=== PATIENT | male | born 1955 | race Caucasian/White ===

== ENCOUNTER 2018-06-09 07:11 | Day surgery (SDC) | payer BC, OTHER ==
[2018-06-05 12:45] VITALS: BMI 38.3
[~2018-06-09 07:11] MED LIST: LACTATED RINGERS 1,000 ML IV SCH; LIDOCAINE 1% 20 ML VIAL (10MG/ML) FOR IV START INTRADERMA PRN
[2018-06-09 07:28] VITALS: RESP 16; TEMP 97
[2018-06-09 07:32] LABS: Glucose,Whole Blood 147 mg/dL (75-99)
[2018-06-09] MEDS ORDERED: LIDOCAINE 1% INJ 10MG/ML (20 ML MDV) ONE (08:23)
[2018-06-09] MEDS ORDERED: PROPOFOL 10 MG/ML 20 ML VIAL IV ONE (08:23)
[2018-06-09] MEDS ORDERED: fentaNYL (PF) 50 MCG/ML 2 ML AMP ONE (08:23)
[2018-06-09 08:59] LABS: Glucose,Whole Blood 148 mg/dL (75-99)
--- NOTE | 2018-06-09 08:59 | P.PCN ---
Date of Procedure: 06/09/18 Procedure(s) Performed: Procedure: Total colonoscopy and polypectomy. Preoperative diagnosis: Blood in the stools. Postoperative diagnosis: 1. Sigmoid diverticulosis with no evidence of acute diverticulitis or strictures. 2. Two small polyps in the proximal sigmoid snared but no large polyps or cancer. Preparation: HalfLytely prep. Sedation: Was provided by anesthesia. Brief clinical history: The patient is 62-year-old male who is referred for this evaluation because of finding of occult blood in his stools. The patient has no abdominal complaints, bleeding or anemia. He has history of polyps and had prior colonoscopies the last was around 2-3 years ago. The patient has no overt bleeding, change in bowel habits or abdominal pain. There is no history of anemia. Procedure: With the patient on his left lateral decubitus position and after informed consent and adequate sedation, the perianal area was inspected and it did not show any fissures or fistulas. There were no masses felt on digital rectal examination. The Olympus CFQ 160L video colonoscope was then inserted in the rectum in the usual fashion and advanced to the cecum. There were a few diverticular orifices seen scattered in the distal sigmoid with no evidence of acute diverticulitis or strictures. The mucosa appeared healthy. 2 small polyps were seen in the proximal sigmoid which were snared and retrieved by suction but there were no large polyps or cancer. I retroflexed endoscope in the rectum before the endoscope was withdrawn. The patient tolerated the procedure well. Plan: The patient was reassured. In the absence of upper GI complaints or anemia, I did not recommend upper GI workup at this time for the workup of his Hemoccult positive stools and that can be kept as a contingency based on his course. With his history of polyps, I recommended repeat colonoscopy in 5 years.
[2018-06-09 09:17] VITALS: BP 160/95; PULSE 71
[2018-06-09] MEDS ORDERED: LIDOCAINE 1% 20 ML VIAL (10MG/ML) FOR IV START INTRADERMA PRN (19:04)
[2018-06-09] MEDS ORDERED: MIDAZOLAM 2 MG/2 ML VIAL IV PRN (19:04)
[2018-06-09] MEDS ORDERED: LACTATED RINGERS 1,000 ML IV SCH (19:15)
== END 2018-06-09 09:27 | disposition home or self-care (01) ==
LOC: ORWHC2ENDO 07:11
DX: D12.5 Benign neoplasm of sigmoid colon (principal); K57.30 Diverticulosis of large intestine without perforation or abscess without bleeding; K21.9 Gastro-esophageal reflux disease without esophagitis; E11.9 Type 2 diabetes mellitus without complications; Z79.4 Long term (current) use of insulin; I10 Essential (primary) hypertension; F17.210 Nicotine dependence, cigarettes, uncomplicated; Z79.899 Other long term (current) drug therapy
CPT/HCPCS: 88305; 45385; J2001; J3010; J2704

== ENCOUNTER 2018-07-30 14:11 | Emergency (ER) | payer OTHER ==
[2018-07-30] MEDS ORDERED: SODIUM CHLORIDE 0.9% 500 ML 500 ML IV ONE (14:38)
[2018-07-30] MEDS ORDERED: SODIUM CHLORIDE 0.9% 1,000 ML IV ONE (14:38)
[2018-07-30 15:24] VITALS: RESP 20
--- NOTE | 2018-07-30 15:25 | ED ---
General Adult HPI - General Chief complaint: Recheck/Abnormal Lab/Rx Stated complaint: muscle fatigue/joint pain Time Seen by Provider: 07/30/18 14:20 Source: patient, RN notes reviewed Mode of arrival: ambulatory Limitations: no limitations - History of Present Illness Initial comments: 62-year-old male presents emergency department for abnormal lab work. Patient states that his emts Dr. Charles referred him to the emergency department for IV fluids secondary to elevated CK level. Patient states that he 's been having muscle aches and pains diffusely over the last 6 weeks. He's had extensive outpatient testing and recently discontinued on Zocor today. Patient states that he is scheduled for right-sided ureteral muscle biopsy, EMG and further testing. Patient states that he was recently started on steroids and states that has to mostly helped his symptoms. Patient states he has had some joint swelling. Patient states she's had no other recent changes in medication or any other health history. Patient does admit to some fatigue. - Related Data Home Medications Medication Instructions Recorded Confirmed Enalapril [Vasotec] 20 mg PO DAILY 06/05/18 07/30/18 Naproxen [Naprosyn] 500 mg PO Q12HR PRN 06/05/18 07/30/18 Omeprazole [PriLOSEC] 20 mg PO AC-BRKFST 06/05/18 07/30/18 Sildenafil [Revatio] 20 mg PO DAILY 06/05/18 07/30/18 buPROPion HCL [buPROPion HCL SR] 150 mg PO BID 06/05/18 07/30/18 metFORMIN HCL [Glucophage] 1,000 mg PO BID 06/05/18 07/30/18 Atenolol [Tenormin] 50 mg PO DAILY 07/30/18 07/30/18 Insulin Glargine [Lantus] 100 unit SQ DAILY 07/30/18 07/30/18 Allergies Allergy/AdvReac Type Severity Reaction Status Date / Time No Known Allergies Allergy Verified 07/30/18 15:38 Review of Systems ROS Statement: Those systems with pertinent positive or pertinent negative responses have been documented in the HPI. ROS Other: All systems not noted in ROS Statement are negative. Past Medical History Past Medical History: Diabetes Mellitus, GERD/Reflux, Hypertension Additional Past Medical History / Comment(s): stool sample positive for blood History of Any Multi-Drug Resistant Organisms: None Reported Past Surgical History: Appendectomy, Hernia Repair, Orthopedic Surgery Additional Past Surgical History / Comment(s): UMB HERNIA. RT KNEE OSTEOCHONDROMA EXC. COLONOSCOPIES. Past Anesthesia/Blood Transfusion Reactions: No Reported Reaction Past Psychological History: Depression Smoking Status: Current every day smoker Past Alcohol Use History: Occasional Past Drug Use History: None Reported - Past Family History Mother Family Medical History: Cancer General Exam Limitations: no limitations General appearance: alert, in no apparent distress Head exam: Present: atraumatic, normocephalic, normal inspection Neck exam: Present: normal inspection, full ROM. Absent: tenderness, meningismus, lymphadenopathy Respiratory exam: Present: normal lung sounds bilaterally. Absent: respiratory distress, wheezes, rales, rhonchi, stridor Cardiovascular Exam: Present: regular rate, normal rhythm, normal heart sounds. Absent: systolic murmur, diastolic murmur, rubs, gallop, clicks GI/Abdominal exam: Present: soft, normal bowel sounds. Absent: distended, tenderness, guarding, rebound, rigid Extremities exam: Present: normal inspection, full ROM, normal capillary refill. Absent: tenderness, pedal edema, joint swelling, calf tenderness Neurological exam: Present: alert, oriented X3, CN II-XII intact, reflexes normal. Absent: motor sensory deficit Skin exam: Present: warm, dry, intact, normal color. Absent: rash Course Vital Signs 07/30/18 07/30/18 14:15 15:17 Temperature 98.1 F Pulse Rate 98 96 Respiratory 18 20 Rate Blood Pressure 145/73 159/71 O2 Sat by Pulse 97 96 Oximetry Medical Decision Making - Medical Decision Making 8-year-old male presented for elevated CK, hydration. Patient has been ongoing muscle aches and pains. Patient has no specific complaints. Patient CT is elevated at 1293. Patient was given 1500 mL of fluid in emergency department. He states he does feel improved. Patient is scheduled for further tests no patient. He did stop Zocor we discussed that he needs to have his blood redrawn and return for any new symptoms. - Lab Data Result diagrams: 07/30/18 15:00 07/30/18 15:00 Lab Results 07/30/18 07/30/18 07/30/18 Range/Units 15:00 15:00 15:00 WBC 12.6 H (3.8-10.6) k/uL RBC 4.66 (4.30-5.90) m/uL Hgb 9.5 L (13.0-17.5) gm/dL Hct 31.1 L (39.0-53.0) % MCV 66.8 L (80.0-100.0) fL MCH 20.3 L (25.0-35.0) pg MCHC 30.4 L (31.0-37.0) g/dL RDW 16.7 H (11.5-15.5) % Plt Count 437 (150-450) k/uL Neutrophils % 82 % Lymphocytes % 9 % Monocytes % 6 % Eosinophils % 1 % Basophils % 0 % Neutrophils # 10.3 H (1.3-7.7) k/uL Lymphocytes # 1.2 (1.0-4.8) k/uL Monocytes # 0.8 (0-1.0) k/uL Eosinophils # 0.1 (0-0.7) k/uL Basophils # 0.0 (0-0.2) k/uL Hypochromasia Marked Anisocytosis Slight Microcytosis Marked PT 10.1 (9.0-12.0) sec INR 1.0 (<1.2) APTT 25.0 (22.0-30.0) sec Sodium 133 L (137-145) mmol/L Potassium 5.2 H (3.5-5.1) mmol/L Chloride 100 (98-107) mmol/L Carbon Dioxide 22 (22-30) mmol/L Anion Gap 11 mmol/L BUN 23 H (9-20) mg/dL Creatinine 0.92 (0.66-1.25) mg/dL Est GFR (CKD-EPI)AfAm >90 (>60 ml/min/1.73 sqM) Est GFR (CKD-EPI)NonAf >90 (>60 ml/min/1.73 sqM) Glucose 192 H (74-99) mg/dL Calcium 9.1 (8.4-10.2) mg/dL Total Bilirubin 0.3 (0.2-1.3) mg/dL AST 89 H (17-59) U/L ALT 47 (21-72) U/L Alkaline Phosphatase 53 (38-126) U/L Creatine Kinase 1273 H* (55-170) U/L Total Protein 6.3 (6.3-8.2) g/dL Albumin 3.5 (3.5-5.0) g/dL Urine Color Urine Appearance (Clear) Urine pH (5.0-8.0) Ur Specific [place] (1.001-1.035) Urine Protein (Negative) Urine Glucose (UA) (Negative) Urine Ketones (Negative) Urine Blood (Negative) Urine Nitrite (Negative) Urine Bilirubin (Negative) Urine Urobilinogen (<2.0) mg/dL Ur Leukocyte Esterase (Negative) Urine Mucus (None) /hpf 07/30/18 Range/Units 15:35 WBC (3.8-10.6) k/uL RBC (4.30-5.90) m/uL Hgb (13.0-17.5) gm/dL Hct (39.0-53.0) % MCV (80.0-100.0) fL MCH (25.0-35.0) pg MCHC (31.0-37.0) g/dL RDW (11.5-15.5) % Plt Count (150-450) k/uL Neutrophils % % Lymphocytes % % Monocytes % % Eosinophils % % Basophils % % Neutrophils # (1.3-7.7) k/uL Lymphocytes # (1.0-4.8) k/uL Monocytes # (0-1.0) k/uL Eosinophils # (0-0.7) k/uL Basophils # (0-0.2) k/uL Hypochromasia Anisocytosis Microcytosis PT (9.0-12.0) sec INR (<1.2) APTT (22.0-30.0) sec Sodium (137-145) mmol/L Potassium (3.5-5.1) mmol/L Chloride (98-107) mmol/L Carbon Dioxide (22-30) mmol/L Anion Gap mmol/L BUN (9-20) mg/dL Creatinine (0.66-1.25) mg/dL Est GFR (CKD-EPI)AfAm (>60 ml/min/1.73 sqM) Est GFR (CKD-EPI)NonAf (>60 ml/min/1.73 sqM) Glucose (74-99) mg/dL Calcium (8.4-10.2) mg/dL Total Bilirubin (0.2-1.3) mg/dL AST (17-59) U/L ALT (21-72) U/L Alkaline Phosphatase (38-126) U/L Creatine Kinase (55-170) U/L Total Protein (6.3-8.2) g/dL Albumin (3.5-5.0) g/dL Urine Color Light Yellow Urine Appearance Clear (Clear) Urine pH 5.0 (5.0-8.0) Ur Specific [place] 1.005 (1.001-1.035) Urine Protein Negative (Negative) Urine Glucose (UA) Negative (Negative) Urine Ketones Negative (Negative) Urine Blood Trace H (Negative) Urine Nitrite Negative (Negative) Urine Bilirubin Negative (Negative) Urine Urobilinogen <2.0 (<2.0) mg/dL Ur Leukocyte Esterase Negative (Negative) Urine Mucus Rare H (None) /hpf Disposition Clinical Impression: Elevated CK, Myalgia Disposition: HOME SELF-CARE Condition: Stable Instructions: Musculoskeletal Pain (ED) Additional Instructions: Please return to the Emergency Department if symptoms worsen or any other concerns. Is patient prescribed a controlled substance at d/c from ED?: No Referrals: Ludy South MD [Primary Care Provider] - 1-2 days Time of Disposition: 16:08
[2018-07-30 15:28] LABS: Prothrombin Time 10.1 sec (9.0-12.0)
[2018-07-30 15:40] LABS: ALT 47 U/L (21-72); AST 89 U/L (17-59); Albumin 3.5 g/dL (3.5-5.0); Alkaline Phosphatase 53 U/L (38-126); Anion Gap 11 mmol/L; Blood Urea Nitrogen 23 mg/dL (9-20); Calcium 9.1 mg/dL (8.4-10.2); Carbon Dioxide 22 mmol/L (22-30); Chloride 100 mmol/L (98-107); Glucose 192 mg/dL (74-99); Potassium 5.2 mmol/L (3.5-5.1); Sodium 133 mmol/L (137-145); Total Bilirubin 0.3 mg/dL (0.2-1.3); Total Protein 6.3 g/dL (6.3-8.2)
[2018-07-30 15:42] LABS: Creatine Kinase 1273 U/L (55-170)
[2018-07-30 15:46] LABS: Anisocytosis Slight; Basophils % (A) 0 %; Eosinophils # (A) 0.1 k/uL (0-0.7); Eosinophils % (A) 1 %; HCT 31.1 % (39.0-53.0); HGB 9.5 gm/dL (13.0-17.5); Hypochromasia Marked; Lymphocytes # (A) 1.2 k/uL (1.0-4.8); Lymphocytes % (A) 9 %; MCH 20.3 pg (25.0-35.0); MCHC 30.4 g/dL (31.0-37.0); MCV 66.8 fL (80.0-100.0); Mean Platelet Volume 6.7; Microcytosis Marked; Monocytes # (A) 0.8 k/uL (0-1.0); Monocytes % (A) 6 %; Neutrophils # (A) 10.3 k/uL (1.3-7.7); Neutrophils % (A) 82 %; Platelet Count 437 k/uL (150-450); RBC 4.66 m/uL (4.30-5.90); RDW 16.7 % (11.5-15.5); WBC 12.6 k/uL (3.8-10.6)
[2018-07-30 15:46] LABS: Appearance,Urine Clear (Clear); Bilirubin,Urine Negative (Negative); Blood,Urine Trace (Negative); Color,Urine Light Yellow; Glucose,Urine (UA) Negative (Negative); Ketones,Urine Negative (Negative); Leukocyte Esterase,Urine Negative (Negative); Mucus,Urine Rare /hpf; Nitrite,Urine Negative (Negative); Protein,Urine Negative (Negative); Specific Gravity,Urine 1.005 (1.001-1.035); Urobilinogen,Urine <2.0 mg/dL (<2.0)
[2018-07-30 16:32] VITALS: BP 135/67; PULSE 82; TEMP 98.3
== END 2018-07-30 16:55 | disposition home or self-care (01) ==
LOC: EC 14:11
DX: M79.10 Myalgia, unspecified site (principal); R79.89 Other specified abnormal findings of blood chemistry; M25.40 Effusion, unspecified joint; D16.21 Benign neoplasm of long bones of right lower limb; E11.9 Type 2 diabetes mellitus without complications; K21.9 Gastro-esophageal reflux disease without esophagitis; I10 Essential (primary) hypertension; F32.9 Major depressive disorder, single episode, unspecified; F17.200 Nicotine dependence, unspecified, uncomplicated; Z79.4 Long term (current) use of insulin; Z79.899 Other long term (current) drug therapy
CPT/HCPCS: 36415; 80053; 81001; 82550; 85025; 85610; 85730; 96360; 99283

== ENCOUNTER 2018-07-31 06:30 | Day surgery (SDC) | payer OTHER ==
[2018-07-28 17:15] VITALS: BMI 39.0
[~2018-07-31 06:30] MED LIST changes: +HYDROmorphone 1 MG/ML 1 ML SYRINGE IVP PRN; +MIDAZOLAM 2 MG/2 ML VIAL IV PRN
[2018-07-31 07:12] VITALS: TEMP 98.6
[2018-07-31 07:21] LABS: Glucose,Whole Blood 100 mg/dL (75-99)
[2018-07-31] MEDS ORDERED: LACTATED RINGERS 1,000 ML IV ONE ×2 (07:21)
[2018-07-31] MEDS ORDERED: LIDOCAINE 1% INJ 10MG/ML (20 ML MDV) ONE (08:11)
[2018-07-31] MEDS ORDERED: PROPOFOL 10 MG/ML 20 ML VIAL IV ONE (08:11)
[2018-07-31 08:32] LABS: Glucose,Whole Blood 109 mg/dL (75-99)
[2018-07-31 08:33] VITALS: RESP 16
--- NOTE | 2018-07-31 08:33 | P.PCN ---
Date of Procedure: 07/31/18 Procedure(s) Performed: Procedure: Esophagogastroduodenoscopy and biopsy. Preoperative diagnosis: Anemia and and Hemoccult-positive stools. Postoperative diagnosis: 1. Small sliding hiatal hernia with no obvious esophagitis or complicated reflux disease. 2. Mild antral gastritis with no ulcers or gastric outlet obstruction or bleeding. 3. Multiple biopsies obtained from the duodenum, antrum and esophagus. Preparation and sedation: Was provided by anesthesia. Brief clinical history: The patient is a 62-year-old male who is scheduled for this evaluation because of anemia and Hemoccult-positive stools. He had a colonoscopy in May of this year that revealed diverticulosis but there was no findings to explain his anemia and occult blood positive stools. He was thus scheduled for this upper endoscopy. The patient had normal hemoglobin and normal MCV back in 2014. This year his hemoglobin was 9.3 with MCV around 66. No overt bleeding or upper GI complaints. Procedure: With the patient on his left lateral decubitus position and after informed consent and adequate sedation, I passed the Olympus-GIF 160 video upper endoscope through the cricopharyngeus down the esophagus. There was a small sliding hiatal hernia but no obvious esophagitis or complicated reflux disease. GE junction was around 40 cm from the incisors. The endoscope was then passed into the stomach which was insufflated with air and inspected in detail including the retroflex view in the cardia. There was some mottling and erythema in the antrum and several fading erosions but no obvious ulcers or bleeding. Pyloric channel, duodenal bulb, post bulbar area and descending duodenum appeared within normal limits. Because of his history, I obtained biopsies from the duodenum, antrum and esophagus then the endoscope was withdrawn. The patient tolerated the procedure well. Plan: The patient was reassured. Will await biopsy results. Consideration can be given for a capsule endoscopy if he continues to manifest blood loss anemia. He will follow up with you as planned and I will be happy to see in the office if needed.
[2018-07-31 08:46] VITALS: BP 161/80; PULSE 84
== END 2018-07-31 09:09 | disposition home or self-care (01) ==
LOC: ORWHC2ENDO 06:30
DX: K31.9 Disease of stomach and duodenum, unspecified (principal); K21.0 Gastro-esophageal reflux disease with esophagitis; K29.70 Gastritis, unspecified, without bleeding; K44.9 Diaphragmatic hernia without obstruction or gangrene; D64.9 Anemia, unspecified; R19.5 Other fecal abnormalities; E11.9 Type 2 diabetes mellitus without complications; I10 Essential (primary) hypertension; Z79.52 Long term (current) use of systemic steroids; Z79.899 Other long term (current) drug therapy; Z79.84 Long term (current) use of oral hypoglycemic drugs
CPT/HCPCS: 88305; 43239; J2001; J2704

== ENCOUNTER 2018-09-10 06:39 | Day surgery (SDC) | payer OTHER ==
[2018-09-09 12:06] VITALS: BMI 39.0
[~2018-09-10 06:39] MED LIST changes: +DEXAMETHASONE SOD PHOSPHATE 10 MG/ML 1 ML VIAL IV ONE; +HEPARIN SODIUM,PORCINE 5,000 UNIT/ML 1 ML VIAL SQ ONE; +ONDANSETRON 4 MG/2 ML VIAL IVP ONE; +Pre Op ABX Message 1 EACH MISC MISCELLANE ONE; +SCOPOLAMINE 1.5MG/72HR PATCH TRANSDERM ONE
[2018-09-10 07:41] VITALS: RESP 16; TEMP 98.4
--- NOTE | 2018-09-10 07:56 | P.GSHP ---
History of Present Illness H&P Date: 09/10/18 Chief Complaint: Myositis This is a 63-year-old male who presents today for a left thigh muscle biopsy. Patient is being worked up for myositis. Past Medical History Past Medical History: Diabetes Mellitus, GERD/Reflux, Hypertension, Osteoarthritis (OA), Prostate Disorder Additional Past Medical History / Comment(s): stool sample positive for blood, PULMONARY FIBROSIS , ANEMIA History of Any Multi-Drug Resistant Organisms: None Reported Past Surgical History: Appendectomy, Hernia Repair, Orthopedic Surgery Additional Past Surgical History / Comment(s): UMBILICA HERNIA. RT KNEE SURGERY . COLONOSCOPIES.EGD Past Anesthesia/Blood Transfusion Reactions: No Reported Reaction Smoking Status: Current every day smoker - Past Family History Mother Family Medical History: Cancer Medications and Allergies Home Medications Medication Instructions Recorded Confirmed Type Enalapril [Vasotec] 20 mg PO DAILY 06/05/18 09/10/18 History Naproxen [Naprosyn] 500 mg PO Q12HR PRN 06/05/18 09/10/18 History Omeprazole [PriLOSEC] 20 mg PO AC-BRKFST 06/05/18 09/10/18 History Sildenafil [Revatio] 20 mg PO DAILY 06/05/18 09/10/18 History buPROPion HCL [buPROPion HCL SR] 150 mg PO BID 06/05/18 09/10/18 History metFORMIN HCL [Glucophage] 1,000 mg PO BID 06/05/18 09/10/18 History Insulin Glargine [Lantus] 80 unit SQ DAILY 07/30/18 09/10/18 History Aspirin 325 mg PO DAILY 09/09/18 09/10/18 History Hydrochlorothiazide [Hydrodiuril] 25 mg PO BID 09/09/18 09/10/18 History Metoprolol Succinate (ER) [Toprol 50 mg PO DAILY 09/09/18 09/10/18 History Xl] Multivitamin [Men's Multi-Vitamin] 1 each PO DAILY 09/09/18 09/10/18 History glipiZIDE [Glucotrol] 10 mg PO AC-BID 09/09/18 09/10/18 History predniSONE 30 mg PO DAILY 09/09/18 09/10/18 History Allergies Allergy/AdvReac Type Severity Reaction Status Date / Time No Known Allergies Allergy Verified 09/10/18 07:41 Surgical - Exam Vital Signs Temp Pulse Resp BP Pulse Ox 98.4 F 103 H 16 146/75 96 09/10/18 07:39 09/10/18 07:39 09/10/18 07:39 09/10/18 07:39 09/10/18 07:39 - General well developed, no distress - Eyes PERRL - ENT normal pinna - Neck no masses - Respiratory normal expansion - Cardiovascular Rhythm: regular - Abdomen Abdomen: soft, non tender - Neurologic Weakness Assessment and Plan Assessment: Patient is being worked up for myositis. Patient undergo left thigh muscle biopsy patient is aware the risk of hematoma, bleeding infection.
[2018-09-10 08:09] LABS: Glucose,Whole Blood 112 mg/dL (75-99)
[2018-09-10] MEDS ORDERED: PROPOFOL 10 MG/ML 20 ML VIAL IV ONE (08:15)
[2018-09-10] MEDS ORDERED: KETOROLAC 30 MG/ML 1 ML VIAL ONE (08:15)
[2018-09-10] MEDS ORDERED: fentaNYL (PF) 50 MCG/ML 2 ML AMP ONE (08:15)
[2018-09-10] MEDS ORDERED: KETAMINE 10 MG/ML 20 ML VIAL ONE (08:15)
[2018-09-10] MEDS ORDERED: MIDAZOLAM 2 MG/2 ML VIAL ONE (08:15)
[2018-09-10] MEDS ORDERED: SODIUM CHLORIDE 0.9% 50 ML with ceFAZolin 2,000 MG IV ONE ×2 (08:20)
[2018-09-10] MEDS ORDERED: BUPIVACAIN-EPI 0.25%-1:200,000 30 ML VIAL SQ ONE ×3 (08:34)
--- NOTE | 2018-09-10 09:40 | P.OP ---
Date of Procedure: 09/10/18 Preoperative Diagnosis: Myositis Postoperative Diagnosis: Defer to pathology Myositis Procedure(s) Performed: Left anterior thigh muscle biopsy Anesthesia: MAC Surgeon: Gregg Garsia Estimated Blood Loss (ml): 5 Pathology: other (Left anterior thigh muscle biopsy) Condition: stable Disposition: PACU Description of Procedure: The patient's placed on the operative table in the supine position. He received IV sedation. His left thigh was prepped and draped usual sterile fashion. The area was localized 1% local Xylocaine. A lung to skin incision was made on the left anterior thigh. And then using cautery and subcu tissue divided. The fascial muscle was divided with sharp dissection and then a portion of the muscle was dissected free. The specimen measured 1.5 x 4 cm in length. The specimen was then divided following the muscle biopsy protocol. The specimen sent to pathology. His fashion was closed 0 Vicryl suture. The skin was closed interrupted 3-0 Monocryl suture. Dermabond was applied. Lakhwinder wrap was applied to the thigh. Patient top she will well and was sent to recovery in stable condition.
[2018-09-10 10:12] VITALS: BP 118/69; PULSE 93
== END 2018-09-10 10:34 | disposition home or self-care (01) ==
LOC: OR 06:39
PROVIDERS: ATTEND Surgery
DX: M62.552 Muscle wasting and atrophy, not elsewhere classified, left thigh (principal); E11.9 Type 2 diabetes mellitus without complications; K21.9 Gastro-esophageal reflux disease without esophagitis; I10 Essential (primary) hypertension; E78.5 Hyperlipidemia, unspecified; M19.90 Unspecified osteoarthritis, unspecified site; N42.9 Disorder of prostate, unspecified; J84.10 Pulmonary fibrosis, unspecified; D64.9 Anemia, unspecified; E66.01 Morbid (severe) obesity due to excess calories; Z68.39 Body mass index [BMI] 39.0-39.9, adult; F17.200 Nicotine dependence, unspecified, uncomplicated; Z79.82 Long term (current) use of aspirin; Z79.4 Long term (current) use of insulin; Z79.52 Long term (current) use of systemic steroids; Z79.899 Other long term (current) drug therapy
CPT/HCPCS: 20205; J2250; J1644; J2405; J3010; J1885; J0690; J2704

== ENCOUNTER 2019-01-22 15:05 | Inpatient (IN) | payer OTHER ==
[2019-01-22] MEDS ORDERED: ACETAMINOPHEN TAB 500 MG TAB PO STA (15:31)
[2019-01-22] MEDS ORDERED: SODIUM CHLORIDE 0.9% 1,000 ML IV STA ×2 (15:31→18:04)
[2019-01-22] MEDS ORDERED: SODIUM CHLORIDE 0.9% 500 ML 500 ML IV STA (15:31)
[2019-01-22] MEDS ORDERED: MORPHINE SULFATE 4 MG/ML SYRINGE IV STA (15:31)
[2019-01-22] MEDS ORDERED: IBUPROFEN 800 MG TAB PO STA (15:31)
[2019-01-22 16:11] LABS: ALT 20 U/L (21-72); AST 23 U/L (17-59); Albumin 3.8 g/dL (3.5-5.0); Alkaline Phosphatase 350 U/L (38-126); Anion Gap 12 mmol/L; Blood Urea Nitrogen 26 mg/dL (9-20); Calcium 9.6 mg/dL (8.4-10.2); Carbon Dioxide 22 mmol/L (22-30); Chloride 97 mmol/L (98-107); Glucose 330 mg/dL (74-99); Magnesium 1.3 mg/dL (1.6-2.3); Phosphorus 3.3 mg/dL (2.5-4.5); Potassium 4.5 mmol/L (3.5-5.1); Sodium 131 mmol/L (137-145); Total Bilirubin 0.5 mg/dL (0.2-1.3); Total Protein 6.8 g/dL (6.3-8.2)
[2019-01-22 16:12] LABS: Partial Thromboplastin Time 26.4 sec (22.0-30.0); Prothrombin Time 10.5 sec (9.0-12.0)
[2019-01-22 16:14] LABS: Anisocytosis Slight; HGB 11.8 gm/dL (13.0-17.5); Hypochromasia Moderate; MCHC 30.3 g/dL (31.0-37.0); MCV 69.4 fL (80.0-100.0); Mean Platelet Volume 6.9; Microcytosis Marked; Platelet Count 445 k/uL (150-450); RBC 5.62 m/uL (4.30-5.90); RDW 17.9 % (11.5-15.5); WBC 25.9 k/uL (3.8-10.6)
--- NOTE | 2019-01-22 16:19 | ED ---
Weakness HPI - General Chief complaint: Weakness Stated complaint: Pain everywhere, Nausea, Dizziness Time Seen by Provider: 01/22/19 15:31 Source: patient, RN notes reviewed, old records reviewed Mode of arrival: ambulatory Limitations: no limitations - History of Present Illness Initial comments: This is a 63-year-old male the ER for evaluation presents today for evaluation regards to weakness pain. Muscle pain bodyaches body pain. Not feeling well. Multiple different changes and lab values. Patient is recent diagnosis of polymyositis. He is on multiple new medications including steroids and CellCept. Patient has been taking medications as directed feels like his symptoms are progressively worsening. Patient denies fevers, no significant headaches she does admit to some weakness main complaint being pain MD Complaint: generalized weakness, numbness, lack of energy, difficulty walking -: month(s) Location: generalized Severity: moderate Severity scale (1-10): 6 Quality: tingling, aching, sharp Consistency: constant Improves with: none Worsens with: none Context: new medication, recent illness Associated Symptoms: denies other symptoms - Related Data Home Medications Medication Instructions Recorded Confirmed Enalapril [Vasotec] 20 mg PO DAILY 06/05/18 01/22/19 Naproxen [Naprosyn] 500 mg PO Q12HR PRN 06/05/18 01/22/19 Omeprazole [PriLOSEC] 20 mg PO AC-BRKFST 06/05/18 01/22/19 Sildenafil [Revatio] 20 mg PO DAILY 06/05/18 01/22/19 Metoprolol Succinate (ER) [Toprol 50 mg PO DAILY 09/09/18 01/22/19 Xl] Albuterol Inhaler [Ventolin Hfa 2 puff INHALATION RT-Q4H 01/22/19 01/22/19 Inhaler] Budesonide/Formoterol Fumarate 2 puff INHALATION BID 01/22/19 01/22/19 [Symbicort 160-4.5 Mcg Inhaler] Insulin Glargine [Lantus] 50 unit SQ DAILY 01/22/19 01/22/19 Iron Ag/C/B12/Ca/Suc.acid/Stom 2 tab PO DAILY 01/22/19 01/22/19 [Multigen] Mycophenolate Mofetil [Cellcept] 1,500 mg PO BID 01/22/19 01/22/19 glipiZIDE [Glucotrol] 10 mg PO DAILY 01/22/19 01/22/19 metFORMIN HCL [Glucophage] 1,000 mg PO DAILY 01/22/19 01/22/19 predniSONE 30 mg PO DAILY 01/22/19 01/22/19 Previous Rx's Medication Instructions Recorded Docusate [Colace] 100 mg PO BID #20 capsule 09/10/18 Allergies Allergy/AdvReac Type Severity Reaction Status Date / Time No Known Allergies Allergy Verified 01/22/19 16:35 Review of Systems ROS Statement: Those systems with pertinent positive or pertinent negative responses have been documented in the HPI. ROS Other: All systems not noted in ROS Statement are negative. Past Medical History Past Medical History: Diabetes Mellitus, GERD/Reflux, Hypertension, Osteoarthritis (OA), Prostate Disorder Additional Past Medical History / Comment(s): stool sample positive for blood, PULMONARY FIBROSIS , ANEMIA History of Any Multi-Drug Resistant Organisms: None Reported Past Surgical History: Appendectomy, Hernia Repair, Orthopedic Surgery Additional Past Surgical History / Comment(s): UMBILICA HERNIA. RT KNEE SURGERY . COLONOSCOPIES.EGD Past Anesthesia/Blood Transfusion Reactions: No Reported Reaction Past Psychological History: Depression Smoking Status: Current every day smoker Past Alcohol Use History: None Reported Past Drug Use History: None Reported - Past Family History Mother Family Medical History: Cancer General Exam Limitations: no limitations General appearance: alert, in no apparent distress Head exam: Present: atraumatic, normocephalic, normal inspection Eye exam: Present: normal appearance, PERRL, EOMI. Absent: scleral icterus, conjunctival injection, periorbital swelling ENT exam: Present: normal exam, mucous membranes moist Neck exam: Present: normal inspection. Absent: tenderness, meningismus, lymphadenopathy Respiratory exam: Present: normal lung sounds bilaterally. Absent: respiratory distress, wheezes, rales, rhonchi, stridor Cardiovascular Exam: Present: normal rhythm, tachycardia, normal heart sounds. Absent: systolic murmur, diastolic murmur, rubs, gallop, clicks GI/Abdominal exam: Present: soft, normal bowel sounds. Absent: distended, tenderness, guarding, rebound, rigid Extremities exam: Present: normal inspection, full ROM, normal capillary refill. Absent: tenderness, pedal edema, joint swelling, calf tenderness Back exam: Present: normal inspection Neurological exam: Present: alert, oriented X3, CN II-XII intact Psychiatric exam: Present: normal affect, normal mood Skin exam: Present: warm, dry, intact, normal color. Absent: rash Course Vital Signs 01/22/19 01/22/19 15:11 17:37 Temperature 97.5 F L 97.8 F Pulse Rate 117 H 94 Respiratory 22 16 Rate Blood Pressure 150/87 166/98 O2 Sat by Pulse 99 95 Oximetry - Reevaluation(s) Reevaluation #1: 01/22/19 16:19 Medical record is reviewed Reevaluation #2: 01/22/19 16:19 Evaluate patient for all medical records that they did bring in with patient's today Medical Decision Making - Medical Decision Making 63 male the ER for evaluation of pain right well. Changing white count. Diffuse body aches and pains and cough. Patient does have positive pneumonia will admit for IV antibiotics - Lab Data Result diagrams: 01/22/19 15:45 01/22/19 15:45 Lab Results 01/22/19 01/22/19 01/22/19 Range/Units 15:45 15:45 15:45 WBC 25.9 H (3.8-10.6) k/uL RBC 5.62 (4.30-5.90) m/uL Hgb 11.8 L (13.0-17.5) gm/dL Hct 39.0 (39.0-53.0) % MCV 69.4 L (80.0-100.0) fL MCH 21.0 L (25.0-35.0) pg MCHC 30.3 L (31.0-37.0) g/dL RDW 17.9 H (11.5-15.5) % Plt Count 445 (150-450) k/uL Neutrophils % (Manual) 48 % Band Neutrophils % 8 % Lymphocytes % (Manual) 10 % Monocytes % (Manual) 5 % Eosinophils % (Manual) 28 % Myelocytes % 2 % Neutrophils # (Manual) 14.50 H (1.3-7.7) k/uL Lymphocytes # (Manual) 2.59 (1.0-4.8) k/uL Monocytes # (Manual) 1.30 H (0-1.0) k/uL Eosinophils # (Manual) 7.25 H (0-0.7) k/uL Myelocytes # (Manual) 0.52 H (0) k/uL Nucleated RBCs 0 (0-0) /100 WBC Manual Slide Review Performed Toxic Vacuolation Present Large Platelets Present Polychromasia Present Hypochromasia Moderate Anisocytosis Slight Microcytosis Marked PT (9.0-12.0) sec INR (<1.2) APTT (22.0-30.0) sec Sodium 131 L (137-145) mmol/L Potassium 4.5 (3.5-5.1) mmol/L Chloride 97 L (98-107) mmol/L Carbon Dioxide 22 (22-30) mmol/L Anion Gap 12 mmol/L BUN 26 H (9-20) mg/dL Creatinine 0.77 (0.66-1.25) mg/dL Est GFR (CKD-EPI)AfAm >90 (>60 ml/min/1.73 sqM) Est GFR (CKD-EPI)NonAf >90 (>60 ml/min/1.73 sqM) Glucose 330 H (74-99) mg/dL Plasma Lactic Acid Iraj (0.7-2.0) mmol/L Calcium 9.6 (8.4-10.2) mg/dL Phosphorus 3.3 (2.5-4.5) mg/dL Magnesium 1.3 L (1.6-2.3) mg/dL Total Bilirubin 0.5 (0.2-1.3) mg/dL AST 23 (17-59) U/L ALT 20 L (21-72) U/L Alkaline Phosphatase 350 H (38-126) U/L Total Creatine Kinase (55-170) U/L CK-MB (CK-2) (0.0-2.4) ng/mL CK-MB (CK-2) Rel Index Troponin I (0.000-0.034) ng/mL C-Reactive Protein (<10.0) mg/L NT-Pro-B Natriuret Pep pg/mL Total Protein 6.8 (6.3-8.2) g/dL Albumin 3.8 (3.5-5.0) g/dL Urine Color Urine Appearance (Clear) Urine pH (5.0-8.0) Ur Specific [place] (1.001-1.035) Urine Protein (Negative) Urine Glucose (UA) (Negative) Urine Ketones (Negative) Urine Blood (Negative) Urine Nitrite (Negative) Urine Bilirubin (Negative) Urine Urobilinogen (<2.0) mg/dL Ur Leukocyte Esterase (Negative) Urine RBC (0-5) /hpf Urine WBC (0-5) /hpf Hyaline Casts (0-2) /lpf Urine Mucus (None) /hpf Influenza Type A RNA Not Detected (Not Detectd) Influenza Type B (PCR) Not Detected (Not Detectd) 01/22/19 01/22/19 01/22/19 Range/Units 15:45 15:45 15:45 WBC (3.8-10.6) k/uL RBC (4.30-5.90) m/uL Hgb (13.0-17.5) gm/dL Hct (39.0-53.0) % MCV (80.0-100.0) fL MCH (25.0-35.0) pg MCHC (31.0-37.0) g/dL RDW (11.5-15.5) % Plt Count (150-450) k/uL Neutrophils % (Manual) % Band Neutrophils % % Lymphocytes % (Manual) % Monocytes % (Manual) % Eosinophils % (Manual) % Myelocytes % % Neutrophils # (Manual) (1.3-7.7) k/uL Lymphocytes # (Manual) (1.0-4.8) k/uL Monocytes # (Manual) (0-1.0) k/uL Eosinophils # (Manual) (0-0.7) k/uL Myelocytes # (Manual) (0) k/uL Nucleated RBCs (0-0) /100 WBC Manual Slide Review Toxic Vacuolation Large Platelets Polychromasia Hypochromasia Anisocytosis Microcytosis PT 10.5 (9.0-12.0) sec INR 1.0 (<1.2) APTT 26.4 (22.0-30.0) sec Sodium (137-145) mmol/L Potassium (3.5-5.1) mmol/L Chloride (98-107) mmol/L Carbon Dioxide (22-30) mmol/L Anion Gap mmol/L BUN (9-20) mg/dL Creatinine (0.66-1.25) mg/dL Est GFR (CKD-EPI)AfAm (>60 ml/min/1.73 sqM) Est GFR (CKD-EPI)NonAf (>60 ml/min/1.73 sqM) Glucose (74-99) mg/dL Plasma Lactic Acid Iraj 1.7 (0.7-2.0) mmol/L Calcium (8.4-10.2) mg/dL Phosphorus (2.5-4.5) mg/dL Magnesium (1.6-2.3) mg/dL Total Bilirubin (0.2-1.3) mg/dL AST (17-59) U/L ALT (21-72) U/L Alkaline Phosphatase (38-126) U/L Total Creatine Kinase (55-170) U/L CK-MB (CK-2) (0.0-2.4) ng/mL CK-MB (CK-2) Rel Index Troponin I (0.000-0.034) ng/mL C-Reactive Protein (<10.0) mg/L NT-Pro-B Natriuret Pep 156 pg/mL Total Protein (6.3-8.2) g/dL Albumin (3.5-5.0) g/dL Urine Color Urine Appearance (Clear) Urine pH (5.0-8.0) Ur Specific [place] (1.001-1.035) Urine Protein (Negative) Urine Glucose (UA) (Negative) Urine Ketones (Negative) Urine Blood (Negative) Urine Nitrite (Negative) Urine Bilirubin (Negative) Urine Urobilinogen (<2.0) mg/dL Ur Leukocyte Esterase (Negative) Urine RBC (0-5) /hpf Urine WBC (0-5) /hpf Hyaline Casts (0-2) /lpf Urine Mucus (None) /hpf Influenza Type A RNA (Not Detectd) Influenza Type B (PCR) (Not Detectd) 01/22/19 01/22/19 01/22/19 Range/Units 15:45 15:45 15:45 WBC (3.8-10.6) k/uL RBC (4.30-5.90) m/uL Hgb (13.0-17.5) gm/dL Hct (39.0-53.0) % MCV (80.0-100.0) fL MCH (25.0-35.0) pg MCHC (31.0-37.0) g/dL RDW (11.5-15.5) % Plt Count (150-450) k/uL Neutrophils % (Manual) % Band Neutrophils % % Lymphocytes % (Manual) % Monocytes % (Manual) % Eosinophils % (Manual) % Myelocytes % % Neutrophils # (Manual) (1.3-7.7) k/uL Lymphocytes # (Manual) (1.0-4.8) k/uL Monocytes # (Manual) (0-1.0) k/uL Eosinophils # (Manual) (0-0.7) k/uL Myelocytes # (Manual) (0) k/uL Nucleated RBCs (0-0) /100 WBC Manual Slide Review Toxic Vacuolation Large Platelets Polychromasia Hypochromasia Anisocytosis Microcytosis PT (9.0-12.0) sec INR (<1.2) APTT (22.0-30.0) sec Sodium (137-145) mmol/L Potassium (3.5-5.1) mmol/L Chloride (98-107) mmol/L Carbon Dioxide (22-30) mmol/L Anion Gap mmol/L BUN (9-20) mg/dL Creatinine (0.66-1.25) mg/dL Est GFR (CKD-EPI)AfAm (>60 ml/min/1.73 sqM) Est GFR (CKD-EPI)NonAf (>60 ml/min/1.73 sqM) Glucose (74-99) mg/dL Plasma Lactic Acid Iraj (0.7-2.0) mmol/L Calcium (8.4-10.2) mg/dL Phosphorus (2.5-4.5) mg/dL Magnesium (1.6-2.3) mg/dL Total Bilirubin (0.2-1.3) mg/dL AST (17-59) U/L ALT (21-72) U/L Alkaline Phosphatase (38-126) U/L Total Creatine Kinase 36 L (55-170) U/L CK-MB (CK-2) 1.7 (0.0-2.4) ng/mL CK-MB (CK-2) Rel Index 4.7 Troponin I <0.012 (0.000-0.034) ng/mL C-Reactive Protein 54.9 H (<10.0) mg/L NT-Pro-B Natriuret Pep pg/mL Total Protein (6.3-8.2) g/dL Albumin (3.5-5.0) g/dL Urine Color Urine Appearance (Clear) Urine pH (5.0-8.0) Ur Specific [place] (1.001-1.035) Urine Protein (Negative) Urine Glucose (UA) (Negative) Urine Ketones (Negative) Urine Blood (Negative) Urine Nitrite (Negative) Urine Bilirubin (Negative) Urine Urobilinogen (<2.0) mg/dL Ur Leukocyte Esterase (Negative) Urine RBC (0-5) /hpf Urine WBC (0-5) /hpf Hyaline Casts (0-2) /lpf Urine Mucus (None) /hpf Influenza Type A RNA (Not Detectd) Influenza Type B (PCR) (Not Detectd) 01/22/19 Range/Units 17:09 WBC (3.8-10.6) k/uL RBC (4.30-5.90) m/uL Hgb (13.0-17.5) gm/dL Hct (39.0-53.0) % MCV (80.0-100.0) fL MCH (25.0-35.0) pg MCHC (31.0-37.0) g/dL RDW (11.5-15.5) % Plt Count (150-450) k/uL Neutrophils % (Manual) % Band Neutrophils % % Lymphocytes % (Manual) % Monocytes % (Manual) % Eosinophils % (Manual) % Myelocytes % % Neutrophils # (Manual) (1.3-7.7) k/uL Lymphocytes # (Manual) (1.0-4.8) k/uL Monocytes # (Manual) (0-1.0) k/uL Eosinophils # (Manual) (0-0.7) k/uL Myelocytes # (Manual) (0) k/uL Nucleated RBCs (0-0) /100 WBC Manual Slide Review Toxic Vacuolation Large Platelets Polychromasia Hypochromasia Anisocytosis Microcytosis PT (9.0-12.0) sec INR (<1.2) APTT (22.0-30.0) sec Sodium (137-145) mmol/L Potassium (3.5-5.1) mmol/L Chloride (98-107) mmol/L Carbon Dioxide (22-30) mmol/L Anion Gap mmol/L BUN (9-20) mg/dL Creatinine (0.66-1.25) mg/dL Est GFR (CKD-EPI)AfAm (>60 ml/min/1.73 sqM) Est GFR (CKD-EPI)NonAf (>60 ml/min/1.73 sqM) Glucose (74-99) mg/dL Plasma Lactic Acid Iraj (0.7-2.0) mmol/L Calcium (8.4-10.2) mg/dL Phosphorus (2.5-4.5) mg/dL Magnesium (1.6-2.3) mg/dL Total Bilirubin (0.2-1.3) mg/dL AST (17-59) U/L ALT (21-72) U/L Alkaline Phosphatase (38-126) U/L Total Creatine Kinase (55-170) U/L CK-MB (CK-2) (0.0-2.4) ng/mL CK-MB (CK-2) Rel Index Troponin I (0.000-0.034) ng/mL C-Reactive Protein (<10.0) mg/L NT-Pro-B Natriuret Pep pg/mL Total Protein (6.3-8.2) g/dL Albumin (3.5-5.0) g/dL Urine Color Yellow Urine Appearance Clear (Clear) Urine pH 5.5 (5.0-8.0) Ur Specific [place] 1.030 (1.001-1.035) Urine Protein 1+ H (Negative) Urine Glucose (UA) 4+ H (Negative) Urine Ketones 1+ H (Negative) Urine Blood Negative (Negative) Urine Nitrite Negative (Negative) Urine Bilirubin Negative (Negative) Urine Urobilinogen <2.0 (<2.0) mg/dL Ur Leukocyte Esterase Negative (Negative) Urine RBC <1 (0-5) /hpf Urine WBC 1 (0-5) /hpf Hyaline Casts 1 (0-2) /lpf Urine Mucus Occasional H (None) /hpf Influenza Type A RNA (Not Detectd) Influenza Type B (PCR) (Not Detectd) - EKG Data -: EKG Interpreted by Me (EKG shows sinus tachycardia rate 110, ID 160, QRS 90, QTc 460) - Radiology Data Radiology results: report reviewed (Chest x-rays positive for pneumonia), image reviewed Disposition Clinical Impression: Community acquired pneumonia Disposition: ADMITTED IP TO THIS HOSP Condition: Good Is patient prescribed a controlled substance at d/c from ED?: No Referrals: Ludy South MD [Primary Care Provider] - 1-2 days
[2019-01-22] MEDS: SODIUM CHLORIDE 0.9% 1,000 ML IV STA ×2 (16:23→20:33)
[2019-01-22 16:55] LABS: Band Neutrophils % 8 %; Eosinophils # (M) 7.25 k/uL (0-0.7); Lymphocytes # (M) 2.59 k/uL (1.0-4.8); Myelocytes # (M) 0.52 k/uL (0); Myelocytes % 2 %; Neutrophils % (M) 48 %; Nucleated Red Blood Cells 0 /100 WBC (0-0); Total Cells Counted 200
[2019-01-22 16:56] LABS: Large Platelets Present; Toxic Vacuolation Present
[2019-01-22 16:57] LABS: Polychromasia Present
[2019-01-22 17:22] LABS: Appearance,Urine Clear (Clear); Bilirubin,Urine Negative (Negative); Blood,Urine Negative (Negative); Color,Urine Yellow; Glucose,Urine (UA) 4+ (Negative); Hyaline Casts,Urine 1 /lpf (0-2); Ketones,Urine 1+ (Negative); Leukocyte Esterase,Urine Negative (Negative); Mucus,Urine Occasional /hpf; Nitrite,Urine Negative (Negative); PH, Urine 5.5 (5.0-8.0); Protein,Urine 1+ (Negative); RBC,Urine <1 /hpf (0-5); Urobilinogen,Urine <2.0 mg/dL (<2.0); WBC,Urine 1 /hpf (0-5)
[2019-01-22] MEDS ORDERED: MORPHINE SULFATE 4 MG/ML SYRINGE IVP STA (17:54)
[2019-01-22 19:02] LABS: Creatine Kinase MB 1.7 ng/mL (0.0-2.4)
--- NOTE | 2019-01-22 19:11 | XR ---
EXAMINATION TYPE: XR chest 2V DATE OF EXAM: 01/22/2019 COMPARISON: NONE HISTORY: Pain and dizziness TECHNIQUE: Frontal and lateral views of the chest are obtained. FINDINGS: Heart and mediastinum are normal. There is patchy airspace infiltrate throughout the left lower lobe. There is small linear infiltrate right lower lobe. There is no heart failure. There is sl ight blunting left costophrenic angle. IMPRESSION: Left lower lobe pneumonia. Minimal infiltrate right lung. No heart failure seen.
[2019-01-22] MEDS: MAGNESIUM SULFATE-D5W PMX 1 GM in DEXTROSE/WATER 1 100ML.BAG IVPB SCH ×2 (19:18→20:26)
[2019-01-22] MEDS ORDERED: PNEUMONIA PROTOCOL UTILIZED 1 EACH MISC PO PRN (19:33)
[2019-01-22] MEDS ORDERED: PIPERACILLIN-TAZOBACTAM 3.375 GM in SODIUM CHLORIDE 0.9% 100 ML IVPB STA (19:48)
[2019-01-22] MEDS ORDERED: IPRATROPIUM-ALBUTEROL 3 ML NEB INHALATION PRN (19:48)
[2019-01-22] MEDS ORDERED: LEVOFLOXACIN 750MG-D5W PMX 750 MG in DEXTROSE/WATER 1 150ML.BAG IVPB STA (19:48)
[2019-01-22] MEDS ORDERED: VANCOMYCIN IV PER PHARMACY 1 EACH MISC MISCELLANE PRN (19:50)
[2019-01-22] MEDS ORDERED: VANCOMYCIN 1,750 MG in SODIUM CHLORIDE 0.9% 500 ML 500 ML IVPB ONE (20:30)
[2019-01-22 21:29] VITALS: BMI 35.5
[2019-01-22] MEDS ORDERED: ALPRAZolam 0.25 MG TAB PO PRN (22:08)
[2019-01-22] MEDS: SODIUM CHLORIDE 0.9% 1,000 ML IV SCH (22:13)
[2019-01-22] MEDS: MYCOPHENOLATE MOFETIL 500 MG TAB PO SCH (22:27)
[2019-01-22] MEDS: DOCUSATE 100 MG CAP PO SCH (22:27)
[2019-01-22] MEDS: MORPHINE SULFATE 4 MG/ML SYRINGE IVP PRN (22:27)
[2019-01-23] MEDS: SYMBICORT 160-4.5 MCG INHALER INHALATION SCH ×3 (00:02→20:16)
[2019-01-23] MEDS: ALBUTEROL NEBULIZED 2.5 MG/3 ML INHALATION SCH ×8 (00:11→23:47)
[2019-01-23] MEDS: MORPHINE SULFATE 4 MG/ML SYRINGE IVP PRN ×5 (01:27→13:54)
[2019-01-23] MEDS: VANCOMYCIN 1,750 MG in SODIUM CHLORIDE 0.9% 500 ML 500 ML IVPB SCH ×3 (04:09→21:01)
[2019-01-23] MEDS: PIPERACILLIN-TAZOBACTAM 3.375 GM in SODIUM CHLORIDE 0.9% 100 ML IVPB SCH ×3 (04:09→16:50)
[2019-01-23] MEDS: SODIUM CHLORIDE 0.9% 1,000 ML IV SCH ×2 (06:11→18:17)
[2019-01-23 07:13] LABS: Glucose,Whole Blood 180 mg/dL (75-99)
[2019-01-23] MEDS: INSULIN ASPART (NovoLOG) 100 UNIT/ML VIAL SQ SCH ×4 (07:43→22:39)
[2019-01-23] MEDS: MYCOPHENOLATE MOFETIL 500 MG TAB PO SCH ×2 (08:32→20:50)
[2019-01-23] MEDS: DOCUSATE 100 MG CAP PO SCH ×2 (08:33→20:50)
[2019-01-23] MEDS: NICOTINE 21MG/24HR PATCH TRANSDERM SCH (08:33)
--- NOTE | 2019-01-23 09:09 | XR ---
EXAMINATION TYPE: XR chest 2V DATE OF EXAM: 01/23/2019 COMPARISON: 01/22/2019 HISTORY: Chest pain TECHNIQUE: Frontal and lateral views of the chest are obtained. FINDINGS: There is slight improved aeration of the left perihilar and left basilar airspace disease. Faint opacity also overlies the right hemidiaphragm. Cardiomediastinal silhouette is stable and with in normal limits. No sizable right pleural effusion. Probable trace left pleural effusion tracks up t he left hemithorax. No pneumothorax. Osseous structures appear grossly intact. IMPRESSION: Slightly improved multifocal pneumonia with probable trace left pleural effusion.
[2019-01-23 11:57] LABS: Glucose,Whole Blood 195 mg/dL (75-99)
--- NOTE | 2019-01-23 12:24 | P.CNPUL ---
History of Present Illness Consult date: 01/23/19 Requesting physician: Mihai Godwin Reason for consult: abnormal CXR/CT Chief complaint: Insomnia, chronic pain History of present illness: This is a very pleasant 63-year-old male patient who follows with Dr. South as his primary care physician. He has a history of diabetes mellitus, gastro esophageal reflux disease, hypertension. He was diagnosed with polymyositis via left thigh muscle biopsy approximately 7 months ago and has been on CellCept and prednisone. A chest x-ray from July 2018 revealed persistent multifocal opacities similar in comparison to an exam of 07/17/2018. Computed tomography scan from that time also revealed low lung volumes with lower lung fibrosis most prominent near diaphragms and areas of acute infiltrate or consolidation more difficult to exclude based on these findings. He was sent to Dr. Livingston in our office in September 2018 for the pulmonary fibrotic changes. Pulmonary function testing revealed both obstructive changes with an FEV1 value 65% of predicted as well as restrictive changes due to muscle weakness. 6 minute walk did not reveal any significant desaturations less than 88%. He was initiated on Symbicort and albuterol for the COPD. Lung biopsy was recommended as well however the patient wanted to hold off. He is due to see him again in 02/10/2019. The patient presented here yesterday with complaints of insomnia over the past several months. He also has chronic and ongoing issues with pain. He states approximately 3 weeks ago his CellCept was increased to 1500 mg twice a day and his prednisone was decreased from 30 mg daily to 30 mg alternating with 25 mg daily. Since that time he has had progressive weakness. He increase his prednisone back to 30 mg a day without any significant improvement. They're following his CK levels in the outpatient setting. His chest x-ray here revealed questionable multifocal pneumonia with a trace left pleural effusion. The patient really has no pulmonary complaints. No worsening shortness of breath, cough or congestion. No fever chills or night sweats. He is maintaining O2 saturations in the mid to upper 90s on room air. He's been afebrile. Slightly hypertensive. White count 25.9. Neutrophils 14.5. Sodium 131. Potassium 4.5. Chloride 97. Creatinine 0.77. Total creatinine kinase 36. C-reactive protein 54.9. Troponin negative. Influenza screen negative. The patient was initiated on vancomycin, Levaquin, Zosyn. Currently on Symbicort and bronchodilators. Review of Systems REVIEW OF SYSTEMS: CONSTITUTIONAL: Progressive weakness. Denies any recent significant weight loss or weight gain. EYES: Denies change in vision. EARS, NOSE, MOUTH, THROAT: Denies headaches, denies sore throat. CARDIOVASCULAR: Denies chest pain, palpitations or syncopal episodes. RESPIRATORY: Denies shortness of breath, cough, congestion or hemoptysis. GASTROINTESTINAL: Denies change in appetite, denies abdominal pain GENITOURINARY: Denies hematuria, denies infections. MUSKULOSKELETAL: Complaining of significant muscle pain and weakness. INTEGUMENTARY: Denies rash, denies eczema. NEUROLOGICAL: Denies recent memory loss, no recent seizure activity. PSYCHIATRIC: Denies anxiety, denies depression. HEMATOLOGIC/LYMPHATIC: Denies anemia, denies enlarged lymph nodes. Past Medical History Past Medical History: Diabetes Mellitus, GERD/Reflux, Hypertension, Osteoarthritis (OA), Prostate Disorder Additional Past Medical History / Comment(s): PULMONARY FIBROSIS , ANEMIA, polymyocitis History of Any Multi-Drug Resistant Organisms: None Reported Past Surgical History: Appendectomy, Hernia Repair, Orthopedic Surgery Additional Past Surgical History / Comment(s): UMBILICA HERNIA. RT KNEE SURGERY . COLONOSCOPIES.EGD Past Anesthesia/Blood Transfusion Reactions: No Reported Reaction Past Psychological History: Depression Smoking Status: Current every day smoker Past Alcohol Use History: None Reported Additional Past Alcohol Use History / Comment(s): SMOKING SINCE 1969, 1 PPD. Past Drug Use History: None Reported - Past Family History Mother Family Medical History: Cancer Medications and Allergies Home Medications Medication Instructions Recorded Confirmed Type Enalapril [Vasotec] 20 mg PO DAILY 06/05/18 01/22/19 History Naproxen [Naprosyn] 500 mg PO Q12HR PRN 06/05/18 01/22/19 History Omeprazole [PriLOSEC] 20 mg PO AC-BRKFST 06/05/18 01/22/19 History Sildenafil [Revatio] 20 mg PO DAILY 06/05/18 01/22/19 History Metoprolol Succinate (ER) [Toprol 50 mg PO DAILY 09/09/18 01/22/19 History Xl] Docusate [Colace] 100 mg PO BID #20 capsule 09/10/18 01/22/19 Rx Albuterol Inhaler [Ventolin Hfa 2 puff INHALATION RT-Q4H 01/22/19 01/22/19 History Inhaler] Budesonide/Formoterol Fumarate 2 puff INHALATION BID 01/22/19 01/22/19 History [Symbicort 160-4.5 Mcg Inhaler] Insulin Glargine [Lantus] 50 unit SQ DAILY 01/22/19 01/22/19 History Iron Ag/C/B12/Ca/Suc.acid/Stom 2 tab PO DAILY 01/22/19 01/22/19 History [Multigen] Mycophenolate Mofetil [Cellcept] 1,500 mg PO BID 01/22/19 01/22/19 History glipiZIDE [Glucotrol] 10 mg PO DAILY 01/22/19 01/22/19 History metFORMIN HCL [Glucophage] 1,000 mg PO DAILY 01/22/19 01/22/19 History predniSONE 30 mg PO DAILY 01/22/19 01/22/19 History Allergies Allergy/AdvReac Type Severity Reaction Status Date / Time No Known Allergies Allergy Verified 01/22/19 16:35 Physical Exam Vitals: Vital Signs Temp Pulse Pulse Resp BP BP Pulse Ox 01/23/19 07:00 98.4 F 94 17 161/109 98 01/23/19 01:30 98.2 F 101 H 19 176/98 96 01/22/19 21:07 97.8 F 88 18 168/89 98 01/22/19 20:38 97.8 F 86 18 165/88 96 01/22/19 18:30 84 16 159/78 98 01/22/19 17:37 97.8 F 94 16 166/98 95 01/22/19 15:11 97.5 F L 117 H 22 150/87 99 Intake and Output 01/22/19 01/23/19 01/23/19 22:59 06:59 14:59 Intake Total 480 Balance 480 Intake: Oral 480 Other: Voiding Method Toilet # Voids 1 Weight 115.666 kg GENERAL EXAM: Alert, fairly comfortable in no apparent distress. On room air. HEAD: Normocephalic. EYES: Normal reaction of pupils, equal size. NOSE: Clear with pink turbinates. THROAT: No erythema or exudates. NECK: No masses, no JVD. CHEST: No chest wall deformity. LUNGS: Equal air entry with few scattered rhonchi, diminished CVS: S1 and S2 normal with no audible murmur, regular rhythm. ABDOMEN: No hepatosplenomegaly, normal bowel sounds, no guarding or rigidity. SPINE: No scoliosis or deformity SKIN: No rashes CENTRAL NERVOUS SYSTEM: No focal deficits, tone is normal in all 4 extremities. Complains of progressive weakness. EXTREMITIES: There is no peripheral edema. No clubbing, no cyanosis. Peripheral pulses are intact. Results - Laboratory Findings CBC and BMP: 01/24/19 03:31 01/24/19 03:31 PT/INR, D-dimer PT 10.5 sec (9.0-12.0) 01/22/19 15:45 INR 1.0 (<1.2) 01/22/19 15:45 Abnormal lab findings: Abnormal Labs 01/22/19 01/22/19 01/22/19 15:45 15:45 15:45 WBC 25.9 H Hgb 11.8 L MCV 69.4 L MCH 21.0 L MCHC 30.3 L RDW 17.9 H Neutrophils # (Manual) 14.50 H Monocytes # (Manual) 1.30 H Eosinophils # (Manual) 7.25 H Myelocytes # (Manual) 0.52 H ESR Sodium 131 L Chloride 97 L BUN 26 H Glucose 330 H POC Glucose (mg/dL) Magnesium 1.3 L ALT 20 L Alkaline Phosphatase 350 H Total Creatine Kinase C-Reactive Protein 54.9 H Urine Protein Urine Glucose (UA) Urine Ketones Urine Mucus 01/22/19 01/22/19 01/22/19 15:45 17:09 20:43 WBC Hgb MCV MCH MCHC RDW Neutrophils # (Manual) Monocytes # (Manual) Eosinophils # (Manual) Myelocytes # (Manual) ESR 58 H Sodium Chloride BUN Glucose POC Glucose (mg/dL) Magnesium ALT Alkaline Phosphatase Total Creatine Kinase 36 L C-Reactive Protein Urine Protein 1+ H Urine Glucose (UA) 4+ H Urine Ketones 1+ H Urine Mucus Occasional H 01/23/19 01/23/19 07:12 11:42 WBC Hgb MCV MCH MCHC RDW Neutrophils # (Manual) Monocytes # (Manual) Eosinophils # (Manual) Myelocytes # (Manual) ESR Sodium Chloride BUN Glucose POC Glucose (mg/dL) 180 H 195 H Magnesium ALT Alkaline Phosphatase Total Creatine Kinase C-Reactive Protein Urine Protein Urine Glucose (UA) Urine Ketones Urine Mucus - Diagnostic Findings Chest x-ray: image reviewed Assessment and Plan Assessment: Impression: #1 Progressive pain and weakness secondary to polymyositis, biopsy proven. On CellCept and prednisone. #2 Insomnia suspect secondary to prednisone. #3 Dyspnea on exertion secondary to progressive weakness, chronic tobacco dependence, pulmonary fibrosis, COPD. #4 Pulmonary fibrosis may need open lung biopsy at some point. #5 Chronic obstructive pulmonary disease, currently inactive and stable. #6 Chronic tobacco dependence. 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 #8 Diabetes mellitus. #9 Hypertension. Plan: The patient was seen and evaluated by Dr. Negron. Chest x-ray and labs reviewed. Cannot completely rule out underlying pneumonia. We'll keep the patient on Levaquin only. He did mention probably needing open lung biopsy. The patient is planning to be seen at the [facility] and will keep that appointment. We'll continue to follow and make further recommendations based on his clinical status. I, the cosigning physician, performed a history & physical examination of the patient. Lungs sounds crackles in the bilateral posterior bases. Maintaining good O2 saturations in the 90s on room air. I discussed the assessment and plan of care with my nurse practitioner, Griselda Yeh. I attest to the above consultation as dictated by her. Time with Patient: Greater than 30
[2019-01-23] MEDS ORDERED: NAPROXEN 250 MG TAB PO PRN (16:48)
[2019-01-23] MEDS: HYDROcodone/APAP 5-325MG 1 EACH TAB PO PRN ×2 (16:50→22:53)
[2019-01-23] MEDS ORDERED: Magnesium Replacement Protocol 1 EACH MISC MISCELLANE PRN (16:52)
[2019-01-23 17:15] LABS: Glucose,Whole Blood 180 mg/dL (75-99)
[2019-01-23] MEDS: INSULIN DETEMIR (LEVEMIR) 100 UNIT/ML SYR SQ SCH (18:17)
[2019-01-23] MEDS: metFORMIN 500 MG TAB PO SCH (18:17)
[2019-01-23] MEDS: methylPREDNISolone SOD SUCCI 125 MG/2 ML VIAL IV SCH (18:19)
--- NOTE | 2019-01-23 19:50 | HP ---
HISTORY AND PHYSICAL DATE OF SERVICE: 01/23/2019 CHIEF COMPLAINTS: Weakness, shortness of breath, nausea, dizziness and diffuse aches and pains. HISTORY OF PRESENT ILLNESS: This 63-year-old gentleman with a past medical history of multiple medical problems, being followed by Dr. South in the outpatient setting, has a history of diabetes mellitus, GERD, hypertension, DJD, history of pulmonary fibrosis and anemia. The patient was recently diagnosed with polymyositis. Patient is on multiple medications, including CellCept and steroids. The dose was being adjusted; however, the patient was complaining of weakness and tiredness. The patient also complained of severe muscle aches. The patient was not feeling well and also had progressive worsening of cough associated with that. The patient came to [facility] ER and was admitted for further evaluation. White count was elevated at 25.9. Pneumonia is suspected at this time. Patient's MCV is 69.4, hemoglobin 11.8. The patient also had multiple other abnormalities, including hyponatremia and elevated blood glucose. The magnesium was 1.3. Alkaline phosphatase was elevated at 350. Patient's creatine kinase is on a downward trend, according to him. C-reactive protein is 54.9. UA was noted. Influenza negative. The chest x-ray, which was reviewed personally by me, showed evidence of bilateral infiltrates. Dr. Negron's evaluation is in progress. The patient also apparently has a scheduled appointment at [facility] for a second opinion. There is no history of any headache, loss of consciousness, seizures at this time. PAST MEDICAL HISTORY: 1. Recently diagnosed polymyositis after a muscle biopsy of the left thigh. 2. Diabetes mellitus, type 2. 3. GERD. 4. Hypertension. 5. History of DJD. 6. History of prostate disorder. 7. History of pulmonary fibrosis. 8. Appendectomy. 9. Hernia surgery. HOME MEDICATIONS: 1. Glipizide 10 mg p.o. daily. 2. Iron 2 tablets p.o. daily. 3. Vasotec 20 mg p.o. daily. 4. Colace 100 mg p.o. b.i.d. 5. Albuterol 2 puffs q.4 p.r.n. 6. Prednisone 30 mg p.o. daily. 7. Glucophage 1000 mg p.o. daily. 8. Revatio 20 mg p.o. daily. 9. Prilosec 20 mg before breakfast. 10.Naprosyn 500 mg p.o. b.i.d. 11.CellCept 1500 mg p.o. b.i.d. 12.Toprol XL 50 mg p.o. daily. 13.Lantus 50 units subcutaneously daily. 14.Symbicort 160/4.5 two puffs b.i.d. ALLERGIES: NONE. FAMILY HISTORY: History of cancer in the family. SOCIAL HISTORY: History of smoking and ongoing. Occasional alcohol intake. REVIEW OF SYSTEMS: ENT: No diminished hearing. No diminished vision. CARDIOVASCULAR SYSTEM: No angina, palpitations. RESPIRATORY SYSTEM: As mentioned earlier. GI: No nausea, vomiting. : No dysuria or retention. NERVOUS SYSTEM: As mentioned earlier. ALLERGY/IMMUNOLOGY: No asthma, hayfever. MUSCULOSKELETAL: As mentioned earlier. HEMATOLOGY/ONCOLOGY: No history of anemia. ENDOCRINE: As mentioned earlier. CONSTITUTIONAL: As mentioned earlier. DERMATOLOGY: Negative. RHEUMATOLOGY: Negative. PSYCHIATRY: As mentioned earlier. PHYSICAL EXAMINATION: Patient is alert, oriented x3. The pulse is 93, blood pressure 163/84, respirations 16, temperature 98 degrees, pulse ox 97% on room air. HEENT: Conjunctivae normal. Oral mucosa moist. NECK: No jugular venous distention. No carotid bruit. No lymph node enlargement. CARDIOVASCULAR SYSTEM: S1, S2 muffled. RESPIRATORY SYSTEM: Breath sounds diminished at the bases. Bilateral scattered rhonchi and crackles. Expiratory wheezing also present. ABDOMEN: Soft, non-tender. No mass palpable. LEGS: No edema. No swelling. NERVOUS SYSTEM: Mild diffuse weakness with some mild diffuse wasting also present. No sensory abnormalities. LYMPHATICS: No lymph node palpable in neck, axillae or groin. JOINTS: No active deforming arthropathy. LABS: WBC 25.9, hemoglobin 11.8 and MCV 69.4. INR is 1. Sodium 131, magnesium 1.3. ASSESSMENT: 1. Possible acute bilateral pneumonia gram-negative. 2. Pulmonary fibrosis. 3. Polymyositis, acute exacerbation. 4. Severe pain and gait dysfunction. 5. Increased white count. 6. Anemia, microcytic, possibly secondary to chronic disease. 7. Hyponatremia. 8. Increased random blood sugar. 9. Increased alkaline phosphatase. 10.Hypomagnesemia. 11.History of continued ongoing nicotine dependence. 12.History of diabetes mellitus, type 2. 13.Gastroesophageal reflux disease. 14.Hypertension. 15.History of degenerative joint disease. 16.History of pulmonary fibrosis. 17.History of appendectomy. 18.History hernia repair. 19.History of depression. RECOMMENDATIONS AND DISCUSSION: In this 63-year-old gentleman who presented with multiple complex medical issues, at this time I recommend to continue current management, continue symptomatic treatment. The patient is on broad-spectrum IV antibiotics. I would also recommend a course of IV steroids and also resume the home medications. I would recommend pulmonary consultation and continue to monitor. Smoking cessation. Overall prognosis is guarded because of multiple complex medical issues. Further recommendations to follow. Pain medications. A copy of this dictation is being forwarded to Dr. South, who is the primary physician. DANNIE / SERJIO: [id number] / MTDD
[2019-01-23 19:58] LABS: Glucose,Whole Blood 335 mg/dL (75-99)
[2019-01-23] MEDS: HEPARIN SODIUM,PORCINE 5,000 UNIT/ML 1 ML VIAL SQ SCH (20:51)
[2019-01-23] MEDS: HYDROmorphone 0.5 MG/0.5 ML SYRINGE IVP PRN (20:59)
[2019-01-23] MEDS ORDERED: LEVOFLOXACIN 750MG-D5W PMX 750 MG in DEXTROSE/WATER 1 150ML.BAG IVPB SCH (21:00)
[2019-01-23] MEDS: TEMAZEPAM 15 MG CAP PO PRN (22:32)
[2019-01-23 22:52] LABS: Glucose,Whole Blood 321 mg/dL (75-99)
[2019-01-24] MEDS: HYDROmorphone 0.5 MG/0.5 ML SYRINGE IVP PRN ×4 (00:19→23:40)
[2019-01-24] MEDS: methylPREDNISolone SOD SUCCI 125 MG/2 ML VIAL IV SCH ×5 (00:20→23:40)
[2019-01-24] MEDS: PIPERACILLIN-TAZOBACTAM 3.375 GM in SODIUM CHLORIDE 0.9% 100 ML IVPB SCH ×2 (00:20→17:08)
[2019-01-24] MEDS: SODIUM CHLORIDE 0.9% 1,000 ML IV SCH (02:23)
[2019-01-24 03:44] LABS: Anisocytosis Slight; HCT 37.1 % (39.0-53.0); HGB 11.2 gm/dL (13.0-17.5); Hypochromasia Marked; MCH 21.5 pg (25.0-35.0); MCHC 30.4 g/dL (31.0-37.0); MCV 70.7 fL (80.0-100.0); Mean Platelet Volume 6.2; Microcytosis Marked; Platelet Count 424 k/uL (150-450); RBC 5.24 m/uL (4.30-5.90); RDW 17.9 % (11.5-15.5); WBC 28.7 k/uL (3.8-10.6)
[2019-01-24] MEDS: ALBUTEROL NEBULIZED 2.5 MG/3 ML INHALATION SCH ×5 (03:53→19:33)
[2019-01-24 04:00] LABS: Anion Gap 9 mmol/L; Blood Urea Nitrogen 13 mg/dL (9-20); Calcium 9.2 mg/dL (8.4-10.2); Carbon Dioxide 24 mmol/L (22-30); Chloride 99 mmol/L (98-107); Glucose 226 mg/dL (74-99); Magnesium 1.6 mg/dL (1.6-2.3); Potassium 5.1 mmol/L (3.5-5.1); Sodium 132 mmol/L (137-145)
[2019-01-24] MEDS ORDERED: VANCOMYCIN TROUGH DUE 1 EACH MISC MISCELLANE ONE (04:00)
[2019-01-24 04:36] LABS: Band Neutrophils % 10 %; Eosinophils # (M) 0.86 k/uL (0-0.7); Large Platelets Present; Lymphocytes # (M) 1.44 k/uL (1.0-4.8); Monocytes # (M) 0.29 k/uL (0-1.0); Neutrophils % (M) 81 %; Nucleated Red Blood Cells 0 /100 WBC (0-0); Total Cells Counted 200
[2019-01-24] MEDS: HYDROcodone/APAP 5-325MG 1 EACH TAB PO PRN ×2 (05:45→20:59)
[2019-01-24] MEDS: VANCOMYCIN 1,750 MG in SODIUM CHLORIDE 0.9% 500 ML 500 ML IVPB SCH (05:45)
[2019-01-24 07:06] LABS: Glucose,Whole Blood 250 mg/dL (75-99)
[2019-01-24] MEDS ORDERED: NON-FORMULARY DRUG (Omeprazole 20 MG) PO SCH (07:30)
[2019-01-24] MEDS: SYMBICORT 160-4.5 MCG INHALER INHALATION SCH ×2 (07:36→19:25)
[2019-01-24] MEDS: INSULIN ASPART (NovoLOG) 100 UNIT/ML VIAL SQ SCH ×4 (09:26→22:27)
[2019-01-24] MEDS: INSULIN DETEMIR (LEVEMIR) 100 UNIT/ML SYR SQ SCH (09:26)
[2019-01-24] MEDS: HEPARIN SODIUM,PORCINE 5,000 UNIT/ML 1 ML VIAL SQ SCH ×2 (09:28→20:59)
[2019-01-24] MEDS: PANTOPRAZOLE 40 MG TABLET PO SCH (09:29)
[2019-01-24] MEDS: DOCUSATE 100 MG CAP PO SCH ×2 (09:29→21:00)
[2019-01-24] MEDS: METOPROLOL SUCCINATE (ER) 50 MG TAB.ER.24H PO SCH (09:29)
[2019-01-24] MEDS: metFORMIN 500 MG TAB PO SCH (09:29)
[2019-01-24] MEDS: glipiZIDE 10 MG TAB PO SCH (09:30)
[2019-01-24] MEDS: MYCOPHENOLATE MOFETIL 500 MG TAB PO SCH ×2 (10:33→20:59)
[2019-01-24] MEDS: LISINOPRIL 20 MG TAB PO SCH (10:34)
[2019-01-24] MEDS: NICOTINE 21MG/24HR PATCH TRANSDERM SCH (10:35)
[2019-01-24] MEDS: SILDENAFIL 20 MG TAB PO SCH (10:35)
[2019-01-24] MEDS: IRON AG/C/B12/CA/SUC.ACID/STOM 1 EACH TAB PO SCH (10:35)
[2019-01-24 11:40] LABS: Glucose,Whole Blood 262 mg/dL (75-99)
--- NOTE | 2019-01-24 13:32 | P.PN ---
Subjective Progress Note Date: 01/24/19 Principal diagnosis: Acute on chronic pain secondary to polymyositis This is a very pleasant 63-year-old male patient who follows with Dr. South as his primary care physician. He has a history of diabetes mellitus, gastroesophageal reflux disease, hypertension. He was diagnosed with polymyositis via left thigh muscle biopsy approximately 7 months ago and has been on CellCept and prednisone. A chest x-ray from July 2018 revealed persistent multifocal opacities similar in comparison to an exam of 07/17/2018. Computed tomography scan from that time also revealed low lung volumes with lower lung fibrosis most prominent near diaphragms and areas of acute infiltrate or consolidation more difficult to exclude based on these findings. He was sent to Dr. Livingston in our office in September 2018 for the pulmonary fibrotic changes. Pulmonary function testing revealed both obstructive changes with an FEV1 value 65% of predicted as well as restrictive changes due to muscle weakness. 6 minute walk did not reveal any significant desaturations less than 88%. He was initiated on Symbicort and albuterol for the COPD. Lung biopsy was recommended as well however the patient wanted to hold off. He is due to see him again in 02/10/2019. The patient presented here yesterday with complaints of insomnia over the past several months. He also has chronic and ongoing issues with pain. He states approximately 3 weeks ago his CellCept was increased to 1500 mg twice a day and his prednisone was decreased from 30 mg daily to 30 mg alternating with 25 mg daily. Since that time he has had progressive weakness. He increase his prednisone back to 30 mg a day without any significant improvement. They're following his CK levels in the outpatient setting. His chest x-ray here revealed questionable multifocal pneumonia with a trace left pleural effusion. The patient really has no pulmonary complaints. No worsening shortness of breath, cough or congestion. No fever chills or night sweats. He is maintaining O2 saturations in the mid to upper 90s on room air. He's been afebrile. Slightly hypertensive. White count 25.9. Neutrophils 14.5. Sodium 131. Potassium 4.5. Chloride 97. Creatinine 0.77. Total creatinine kinase 36. C-reactive protein 54.9. Troponin negative. Influenza screen negative. The patient was initiated on vancomycin, Levaquin, Zosyn. Currently on Symbicort and bronchodilators. The patient is seen today 01/24/2019 in follow-up on the regular medical floor. He is awake and alert in no acute distress. He is feeling better today as compared to yesterday. His pain is better controlled. He is no pulmonary complaints today. He continues to maintain good O2 saturations in the 90s on room air. He's been afebrile. White count 28.7. Hemoglobin 11.2. Creatinine 0.72. He remains on bronchodilators, Symbicort, empiric antibiotics in the form of Levaquin. NicoDerm patch is in place. Objective - Vital Signs Vital signs: Vital Signs Temp 97.6 F 01/24/19 08:25 Pulse 92 01/24/19 08:25 Resp 16 01/23/19 23:58 BP 156/79 01/24/19 08:25 Pulse Ox 92 L 01/24/19 08:25 Intake & Output 01/23/19 01/24/19 01/24/19 18:59 06:59 18:59 Intake Total 320 Balance 320 Weight 115.666 kg Intake: Intake, IV Titration 320 Amount Sodium Chloride 0.9% 1, 320 000 ml @ 40 mls/hr IV . Q24H [facility] Rx#:[id number] Other: Voiding Method Toilet Toilet # Voids 1 - Exam GENERAL EXAM: Pleasant 63 year old gentleman. Alert, fairly comfortable in no apparent distress. On room air. HEAD: Normocephalic. EYES: Normal reaction of pupils, equal size. NOSE: Clear with pink turbinates. THROAT: No erythema or exudates. NECK: No masses, no JVD. CHEST: No chest wall deformity. LUNGS: Equal air entry with few scattered rhonchi, diminished CVS: S1 and S2 normal with no audible murmur, regular rhythm. ABDOMEN: No hepatosplenomegaly, normal bowel sounds, no guarding or rigidity. SPINE: No scoliosis or deformity SKIN: No rashes CENTRAL NERVOUS SYSTEM: No focal deficits, tone is normal in all 4 extremities. Complains of progressive weakness. EXTREMITIES: There is no peripheral edema. No clubbing, no cyanosis. Peripheral pulses are intact. - Labs CBC & Chem 7: 01/24/19 03:31 01/24/19 03:31 Labs: Abnormal Lab Results - Last 24 Hours (Table) 01/23/19 01/23/19 01/23/19 Range/Units 17:14 19:47 22:37 WBC (3.8-10.6) k/uL Hgb (13.0-17.5) gm/dL Hct (39.0-53.0) % MCV (80.0-100.0) fL MCH (25.0-35.0) pg MCHC (31.0-37.0) g/dL RDW (11.5-15.5) % Neutrophils # (Manual) (1.3-7.7) k/uL Eosinophils # (Manual) (0-0.7) k/uL Sodium (137-145) mmol/L Glucose (74-99) mg/dL POC Glucose (mg/dL) 180 H 335 H 321 H (75-99) mg/dL 01/24/19 01/24/19 01/24/19 Range/Units 03:31 03:31 07:04 WBC 28.7 H (3.8-10.6) k/uL Hgb 11.2 L (13.0-17.5) gm/dL Hct 37.1 L (39.0-53.0) % MCV 70.7 L (80.0-100.0) fL MCH 21.5 L (25.0-35.0) pg MCHC 30.4 L (31.0-37.0) g/dL RDW 17.9 H (11.5-15.5) % Neutrophils # (Manual) 26.10 H (1.3-7.7) k/uL Eosinophils # (Manual) 0.86 H (0-0.7) k/uL Sodium 132 L (137-145) mmol/L Glucose 226 H (74-99) mg/dL POC Glucose (mg/dL) 250 H (75-99) mg/dL 01/24/19 Range/Units 11:38 WBC (3.8-10.6) k/uL Hgb (13.0-17.5) gm/dL Hct (39.0-53.0) % MCV (80.0-100.0) fL MCH (25.0-35.0) pg MCHC (31.0-37.0) g/dL RDW (11.5-15.5) % Neutrophils # (Manual) (1.3-7.7) k/uL Eosinophils # (Manual) (0-0.7) k/uL Sodium (137-145) mmol/L Glucose (74-99) mg/dL POC Glucose (mg/dL) 262 H (75-99) mg/dL Microbiology - Last 24 Hours (Table) 01/22/19 15:45 Blood Culture - Preliminary Blood No Growth after 24 hours 01/22/19 17:09 Urine Culture - Final Urine,Voided Assessment and Plan Assessment: Impression: #1 Progressive pain and weakness secondary to polymyositis, biopsy proven. On CellCept and prednisone. #2 Insomnia suspect secondary to prednisone. #3 Dyspnea on exertion secondary to progressive weakness, chronic tobacco dependence, pulmonary fibrosis, COPD. #4 Pulmonary fibrosis may need open lung biopsy at some point. #5 Chronic obstructive pulmonary disease, currently inactive and stable. #6 Chronic tobacco dependence. 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 #8 Diabetes mellitus. #9 Hypertension. Plan: The patient was seen and evaluated by Dr. Negron. The patient is stable from the pulmonary standpoint. We'll keep the patient on Levaquin. Continue his COPD medications. He did mention probably needing open lung biopsy. The patient is planning to be seen at the [facility] and will keep that appointment. We'll continue to follow and make further recommendations based on his clinical status. I, the cosigning physician, performed a history & physical examination of the patient. Lungs sounds crackles in the bilateral posterior bases. Maintaining good O2 saturations in the 90s on room air. I discussed the assessment and plan of care with my nurse practitioner, Griselda Yeh. I attest to the above consultation as dictated by her.
[2019-01-24] MEDS ORDERED: CALCIUM CARBONATE 500 MG CHEWABLE PO PRN (15:23)
[2019-01-24 16:30] LABS: Glucose,Whole Blood 274 mg/dL (75-99)
[2019-01-24 20:59] LABS: Glucose,Whole Blood 453 mg/dL (75-99)
[2019-01-24] MEDS: LEVOFLOXACIN 750 MG TAB PO SCH (21:00)
--- NOTE | 2019-01-24 23:15 | PN ---
PROGRESS NOTE DATE OF SERVICE: 01/24/2019 This 63-year-old gentleman who was admitted with possible acute bilateral pneumonia which was gram-negative, also had features of pulmonary fibrosis. The patient is being closely monitored. No chest pain. No palpitations. No fever. The patient has also had multiple medications for polymyositis, also to be evaluated in the [facility]. EXAM: Alert and oriented x2. Pulse is 98, blood pressure 140/56, respiration 20, temperature 98.2, pulse ox 94% on room air. HEENT: Conjunctivae clear. NECK: No JVD. CARDIAC: S1, S2 muffled. LUNGS: Diminished breath sounds in the bases. A few scattered rhonchi, no crackles. ABDOMEN: Soft, nontender. LEGS: No edema, no swelling. LAB STUDIES: 28.2, hemoglobin 11.2. Glucose noted. ASSESSMENT: 1. Acute bilateral pneumonia possibly gram-negative. 2. Pulmonary fibrosis. 3. Polymyositis, acute exacerbation. 4. Chronic obstructive pulmonary disease. 5. Gait dysfunction. 6. Increased WBC. 7. Anemia, microcytic, possibly secondary to chronic disease. 8. Hyponatremia. 9. Increased random blood sugar. 10.Increased alkaline phosphatase. 11.Hypomagnesemia. 12.History of continued ongoing nicotine dependence. 13.History of diabetes mellitus type 2. 14.Gastroesophageal reflux disease. 15.Hypertension. 16.History of degenerative joint disease. 17.History of pulmonary fibrosis. 18.History of appendectomy. 19.History of hernia repair. 20.History of depression is. The patient has also had multiple medication body mass is also to be evaluated in an any next admission. CURRENT MEDICATIONS ARE: 1. Tylenol 500 mg Q6 p.r.n. pain. 2. [place] 5 mg p.r.n. 3. Ventolin p.r.n. 4. DuoNeb q.i.d. and p.r.n. 5. Xanax. 6. Symbicort. 7. TUMS. 8. Glucotrol 10 mg. 9. Heparin 5 subcu b.i.d. 10.Levemir 15 units subcu daily. 11.Multigen 2 daily. 12.Levaquin 750 p.o. daily. 13.Zestril 40 mg daily. 14.Glucophage. 15.Solu-Medrol 60 IV q.6h. 16.CellCept. 17.Naprosyn. 18.Habitrol. 19.Protonix. 20.Revatio. 21.Restoril. RECOMMENDATIONS AND DISCUSSION: In this 63-year-old gentleman who presented with multiple medical issues, we will monitor the patient closely, continue the current management and symptomatic treatment. I would recommend to continue the current medications including IV steroids, continue the pain medication and other symptomatic treatment. Prognosis guarded because of multiple complex medical issues. The patient possibly could have exacerbation of the polymyositis, pulmonary fibrosis syndrome. Further recommendations to follow. MMODL / IJN: [id number] /
[2019-01-25] MEDS: TEMAZEPAM 15 MG CAP PO PRN (00:02)
[2019-01-25] MEDS: ALBUTEROL NEBULIZED 2.5 MG/3 ML INHALATION SCH ×7 (00:08→23:58)
[2019-01-25 03:01] VITALS: RESP 16
[2019-01-25] MEDS: SODIUM CHLORIDE 0.9% 1,000 ML IV SCH (03:06)
[2019-01-25] MEDS: HYDROcodone/APAP 5-325MG 1 EACH TAB PO PRN ×3 (03:18→18:25)
[2019-01-25] MEDS: methylPREDNISolone SOD SUCCI 125 MG/2 ML VIAL IV SCH ×2 (05:39→13:23)
[2019-01-25] MEDS: HYDROmorphone 0.5 MG/0.5 ML SYRINGE IVP PRN ×2 (05:40→13:24)
[2019-01-25 06:59] LABS: Glucose,Whole Blood 225 mg/dL (75-99)
[2019-01-25] MEDS: SYMBICORT 160-4.5 MCG INHALER INHALATION SCH ×2 (07:44→20:11)
[2019-01-25 08:07] LABS: Anisocytosis Slight; Basophils # (A) 0.1 k/uL (0-0.2); Basophils % (A) 0 %; Eosinophils # (A) 0.2 k/uL (0-0.7); Eosinophils % (A) 1 %; HCT 31.3 % (39.0-53.0); Hypochromasia Slight; Lymphocytes # (A) 1.2 k/uL (1.0-4.8); Lymphocytes % (A) 5 %; MCH 21.2 pg (25.0-35.0); MCHC 30.7 g/dL (31.0-37.0); MCV 69.1 fL (80.0-100.0); Mean Platelet Volume 6.7; Microcytosis Marked; Monocytes # (A) 1.3 k/uL (0-1.0); Monocytes % (A) 5 %; Neutrophils # (A) 20.6 k/uL (1.3-7.7); Neutrophils % (A) 88 %; Platelet Count 404 k/uL (150-450); RBC 4.53 m/uL (4.30-5.90); RDW 17.9 % (11.5-15.5); WBC 23.4 k/uL (3.8-10.6)
[2019-01-25 08:13] LABS: HGB 9.6 gm/dL (13.0-17.5)
[2019-01-25 08:33] LABS: Anion Gap 9 mmol/L; Blood Urea Nitrogen 21 mg/dL (9-20); Calcium 9.4 mg/dL (8.4-10.2); Carbon Dioxide 23 mmol/L (22-30); Chloride 99 mmol/L (98-107); Glucose 204 mg/dL (74-99); Magnesium 1.6 mg/dL (1.6-2.3); Potassium 5.1 mmol/L (3.5-5.1); Sodium 131 mmol/L (137-145)
[2019-01-25] MEDS: INSULIN DETEMIR (LEVEMIR) 100 UNIT/ML SYR SQ SCH (11:02)
[2019-01-25] MEDS: PANTOPRAZOLE 40 MG TABLET PO SCH (11:03)
[2019-01-25] MEDS: HEPARIN SODIUM,PORCINE 5,000 UNIT/ML 1 ML VIAL SQ SCH ×2 (11:03→22:04)
[2019-01-25] MEDS: metFORMIN 500 MG TAB PO SCH (11:03)
[2019-01-25] MEDS: LISINOPRIL 20 MG TAB PO SCH (11:04)
[2019-01-25] MEDS: glipiZIDE 10 MG TAB PO SCH (11:04)
[2019-01-25] MEDS: DOCUSATE 100 MG CAP PO SCH ×2 (11:04→22:04)
[2019-01-25] MEDS: METOPROLOL SUCCINATE (ER) 50 MG TAB.ER.24H PO SCH (11:04)
[2019-01-25] MEDS: IRON AG/C/B12/CA/SUC.ACID/STOM 1 EACH TAB PO SCH (11:05)
[2019-01-25] MEDS: SILDENAFIL 20 MG TAB PO SCH (11:05)
[2019-01-25] MEDS: NICOTINE 21MG/24HR PATCH TRANSDERM SCH (11:06)
[2019-01-25] MEDS: MYCOPHENOLATE MOFETIL 500 MG TAB PO SCH (11:06)
[2019-01-25 11:18] LABS: Glucose,Whole Blood 325 mg/dL (75-99)
[2019-01-25] MEDS: ACETAMINOPHEN TAB 500 MG TAB PO PRN ×2 (11:29→18:26)
[2019-01-25] MEDS: INSULIN ASPART (NovoLOG) 100 UNIT/ML VIAL SQ SCH ×5 (11:31→22:05)
--- NOTE | 2019-01-25 13:45 | P.PN ---
Subjective Progress Note Date: 01/25/19 Principal diagnosis: Acute on chronic pain secondary to polymyositis This is a very pleasant 63-year-old male patient who follows with Dr. South as his primary care physician. He has a history of diabetes mellitus, gastroesophageal reflux disease, hypertension. He was diagnosed with polymyositis via left thigh muscle biopsy approximately 7 months ago and has been on CellCept and prednisone. A chest x-ray from July 2018 revealed persistent multifocal opacities similar in comparison to an exam of 07/17/2018. Computed tomography scan from that time also revealed low lung volumes with lower lung fibrosis most prominent near diaphragms and areas of acute infiltrate or consolidation more difficult to exclude based on these findings. He was sent to Dr. Livingston in our office in September 2018 for the pulmonary fibrotic changes. Pulmonary function testing revealed both obstructive changes with an FEV1 value 65% of predicted as well as restrictive changes due to muscle weakness. 6 minute walk did not reveal any significant desaturations less than 88%. He was initiated on Symbicort and albuterol for the COPD. Lung biopsy was recommended as well however the patient wanted to hold off. He is due to see him again in 02/10/2019. The patient presented here yesterday with complaints of insomnia over the past several months. He also has chronic and ongoing issues with pain. He states approximately 3 weeks ago his CellCept was increased to 1500 mg twice a day and his prednisone was decreased from 30 mg daily to 30 mg alternating with 25 mg daily. Since that time he has had progressive weakness. He increase his prednisone back to 30 mg a day without any significant improvement. They're following his CK levels in the outpatient setting. His chest x-ray here revealed questionable multifocal pneumonia with a trace left pleural effusion. The patient really has no pulmonary complaints. No worsening shortness of breath, cough or congestion. No fever chills or night sweats. He is maintaining O2 saturations in the mid to upper 90s on room air. He's been afebrile. Slightly hypertensive. White count 25.9. Neutrophils 14.5. Sodium 131. Potassium 4.5. Chloride 97. Creatinine 0.77. Total creatinine kinase 36. C-reactive protein 54.9. Troponin negative. Influenza screen negative. The patient was initiated on vancomycin, Levaquin, Zosyn. Currently on Symbicort and bronchodilators. The patient is seen today 01/24/2019 in follow-up on the regular medical floor. He is awake and alert in no acute distress. He is feeling better today as compared to yesterday. His pain is better controlled. He is no pulmonary complaints today. He continues to maintain good O2 saturations in the 90s on room air. He's been afebrile. White count 28.7. Hemoglobin 11.2. Creatinine 0.72. He remains on bronchodilators, Symbicort, empiric antibiotics in the form of Levaquin. NicoDerm patch is in place. The patient seen today 01/25/2019 in follow-up on the regular medical floor. He is currently resting comfortably in bed. Awake and alert in no acute distress. On room air. Blood and urine cultures reveal no growth. White count 23. He moglobin 9.6. Creatinine 0.62. He remains on DuoNeb inhalations, Symbicort inhalations, IV Solu-Medrol and Levaquin. NicoDerm patch is in place. Objective - Vital Signs Vital signs: Vital Signs Temp 97.6 F 01/25/19 10:00 Pulse 102 H 01/25/19 10:00 Resp 16 01/25/19 10:00 BP 148/83 01/25/19 10:00 Pulse Ox 96 01/25/19 10:00 Intake & Output 01/24/19 01/25/19 01/25/19 18:59 06:59 18:59 Intake Total 1630 Balance 1630 Intake: Intake, IV Titration 480 Amount Sodium Chloride 0.9% 1, 480 000 ml @ 40 mls/hr IV . Q24H [facility] Rx#:[id number] Oral 1150 Other: Voiding Method Toilet # Voids 3 2 - Exam GENERAL EXAM: Pleasant 63 year old gentleman. Alert, fairly comfortable in no apparent distress. On room air. HEAD: Normocephalic. EYES: Normal reaction of pupils, equal size. NOSE: Clear with pink turbinates. THROAT: No erythema or exudates. NECK: No masses, no JVD. CHEST: No chest wall deformity. LUNGS: Equal air entry bilaterally clear. CVS: S1 and S2 normal with no audible murmur, regular rhythm. ABDOMEN: No hepatosplenomegaly, normal bowel sounds, no guarding or rigidity. SPINE: No scoliosis or deformity SKIN: No rashes CENTRAL NERVOUS SYSTEM: No focal deficits, tone is normal in all 4 extremities. Complains of progressive weakness. EXTREMITIES: There is no peripheral edema. No clubbing, no cyanosis. Peripheral pulses are intact. - Labs CBC & Chem 7: 01/25/19 07:08 01/25/19 07:08 Labs: Abnormal Lab Results - Last 24 Hours (Table) 01/24/19 01/24/19 01/25/19 Range/Units 16:29 20:58 06:58 WBC (3.8-10.6) k/uL Hgb (13.0-17.5) gm/dL Hct (39.0-53.0) % MCV (80.0-100.0) fL MCH (25.0-35.0) pg MCHC (31.0-37.0) g/dL RDW (11.5-15.5) % Neutrophils # (1.3-7.7) k/uL Monocytes # (0-1.0) k/uL Sodium (137-145) mmol/L BUN (9-20) mg/dL Creatinine (0.66-1.25) mg/dL Glucose (74-99) mg/dL POC Glucose (mg/dL) 274 H 453 H 225 H (75-99) mg/dL 01/25/19 01/25/19 01/25/19 Range/Units 07:08 07:08 11:17 WBC 23.4 H (3.8-10.6) k/uL Hgb 9.6 L D (13.0-17.5) gm/dL Hct 31.3 L (39.0-53.0) % MCV 69.1 L (80.0-100.0) fL MCH 21.2 L (25.0-35.0) pg MCHC 30.7 L (31.0-37.0) g/dL RDW 17.9 H (11.5-15.5) % Neutrophils # 20.6 H (1.3-7.7) k/uL Monocytes # 1.3 H (0-1.0) k/uL Sodium 131 L (137-145) mmol/L BUN 21 H (9-20) mg/dL Creatinine 0.62 L (0.66-1.25) mg/dL Glucose 204 H (74-99) mg/dL POC Glucose (mg/dL) 325 H (75-99) mg/dL Microbiology - Last 24 Hours (Table) 01/22/19 15:45 Blood Culture - Preliminary Blood No Growth after 48 hours Assessment and Plan Assessment: Impression: #1 Progressive pain and weakness secondary to polymyositis, biopsy proven. On CellCept and prednisone. #2 Insomnia suspect secondary to prednisone. #3 Dyspnea on exertion secondary to progressive weakness, chronic tobacco dependence, pulmonary fibrosis, COPD. #4 Pulmonary fibrosis may need open lung biopsy at some point. #5 Chronic obstructive pulmonary disease, currently inactive and stable. #6 Chronic tobacco dependence. 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 #8 Diabetes mellitus. #9 Hypertension. Plan: The patient was seen and evaluated by Dr. Negron. The patient is stable from the pulmonary standpoint. Titrate down the steroids. Continue his COPD medications. He did mention probably needing open lung biopsy. The patient is planning to be seen at the [facility] and will keep that appointment. We'll continue to follow and make further recommendations based on his clinical status. I, the cosigning physician, performed a history & physical examination of the patient. Lungs sounds crackles in the bilateral posterior bases. Maintaining good O2 saturations in the 90s on room air. I discussed the assessment and plan of care with my nurse practitioner, Griselda Yeh. I attest to the above consu ltation as dictated by her.
[2019-01-25 16:49] LABS: Glucose,Whole Blood 172 mg/dL (75-99)
[2019-01-25] MEDS ORDERED: INSULIN ASPART (NovoLOG) 100 UNIT/ML VIAL SQ SCH (17:30)
[2019-01-25] MEDS: methylPREDNISolone SOD SUCCI 40 MG/ML 1 ML VIAL IV SCH (18:25)
[2019-01-25] MEDS: MAGNESIUM SULFATE-D5W PMX 1 GM in DEXTROSE/WATER 1 100ML.BAG IVPB SCH ×2 (18:26→19:53)
[2019-01-25 20:03] LABS: Glucose,Whole Blood 267 mg/dL (75-99)
[2019-01-25] MEDS: LEVOFLOXACIN 750 MG TAB PO SCH (22:04)
--- NOTE | 2019-01-25 23:28 | PN ---
PROGRESS NOTE DATE OF SERVICE: 01/25/2019. HISTORY: This 63-year-old gentleman who was admitted with acute bilateral pneumonia possibly gram-negative, also had pulmonary fibrosis. The patient also had polymyositis. The patient is improving significantly with intravenous steroids which have been tapered at this time. No chest pain. No palpitations. No fever. EXAM: Alert and oriented x3. Pulse 90, blood pressure 175/90, respirations 16, temperature 97.2, pulse ox 98% on room air. HEENT: Conjunctivae normal. Oral mucosa moist. NECK: No JVD. CARDIOVASCULAR: S1 and S2 muffled. LUNGS: Breath sounds diminished in the bases. Few scattered rhonchi and crackles. ABDOMEN: Abdomen is soft, nontender. EXTREMITIES: Legs no edema. NERVOUS SYSTEM: Diffusely weak. LABS: WBC 23.1, hemoglobin 9.6, sodium 131. Other labs are noted. ASSESSMENT: 1. Acute bilateral pneumonia possibly gram-negative. 2. Pulmonary fibrosis. 3. Possible polymyositis, acute exacerbation. 4. Chronic obstructive pulmonary disease. 5. Gait dysfunction. 6. Increased WBC. 7. Anemia microcytic possibly secondary to chronic disease. 8. Hyponatremia. 9. Increased random blood sugar. 10.Increased alkaline phosphatase. 11.Hypomagnesemia. 12.History of continued ongoing nicotine dependence. 13.History of diabetes type 2. 14.Gastroesophageal reflux disease. 15.Hypertension. 16.History of DJD. 17.History of pulmonary fibrosis. 18.History of appendectomy. 19.History of hernia repair. 20.History of depression. RECOMMENDATIONS AND DISCUSSION: Recommend to continue current management and symptomatic treatment. Taper dose of steroids. Otherwise increase ambulation. The patient apparently had an appointment in Rhe[facility]ology Clinic at [facility] on the of this month. Recommend earlier appointment and continue to monitor. Discussed with the family. Further recommendations to follow. MMODL / IJN: [id number] /
[2019-01-26] MEDS: methylPREDNISolone SOD SUCCI 40 MG/ML 1 ML VIAL IV SCH ×2 (00:14→08:07)
[2019-01-26] MEDS: HYDROcodone/APAP 5-325MG 1 EACH TAB PO PRN ×3 (00:23→15:49)
[2019-01-26] MEDS: ACETAMINOPHEN TAB 500 MG TAB PO PRN (00:23)
[2019-01-26] MEDS: MYCOPHENOLATE MOFETIL 500 MG TAB PO SCH ×2 (00:35→10:29)
[2019-01-26] MEDS: TEMAZEPAM 15 MG CAP PO PRN (01:51)
[2019-01-26] MEDS: SODIUM CHLORIDE 0.9% 1,000 ML IV SCH (01:54)
[2019-01-26] MEDS: ALBUTEROL NEBULIZED 2.5 MG/3 ML INHALATION SCH ×3 (03:18→13:11)
[2019-01-26 07:05] LABS: Glucose,Whole Blood 135 mg/dL (75-99)
[2019-01-26] MEDS: LISINOPRIL 20 MG TAB PO SCH (08:05)
[2019-01-26] MEDS: metFORMIN 500 MG TAB PO SCH (08:05)
[2019-01-26] MEDS: glipiZIDE 10 MG TAB PO SCH (08:05)
[2019-01-26] MEDS: METOPROLOL SUCCINATE (ER) 50 MG TAB.ER.24H PO SCH (08:05)
[2019-01-26] MEDS: IRON AG/C/B12/CA/SUC.ACID/STOM 1 EACH TAB PO SCH (08:05)
[2019-01-26] MEDS: SILDENAFIL 20 MG TAB PO SCH (08:06)
[2019-01-26] MEDS: PANTOPRAZOLE 40 MG TABLET PO SCH (08:06)
[2019-01-26] MEDS: HEPARIN SODIUM,PORCINE 5,000 UNIT/ML 1 ML VIAL SQ SCH (08:07)
[2019-01-26] MEDS: DOCUSATE 100 MG CAP PO SCH (08:07)
[2019-01-26] MEDS: INSULIN ASPART (NovoLOG) 100 UNIT/ML VIAL SQ SCH ×4 (08:08→14:32)
[2019-01-26] MEDS: NICOTINE 21MG/24HR PATCH TRANSDERM SCH (08:09)
[2019-01-26 08:36] VITALS: BP 164/82; PULSE 75; TEMP 98.2
[2019-01-26 09:14] LABS: Anisocytosis Slight; HCT 34.9 % (39.0-53.0); HGB 10.4 gm/dL (13.0-17.5); Hypochromasia Moderate; MCH 20.8 pg (25.0-35.0); MCHC 29.7 g/dL (31.0-37.0); MCV 69.9 fL (80.0-100.0); Microcytosis Marked; Platelet Count 438 k/uL (150-450); RBC 4.99 m/uL (4.30-5.90); RDW 17.9 % (11.5-15.5); WBC 29.2 k/uL (3.8-10.6)
[2019-01-26] MEDS: SYMBICORT 160-4.5 MCG INHALER INHALATION SCH (09:30)
[2019-01-26 10:02] LABS: Anion Gap 9 mmol/L; Blood Urea Nitrogen 26 mg/dL (9-20); Calcium 9.4 mg/dL (8.4-10.2); Carbon Dioxide 26 mmol/L (22-30); Chloride 98 mmol/L (98-107); Glucose 98 mg/dL (74-99); Magnesium 1.9 mg/dL (1.6-2.3); Potassium 4.7 mmol/L (3.5-5.1); Sodium 133 mmol/L (137-145)
[2019-01-26] MEDS: INSULIN DETEMIR (LEVEMIR) 100 UNIT/ML SYR SQ SCH (10:29)
[2019-01-26 10:34] LABS: Band Neutrophils % 4 %; Eosinophils # (M) 0.29 k/uL (0-0.7); Lymphocytes # (M) 1.75 k/uL (1.0-4.8); Metamyelocytes # (M) 0.29 k/uL (0); Metamyelocytes % 1 %; Monocytes # (M) 2.34 k/uL (0-1.0); Myelocytes # (M) 0.58 k/uL (0); Myelocytes % 2 %; Neutrophils % (M) 80 %; Nucleated Red Blood Cells 0 /100 WBC (0-0); Total Cells Counted 200
[2019-01-26 10:35] LABS: Poikilocytosis (M) Present
[2019-01-26 11:12] LABS: Hemoglobin A1C 11.3 % (4.0-6.0)
[2019-01-26] MEDS ORDERED: MAGNESIUM SULFATE-D5W PMX 1 GM in DEXTROSE/WATER 1 100ML.BAG IVPB ONE ×2 (11:38→13:30)
[2019-01-26 11:53] LABS: Glucose,Whole Blood 120 mg/dL (75-99)
[2019-01-26 14:43] LABS: Glucose,Whole Blood 162 mg/dL (75-99)
--- NOTE | 2019-01-26 16:33 | PN ---
PROGRESS NOTE This patient is a 63-year-old gentleman with a history of polymyositis. It is biopsy- proven. He is maintained on CellCept and prednisone for that. He apparently came into the hospital with complaints of shortness of breath and progressive weakness. The patient may have some underlying interstitial lung disease secondary to his connective tissue disease. He is apparently going to be evaluated at [facility] and may benefit from a lung biopsy. 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 Anyway, the patient is doing a bit better today. He complains about having significant insomnia, probably related to his underlying prednisone use. Anyway, from the pulmonary standpoint the patient is doing relatively well. Not requiring any oxygen. Denies any cough or phlegm production. Denies any fever or chills. Not having any hemoptysis. Current vital signs are reviewed. Temperature 98.2, heart rate 75, respiratory rate 16, blood pressure 164/82, mean 109, room-air saturation 96%. He appears in no acute distress. HEENT examination is grossly unremarkable. Mucous membranes are moist. No oral lesions. NECK: Supple. Full range of motion. No adenopathy or thyromegaly. Cardiovascular examination reveals regular rhythm and rate. S1, S2 normal. Heart sounds are distant. LUNGS: Bibasilar mild crackles. He is not restricted in his breathing. His crackles are Velcro in nature. No rhonchi or wheezes. ABDOMEN: Soft. Bowel sounds are heard. Extremities are intact. No cyanosis, clubbing or edema. Skin without rash. Neurologic examination is brief but nonfocal. Labs are reviewed. White count 29.2, hemoglobin 10.4, hematocrit 34.9, platelet count 438,000. Sodium 133, potassium 4.7, chloride 98. CO2 is 26, anion gap 9. BUN and creatinine were 26 and 0.72. A chest x-ray done on January 23 shows left perihilar and left basilar airspace disease. These changes are improved. ASSESSMENT: 1. Polymyositis, currently being treated with CellCept and prednisone. 2. Prednisone-induced insomnia. 3. Shortness of breath, multifactorial, in part related to underlying weakness from the patient's polymyositis as well as chronic tobacco dependence/chronic obstructive pulmonary disease and possibly underlying pulmonary fibrosis as a manifestation of his connective tissue disease. 4. Mild interstitial lung disease, with possible lung biopsy needed in the future. 5. Probable chronic obstructive pulmonary disease from chronic tobacco dependence. 6. Diabetes mellitus. 7. History of hypertension. PLAN: From our perspective, the patient is doing reasonably well. We will continue to follow closely. The patient's steroids should be titrated down. Additional recommendations and suggestions forthcoming. Follow up at [facility]. He may need a video- assisted thoracoscopic lung biopsy. Will continue to follow. Medications, labs and x- rays are all reviewed. MMODL / IJN: [id number] /
--- NOTE | 2019-01-26 22:44 | DS ---
DISCHARGE SUMMARY FINAL DIAGNOSES: 1. Acute bilateral pneumonia possibly gram-negative. 2. Pulmonary fibrosis. 3. Possible polymyositis, acute exacerbation. 4. Chronic obstructive pulmonary disease. 5. Gait dysfunction. 6. Increased WBC. 7. Anemia microcytic possibly secondary to chronic disease. 8. Hyponatremia. 9. Increased random blood sugar. 10.Increased alkaline phosphatase at this time, hypomagnesemia. 11.History of continued ongoing nicotine dependence. 12.History of diabetes type 2. 13.Gastroesophageal reflux disease. 14.History of hypertension. 15.History of degenerative joint disease. 16.History of pulmonary fibrosis. 17.History of appendectomy. 18.History of hernia repair. 19.History of depression. DISCHARGE DISPOSITION: The patient will be discharged in stable condition with guarded prognosis. Total time taken 31 minutes. HISTORY OF PRESENT ILLNESS: This 63-year-old gentleman with a past medical history of multiple medical problems, as mentioned earlier, being followed by Dr. South in the outpatient setting, had features of possible pneumonia and as well as severe weakness and pain. The patient was treated with IV steroids. Patient improved significant. Polymyositis, acute exacerbation, also considered. The patient apparently had an appointment in the [facility] rheumatology in the coming weeks. On exam vitals are stable. Cardiovascular S1, S2. Abdomen soft. Nervous system: No focal deficits. The patient improved significantly. Please note the patient has severe pain and diffuse generalized aches and pains also. DISCHARGE ADVICE AND MEDICATIONS: 1. Discharge diet is cardiac diet. 2. Activity limited until follow up. 3. Follow with Dr. South in 1-2 days. 4. Follow up with [facility] as mentioned earlier. MEDICATIONS: 1. CellCept 1500 mg p.o. b.i.d. 2. Glucophage 1000 mg p.o. daily. 3. Glucotrol 10 mg p.o. daily. 4. Lantus 50 units subcu daily. 5. Multigen 2 tabs daily. 6. Naprosyn p.r.n. 7. Prilosec 20 mg a.c. breakfast. 8. Revatio 20 mg p.o. daily. 9. Symbicort 160/4.5 two puffs b.i.d. 10.Toprol-XL 50 mg p.o. daily. 11.Vasotec 10 mg p.o. daily. 12.HFA 2 puffs q.4 p.r.n. 13.Colace 100 mg p.o. b.i.d. 14.Habitrol 21 daily. 15.Levaquin 750 mg daily for 3 days. 16.[place] 5 mg q.6h p.r.n. 17.NovoLog 5 units a.c. t.i.d. hold if Accu-Chek less than 120. 18.Prednisone 60 mg daily for 1 week, then 50 mg daily for 1 week and 40 mg daily for make and further tapering per [facility]. 19.Restoril 15 mg q.h.s. p.r.n. 20.Tylenol 500 mg q.8h p.r.n. Please send a copy to Dr. South. Once again, the patient is being discharged in stable condition with guarded prognosis. MMEVELYNEL / GOODN: [id number] /
[2019-01-27] MEDS ORDERED: predniSONE 20 MG TAB PO SCH (09:00)
== END 2019-01-26 18:52 | disposition home or self-care (01) | DRG 178 ==
LOC: EC 15:05 → 4SSUR 19:33
PROVIDERS: ADMIT Hospitalist; ATTEND Hospitalist
DX: J15.6 Pneumonia due to other Gram-negative bacteria (principal); E87.1 Hypo-osmolality and hyponatremia; J44.0 Chronic obstructive pulmonary disease with (acute) lower respiratory infection; M33.21 Polymyositis with respiratory involvement; M33.22 Polymyositis with myopathy; F17.210 Nicotine dependence, cigarettes, uncomplicated; D50.9 Iron deficiency anemia, unspecified; D63.8 Anemia in other chronic diseases classified elsewhere; E83.42 Hypomagnesemia; G47.00 Insomnia, unspecified; G89.29 Other chronic pain; I10 Essential (primary) hypertension; J84.10 Pulmonary fibrosis, unspecified; K21.9 Gastro-esophageal reflux disease without esophagitis; T38.0X5A Adverse effect of glucocorticoids and synthetic analogues, initial encounter; Z79.4 Long term (current) use of insulin; Z79.51 Long term (current) use of inhaled steroids; Z79.52 Long term (current) use of systemic steroids; Z79.899 Other long term (current) drug therapy; Z80.9 Family history of malignant neoplasm, unspecified; Z90.49 Acquired absence of other specified parts of digestive tract; E11.65 Type 2 diabetes mellitus with hyperglycemia; T75.89XS Other specified effects of external causes, sequela; R74.8 Abnormal levels of other serum enzymes; F32.9 Major depressive disorder, single episode, unspecified
CPT/HCPCS: 36415; 71046; 80048; 80053; 80202; 81001; 82550; 82553; 83036; 83605; 83735; 83880; 84100; 84484; 85025; 85610; 85652; 85730; 86140; 87040; 87086; 87502; 93005; 94640; 96361; 96365; 96368; 96375; 96376; 99285

== ENCOUNTER 2019-02-26 10:17 | Inpatient (IN) | payer OTHER ==
[2019-02-26] MEDS ORDERED: MORPHINE SULFATE 2 MG/ML SYRINGE IVP STA (10:51)
--- NOTE | 2019-02-26 11:08 | ED ---
General Adult HPI - General Chief complaint: Shortness of Breath Stated complaint: low oxygen-sent by [facility] Time Seen by Provider: 02/26/19 10:30 Source: patient, family, RN notes reviewed Mode of arrival: wheelchair Limitations: no limitations - History of Present Illness Initial comments: This is a 63-year-old male who presents emergency department with past medical history significant for polymyositis and pulmonary fibrosis. Patient states the last few days he's been getting more more short of breath and called his primary inventory taker and decided to send him into the emergency department. Patient denies any fever chills per patient denies any chest pain difficulty breathing. Patient states she has diffuse body pain, polymyositis that has not changed. Patient denies any abdominal pain patient denies nausea vomiting diarrhea. Patient states with even minimal exertion he is much more short of breath. Patient denies any leg swelling or calf tenderness. - Related Data Home Medications Medication Instructions Recorded Confirmed Enalapril [Vasotec] 20 mg PO DAILY 06/05/18 02/26/19 Naproxen [Naprosyn] 500 mg PO Q12HR 06/05/18 02/26/19 Omeprazole [PriLOSEC] 20 mg PO AC-BRKFST 06/05/18 02/26/19 Sildenafil [Revatio] 20 mg PO DAILY 06/05/18 02/26/19 Metoprolol Succinate (ER) [Toprol 50 mg PO DAILY 09/09/18 02/26/19 XL] Albuterol Inhaler [Ventolin Hfa 2 puff INHALATION RT-Q4H 01/22/19 02/26/19 Inhaler] Budesonide/Formoterol Fumarate 2 puff INHALATION RT-BID 01/22/19 02/26/19 [Symbicort 160-4.5 Mcg Inhaler] Insulin Glargine [Lantus] 50 unit SQ DAILY 01/22/19 02/26/19 Mycophenolate Mofetil [Cellcept] 1,500 mg PO QAM 01/22/19 02/26/19 metFORMIN HCL [Glucophage] 1,000 mg PO BID 01/22/19 02/26/19 Docusate [Colace] 100 mg PO DAILY 02/26/19 02/26/19 Ergocalciferol (Vitamin D2) 50,000 unit PO Q7D 02/26/19 02/26/19 [Drisdol] Ferrous Sulfate [Feosol] 650 mg PO DAILY 02/26/19 02/26/19 Hydrocodone/Acetaminophen [[place] 1 tab PO Q4H PRN 02/26/19 02/26/19 10-325] Morphine Sulfate ER [Ms Contin] 15 mg PO Q12HR 02/26/19 02/26/19 Mycophenolate Mofetil [Cellcept] 1,000 mg PO HS 02/26/19 02/26/19 Naloxone HCl [Narcan] 1 spray NASAL DIRECTED 02/26/19 02/26/19 Temazepam [Restoril] 30 mg PO HS 02/26/19 02/26/19 predniSONE See Taper PO DIRECTED 02/26/19 02/26/19 Previous Rx's Medication Instructions Recorded Nicotine 21Mg/24Hr Patch [Habitrol] 1 patch TRANSDERM DAILY #30 patch 01/26/19 Allergies Allergy/AdvReac Type Severity Reaction Status Date / Time No Known Allergies Allergy Verified 02/26/19 11:30 Review of Systems ROS Statement: Those systems with pertinent positive or pertinent negative responses have been documented in the HPI. ROS Other: All systems not noted in ROS Statement are negative. Past Medical History Past Medical History: Diabetes Mellitus, GERD/Reflux, Hypertension, Osteoarthritis (OA), Prostate Disorder Additional Past Medical History / Comment(s): PULMONARY FIBROSIS , ANEMIA, polymyocitis History of Any Multi-Drug Resistant Organisms: None Reported Past Surgical History: Appendectomy, Hernia Repair, Orthopedic Surgery Additional Past Surgical History / Comment(s): UMBILICA HERNIA. RT KNEE SURGERY . COLONOSCOPIES.EGD Past Anesthesia/Blood Transfusion Reactions: No Reported Reaction Past Psychological History: Depression Smoking Status: Current every day smoker Past Alcohol Use History: None Reported Past Drug Use History: None Reported - Past Family History Mother Family Medical History: Cancer General Exam - General Exam Comments Initial Comments: GENERAL: Patient is well-developed and well-nourished. Patient is nontoxic and well- hydrated and is in mild distress. ENT: Neck is soft and supple. No significant lymphadenopathy is noted. Oropharynx is clear. Moist mucous membranes. Neck has full range of motion without eliciting any pain. EYES: The sclera were anicteric and conjunctiva were pink and moist. Extraocular movements were intact and pupils were equal round and reactive to light. Eyelids were unremarkable. PULMONARY: Decreased breath sounds left lung CARDIOVASCULAR: There is a regular rate and rhythm without any murmurs gallops or rubs. ABDOMEN: Soft and nontender with normal bowel sounds. No palpable abdominal masses SKIN: Skin is clear with no lesions or rashes and otherwise unremarkable. NEUROLOGIC: Patient is alert and oriented x3. Cranial nerves II through XII are grossly intact. Motor and sensory are also intact. Normal speech, volume and content. Symmetrical smile. MUSCULOSKELETAL: Normal extremities with adequate strength and full range of motion. No lower extremity swelling or edema. No calf tenderness. LYMPHATICS: No significant lymphadenopathy is noted PSYCHIATRIC: Normal psychiatric evaluation. Limitations: no limitations Course Vital Signs 02/26/19 02/26/19 10:28 12:34 Temperature 98 F Pulse Rate 119 H 110 H Respiratory 28 H 18 Rate Blood Pressure 138/83 134/77 O2 Sat by Pulse 98 96 Oximetry Medical Decision Making - Medical Decision Making EKG shows sinus tachycardia at 111 bpm DC interval 140 [place] is 90 QT interval 332 QTC is 451. Patient's EKG shows no ST segment elevation or depression or T wave abnormalities are noted. Chest x-ray shows possible diffuse pneumonia. Patient also has a large pleural effusion on the left. Patient's troponin was also mildly elevated it will be repeated. Patient denies any chest pain. I spoke with because he agreed to admit the patient admitted the patient continued antibiotics a repeat troponins I consulted cardiology and pulmonary. I wrote admitting orders I continue the Levaquin denies started the emergency department on the floor. - Lab Data Result diagrams: 02/26/19 11:10 02/26/19 11:10 Lab Results 02/26/19 02/26/19 02/26/19 Range/Units 11:10 11:10 11:10 WBC 27.4 H (3.8-10.6) k/uL RBC 4.82 (4.30-5.90) m/uL Hgb 10.7 L (13.0-17.5) gm/dL Hct 34.5 L (39.0-53.0) % MCV 71.6 L (80.0-100.0) fL MCH 22.3 L (25.0-35.0) pg MCHC 31.1 (31.0-37.0) g/dL RDW 19.5 H (11.5-15.5) % Plt Count 249 (150-450) k/uL Neutrophils % (Manual) 39 % Band Neutrophils % 13 % Lymphocytes % (Manual) 8 % Monocytes % (Manual) 8 % Eosinophils % (Manual) 30 % Metamyelocytes % 3 % Myelocytes % 1 % Neutrophils # (Manual) 14.20 H (1.3-7.7) k/uL Lymphocytes # (Manual) 2.19 (1.0-4.8) k/uL Monocytes # (Manual) 2.19 H (0-1.0) k/uL Eosinophils # (Manual) 8.22 H (0-0.7) k/uL Metamyelocytes # (Man) 0.82 H (0) k/uL Myelocytes # (Manual) 0.27 H (0) k/uL Nucleated RBCs 0 (0-0) /100 WBC Manual Slide Review Performed Hypochromasia Moderate Poikilocytosis (manual Present Anisocytosis Slight Microcytosis Marked PT 11.0 (9.0-12.0) sec INR 1.0 (<1.2) APTT 24.2 (22.0-30.0) sec Sodium 129 L (137-145) mmol/L Potassium 4.9 (3.5-5.1) mmol/L Chloride 96 L (98-107) mmol/L Carbon Dioxide 21 L (22-30) mmol/L Anion Gap 12 mmol/L BUN 22 H (9-20) mg/dL Creatinine 0.59 L (0.66-1.25) mg/dL Est GFR (CKD-EPI)AfAm >90 (>60 ml/min/1.73 sqM) Est GFR (CKD-EPI)NonAf >90 (>60 ml/min/1.73 sqM) Glucose 188 H (74-99) mg/dL Calcium 9.1 (8.4-10.2) mg/dL Magnesium 1.4 L (1.6-2.3) mg/dL Total Bilirubin 0.5 (0.2-1.3) mg/dL AST 25 (17-59) U/L ALT 21 (21-72) U/L Alkaline Phosphatase 318 H (38-126) U/L Troponin I (0.000-0.034) ng/mL Total Protein 6.0 L (6.3-8.2) g/dL Albumin 3.5 (3.5-5.0) g/dL 02/26/19 Range/Units 11:10 WBC (3.8-10.6) k/uL RBC (4.30-5.90) m/uL Hgb (13.0-17.5) gm/dL Hct (39.0-53.0) % MCV (80.0-100.0) fL MCH (25.0-35.0) pg MCHC (31.0-37.0) g/dL RDW (11.5-15.5) % Plt Count (150-450) k/uL Neutrophils % (Manual) % Band Neutrophils % % Lymphocytes % (Manual) % Monocytes % (Manual) % Eosinophils % (Manual) % Metamyelocytes % % Myelocytes % % Neutrophils # (Manual) (1.3-7.7) k/uL Lymphocytes # (Manual) (1.0-4.8) k/uL Monocytes # (Manual) (0-1.0) k/uL Eosinophils # (Manual) (0-0.7) k/uL Metamyelocytes # (Man) (0) k/uL Myelocytes # (Manual) (0) k/uL Nucleated RBCs (0-0) /100 WBC Manual Slide Review Hypochromasia Poikilocytosis (manual Anisocytosis Microcytosis PT (9.0-12.0) sec INR (<1.2) APTT (22.0-30.0) sec Sodium (137-145) mmol/L Potassium (3.5-5.1) mmol/L Chloride (98-107) mmol/L Carbon Dioxide (22-30) mmol/L Anion Gap mmol/L BUN (9-20) mg/dL Creatinine (0.66-1.25) mg/dL Est GFR (CKD-EPI)AfAm (>60 ml/min/1.73 sqM) Est GFR (CKD-EPI)NonAf (>60 ml/min/1.73 sqM) Glucose (74-99) mg/dL Calcium (8.4-10.2) mg/dL Magnesium (1.6-2.3) mg/dL Total Bilirubin (0.2-1.3) mg/dL AST (17-59) U/L ALT (21-72) U/L Alkaline Phosphatase (38-126) U/L Troponin I 0.037 H* (0.000-0.034) ng/mL Total Protein (6.3-8.2) g/dL Albumin (3.5-5.0) g/dL Disposition Clinical Impression: Elevated troponin, Pleural effusion, Pneumonia Disposition: ADMITTED IP TO THIS HOSP Referrals: Ludy South MD [Primary Care Provider] - 1-2 days Time of Disposition: 12:52
[2019-02-26 11:47] LABS: Partial Thromboplastin Time 24.2 sec (22.0-30.0)
[2019-02-26 11:50] LABS: ALT 21 U/L (21-72); AST 25 U/L (17-59); Albumin 3.5 g/dL (3.5-5.0); Alkaline Phosphatase 318 U/L (38-126); Anion Gap 12 mmol/L; Blood Urea Nitrogen 22 mg/dL (9-20); Calcium 9.1 mg/dL (8.4-10.2); Carbon Dioxide 21 mmol/L (22-30); Chloride 96 mmol/L (98-107); Glucose 188 mg/dL (74-99); Magnesium 1.4 mg/dL (1.6-2.3); Potassium 4.9 mmol/L (3.5-5.1); Sodium 129 mmol/L (137-145); Total Bilirubin 0.5 mg/dL (0.2-1.3)
--- NOTE | 2019-02-26 12:04 | XR ---
EXAMINATION TYPE: XR chest 2V DATE OF EXAM: 02/26/2019 COMPARISON: 01/23/2019 HISTORY: Hypoxemia and shortness of breath TECHNIQUE: Frontal and lateral views of the chest are obtained. FINDINGS: The previously seen multifocal opacities that appear to relate to multifocal pneumonia on the prior exam persist with increasing confluence of the left hilum and new moderate left pleural eff usion obscuring the left hemidiaphragm and costophrenic angle. IMPRESSION: Bilateral multifocal patchy opacities persist that again may represent underlying multif ocal pneumonia with a new moderate left pleural effusion. Follow-up to resolution to exclude underlyi ng pulmonary nodule/mass.
[2019-02-26 12:17] LABS: Anisocytosis Slight; HCT 34.5 % (39.0-53.0); HGB 10.7 gm/dL (13.0-17.5); Hypochromasia Moderate; MCH 22.3 pg (25.0-35.0); MCHC 31.1 g/dL (31.0-37.0); MCV 71.6 fL (80.0-100.0); Microcytosis Marked; Platelet Count 249 k/uL (150-450); RBC 4.82 m/uL (4.30-5.90); RDW 19.5 % (11.5-15.5); WBC 27.4 k/uL (3.8-10.6)
[2019-02-26 12:37] LABS: Band Neutrophils % 13 %; Eosinophils # (M) 8.22 k/uL (0-0.7); Lymphocytes # (M) 2.19 k/uL (1.0-4.8); Metamyelocytes # (M) 0.82 k/uL (0); Metamyelocytes % 3 %; Monocytes # (M) 2.19 k/uL (0-1.0); Myelocytes # (M) 0.27 k/uL (0); Myelocytes % 1 %; Neutrophils % (M) 39 %; Nucleated Red Blood Cells 0 /100 WBC (0-0); Total Cells Counted 200
[2019-02-26 12:38] LABS: Poikilocytosis (M) Present
[2019-02-26] MEDS ORDERED: LEVOFLOXACIN 750MG-D5W PMX 750 MG in DEXTROSE/WATER 1 150ML.BAG IVPB STA (12:50)
[2019-02-26] MEDS ORDERED: ASPIRIN 81 MG PO STA (12:52)
[2019-02-26] MEDS ORDERED: PNEUMONIA PROTOCOL UTILIZED 1 EACH MISC PO PRN (12:53)
[2019-02-26] MEDS ORDERED: NITROGLYCERIN OINT 1 INCH/GM PACKET TOPICAL STA (12:53)
[2019-02-26 14:46] LABS: Glucose,Whole Blood 192 mg/dL (75-99)
[2019-02-26] MEDS ORDERED: IPRATROPIUM-ALBUTEROL 3 ML NEB INHALATION PRN ×2 (15:44→22:14)
[2019-02-26] MEDS ORDERED: NALOXONE HCL NASAL SCH (15:45)
[2019-02-26] MEDS: HYDROcodone/APAP 10-325MG 1 EACH TAB PO PRN ×2 (16:05→20:19)
[2019-02-26] MEDS: METOPROLOL SUCCINATE (ER) 50 MG TAB.ER.24H PO SCH ×2 (16:06→16:08)
[2019-02-26] MEDS: DOCUSATE 100 MG CAP PO SCH ×2 (16:06→22:52)
[2019-02-26] MEDS: HEPARIN SODIUM,PORCINE 5,000 UNIT/ML 1 ML VIAL SQ SCH (16:06)
[2019-02-26] MEDS: SODIUM CHLORIDE 0.9% 1,000 ML IV SCH (16:12)
[2019-02-26 17:13] LABS: Glucose,Whole Blood 199 mg/dL (75-99)
[2019-02-26] MEDS: INSULIN ASPART (NovoLOG) 100 UNIT/ML VIAL SQ SCH (17:18)
[2019-02-26] MEDS: ALBUTEROL NEBULIZED 2.5 MG/3 ML INHALATION SCH ×2 (17:21→19:44)
[2019-02-26] MEDS: SYMBICORT 160-4.5 MCG INHALER INHALATION SCH (19:45)
[2019-02-26] MEDS ORDERED: MYCOPHENOLATE MOFETIL 500 MG TAB PO SCH (21:00)
[2019-02-26 21:18] LABS: Glucose,Whole Blood 131 mg/dL (75-99)
[2019-02-26] MEDS: MORPHINE SULFATE ER 15 MG TABLET PO SCH (22:50)
[2019-02-26] MEDS: TEMAZEPAM 30 MG CAP PO PRN (22:52)
--- NOTE | 2019-02-26 22:59 | P.HPIM ---
History of Present Illness H&P Date: 02/26/19 Chief Complaint: Shortness of breath Patient is a 63-year-old male with a known history of diabetes type 2 insulin- dependent, COPD, hypertension, polymyositis, pulmonary fibrosis, interstitial lung disease and multiple other medical problems currently on immunosuppressive therapy with mycophenolate mofetil and prednisone came to ER with the complaints of shortness of breath for the past few days. Patient says that he woke up in the morning today and felt very short of breath. Patient has been using oxygen for the past 2 days. Patient does have home oximetry occasionally uses it. As per the patient, his pulse ox was 88% despite using oxygen at home. Patient says that he does have cough but unable to bring out any sputum due to muscle weakness. Patient does have diffuse body pains due to polymyositis which has not been changed recently. Denied any complaints of fever. Otherwise patient felt very clammy this morning. No nausea vomiting or diarrhea. No headache or dizziness or lightheadedness. Denied any leg swelling. Patient has been having shortness of breath with minimal exertion and call his primary media job titles, Dr. Livingston and was recommended to go to emergency room. Chest x-ray showed bilateral multifocal patchy opacities that again may rep resent underlying multifocal pneumonia with a new moderate left pleural effusion. Follow-up resolution to exclude underlying pulmonary nodule/mass. WBC 27 hemoglobin 10.7, sodium 129, lactic acid 2.8 and troponin 0.037, magnesium 1.4 Past Medical History Past Medical History: COPD, Diabetes Mellitus, GERD/Reflux, Hypertension, Osteoarthritis (OA), Pneumonia, Prostate Disorder, Respiratory Disorder Additional Past Medical History / Comment(s): Polymyositis, pulmonary fibrosis, interstitial lung disease, IDDM type II, neuropathy bilateral feet, BPH, hiatal hernia, abdominal hernia, chronic back pain, polymyositis causes pain in different areas at different times per pt, vertigo at times, gait dysfunction, bilateral tinnitis. History of Any Multi-Drug Resistant Organisms: None Reported Past Surgical History: Appendectomy, Hernia Repair, Orthopedic Surgery Additional Past Surgical History / Comment(s): Umbilical hernia repair, EGD, colonoscopy/benign polyp, sinus surgery, R knee surgery as a child, 2018 L thigh muscle biopsy. Past Anesthesia/Blood Transfusion Reactions: No Reported Reaction Smoking Status: Current every day smoker - Past Family History Mother Family Medical History: Cancer, Congestive Heart Failure (CHF), Diabetes Renetta martinez Additional Family Medical History / Comment(s): Mother had breast cancer. She is living. Father History Unknown: Yes Additional Family Medical History / Comment(s): Father in an industrial accident when he was a young man. Medications and Allergies Home Medications Medication Instructions Recorded Confirmed Type Enalapril [Vasotec] 20 mg PO DAILY 06/05/18 02/26/19 History Naproxen [Naprosyn] 500 - 1,000 mg PO DAILY 06/05/18 02/26/19 History Omeprazole [PriLOSEC] 20 mg PO AC-BRKFST 06/05/18 02/26/19 History Sildenafil [Revatio] 20 mg PO DAILY 06/05/18 02/26/19 History Metoprolol Succinate (ER) [Toprol 50 mg PO DAILY 09/09/18 02/26/19 History XL] Albuterol Inhaler [Ventolin Hfa 2 puff INHALATION RT-Q4H 01/22/19 02/26/19 History Inhaler] Budesonide/Formoterol Fumarate 2 puff INHALATION RT-BID 01/22/19 02/26/19 History [Symbicort 160-4.5 Mcg Inhaler] Insulin Glargine [Lantus] 50 unit SQ DAILY 01/22/19 02/26/19 History Mycophenolate Mofetil [Cellcept] 1,500 mg PO QAM 01/22/19 02/26/19 History metFORMIN HCL [Glucophage] 1,000 mg PO DAILY 01/22/19 02/26/19 History Docusate [Colace] 100 mg PO TID 02/26/19 02/26/19 History Ergocalciferol (Vitamin D2) 50,000 unit PO FR 02/26/19 02/26/19 History [Drisdol] Hydrocodone/Acetaminophen [[place] 1 tab PO Q4H PRN 02/26/19 02/26/19 History 10-325] Iron 85mg 170 mg PO DAILY 02/26/19 02/26/19 History Morphine Sulfate ER [Ms Contin] 15 mg PO Q12HR 02/26/19 02/26/19 History Mycophenolate Mofetil [Cellcept] 1,000 mg PO HS 02/26/19 02/26/19 History Naloxone HCl [Narcan] 1 spray NASAL DIRECTED 02/26/19 02/26/19 History Temazepam [Restoril] 30 mg PO HS 02/26/19 02/26/19 History predniSONE 40 mg PO DAILY 02/26/19 02/26/19 History Allergies Allergy/AdvReac Type Severity Reaction Status Date / Time No Known Allergies Allergy Verified 02/26/19 11:30 Physical Exam Vitals: Vital Signs Temp Pulse Pulse Resp BP BP Pulse Ox 02/26/19 15:06 117 H 02/26/19 15:03 117 H 20 150/86 96 02/26/19 14:09 109 H 20 131/76 93 L 02/26/19 12:34 110 H 18 134/77 96 02/26/19 10:28 98 F 119 H 28 H 138/83 98 Intake and Output 02/26/19 02/26/19 02/26/19 06:59 14:59 22:59 Other: Weight 104.326 kg Results CBC & Chem 7: 02/26/19 11:10 02/26/19 11:10 Labs: Abnormal Lab Results - Last 24 Hours (Table) 02/26/19 02/26/19 02/26/19 Range/Units 11:10 11:10 11:10 WBC 27.4 H (3.8-10.6) k/uL Hgb 10.7 L (13.0-17.5) gm/dL Hct 34.5 L (39.0-53.0) % MCV 71.6 L (80.0-100.0) fL MCH 22.3 L (25.0-35.0) pg RDW 19.5 H (11.5-15.5) % Neutrophils # (Manual) 14.20 H (1.3-7.7) k/uL Monocytes # (Manual) 2.19 H (0-1.0) k/uL Eosinophils # (Manual) 8.22 H (0-0.7) k/uL Metamyelocytes # (Man) 0.82 H (0) k/uL Myelocytes # (Manual) 0.27 H (0) k/uL Sodium 129 L (137-145) mmol/L Chloride 96 L (98-107) mmol/L Carbon Dioxide 21 L (22-30) mmol/L BUN 22 H (9-20) mg/dL Creatinine 0.59 L (0.66-1.25) mg/dL Glucose 188 H (74-99) mg/dL POC Glucose (mg/dL) (75-99) mg/dL Plasma Lactic Acid Iraj (0.7-2.0) mmol/L Magnesium 1.4 L (1.6-2.3) mg/dL Alkaline Phosphatase 318 H (38-126) U/L Troponin I 0.037 H* (0.000-0.034) ng/mL Total Protein 6.0 L (6.3-8.2) g/dL 02/26/19 02/26/19 Range/Units 11:10 14:45 WBC (3.8-10.6) k/uL Hgb (13.0-17.5) gm/dL Hct (39.0-53.0) % MCV (80.0-100.0) fL MCH (25.0-35.0) pg RDW (11.5-15.5) % Neutrophils # (Manual) (1.3-7.7) k/uL Monocytes # (Manual) (0-1.0) k/uL Eosinophils # (Manual) (0-0.7) k/uL Metamyelocytes # (Man) (0) k/uL Myelocytes # (Manual) (0) k/uL Sodium (137-145) mmol/L Chloride (98-107) mmol/L Carbon Dioxide (22-30) mmol/L BUN (9-20) mg/dL Creatinine (0.66-1.25) mg/dL Glucose (74-99) mg/dL POC Glucose (mg/dL) 192 H (75-99) mg/dL Plasma Lactic Acid Iraj 2.8 H* (0.7-2.0) mmol/L Magnesium (1.6-2.3) mg/dL Alkaline Phosphatase (38-126) U/L Troponin I (0.000-0.034) ng/mL Total Protein (6.3-8.2) g/dL Thrombosis Risk Factor Assmnt - Choose All That Apply Any of the Below Risk Factors Present?: Yes Each Factor Represents 1 point: Abnormal pulmonary function (COPD), Obesity (BMI >25), Serious lung disease incl. pneumonia (< 1month) Other Risk Factors: Yes Each Risk Factor Represents 2 Points: Age 61-74 years Other congenital or acquired thrombophilia - If yes, enter type in comment: No Thrombosis Risk Factor Assessment Total Risk Factor Score: 5 Thrombosis Risk Factor Assessment Level: High Risk Assessment and Plan Assessment: Shortness of breath secondary to moderate left pleural effusion and multifocal pneumonia Acute hypoxic respiratory failure Pulmonary fibrosis/interstitial lung disease Polymyositis Diabetes type 2 insulin-dependent Hypertension GERD COPD not in exacerbation Diabetic peripheral neuropathy BPH Chronic back pain Gait dysfunction Nicotine addiction DVT prophylaxis with heparin subcu Plan: Continue with antibiotics in the form of Levaquin. Patient will be continued on DuoNeb's and Symbicort. Continue with home blood pressure medications and insulin dosing. Pulmonary will be consulted. Continue with home medications including immunosuppressants including prednisone. Further recommendations based on the clinical course. Prognosis is guarded. Smoking cessation has been counseled extensively. Time with Patient: Greater than 30
[2019-02-27] MEDS: HYDROcodone/APAP 10-325MG 1 EACH TAB PO PRN ×6 (01:20→23:34)
[2019-02-27] MEDS: HEPARIN SODIUM,PORCINE 5,000 UNIT/ML 1 ML VIAL SQ SCH ×4 (01:21→23:34)
[2019-02-27] MEDS: INSULIN ASPART (NovoLOG) 100 UNIT/ML VIAL SQ SCH ×5 (01:22→21:22)
[2019-02-27 06:09] LABS: Glucose,Whole Blood 89 mg/dL (75-99)
[2019-02-27] MEDS: PANTOPRAZOLE 40 MG TABLET PO SCH (06:34)
--- NOTE | 2019-02-27 07:20 | XR ---
EXAMINATION TYPE: XR chest 2V DATE OF EXAM: 02/27/2019 HISTORY: Shortness of breath. COMPARISON: February 26, 2019 TECHNIQUE: Single view of the chest is submitted. FINDINGS: Moderate opacification left lower lobe likely reflects a combination of effusion, atelectasis and/or infiltrates. Nodular density right lateral lung base persists. The heart is stable. Hilar and mediastinal structures are within normal limits. Degenerative changes are seen of the dorsal spine. IMPRESSION: 1. Moderate opacification left lower lobe likely reflects a combination of effusion, atelectasis and /or infiltrates. Nodular density right lateral lung base persists.
[2019-02-27] MEDS: METOPROLOL SUCCINATE (ER) 50 MG TAB.ER.24H PO SCH (07:40)
[2019-02-27] MEDS: DOCUSATE 100 MG CAP PO SCH ×3 (07:40→21:22)
[2019-02-27] MEDS: LISINOPRIL 20 MG TAB PO SCH (07:40)
[2019-02-27] MEDS: INSULIN DETEMIR (LEVEMIR) 100 UNIT/ML SYR SQ SCH (07:40)
[2019-02-27] MEDS: FERROUS SULFATE 325 MG TAB PO SCH (07:40)
[2019-02-27 07:48] LABS: Anion Gap 10 mmol/L; Blood Urea Nitrogen 22 mg/dL (9-20); Carbon Dioxide 26 mmol/L (22-30); Chloride 94 mmol/L (98-107); Glucose 95 mg/dL (74-99); Potassium 4.2 mmol/L (3.5-5.1); Sodium 130 mmol/L (137-145)
[2019-02-27 08:04] LABS: Anisocytosis Slight; HCT 33.3 % (39.0-53.0); HGB 10.4 gm/dL (13.0-17.5); Hypochromasia Moderate; MCH 22.6 pg (25.0-35.0); MCHC 31.3 g/dL (31.0-37.0); MCV 72.3 fL (80.0-100.0); Mean Platelet Volume 7.6; Microcytosis Moderate; Platelet Count 248 k/uL (150-450); RDW 19.1 % (11.5-15.5); WBC 26.1 k/uL (3.8-10.6)
[2019-02-27] MEDS: MORPHINE SULFATE ER 15 MG TABLET PO SCH ×2 (08:43→21:22)
[2019-02-27] MEDS: SYMBICORT 160-4.5 MCG INHALER INHALATION SCH ×2 (08:56→20:54)
[2019-02-27] MEDS: IPRATROPIUM-ALBUTEROL 3 ML NEB INHALATION SCH ×4 (08:56→20:26)
[2019-02-27] MEDS ORDERED: ERGOCALCIFEROL 50,000 UNIT CAP PO SCH (09:00)
[2019-02-27] MEDS ORDERED: predniSONE 20 MG TAB PO SCH (09:00)
[2019-02-27] MEDS ORDERED: MYCOPHENOLATE MOFETIL 500 MG TAB PO SCH (09:00)
[2019-02-27 09:02] LABS: Band Neutrophils % 4 %; Eosinophils # (M) 5.48 k/uL (0-0.7); Lymphocytes # (M) 4.44 k/uL (1.0-4.8); Metamyelocytes # (M) 0.52 k/uL (0); Metamyelocytes % 2 %; Monocytes # (M) 1.31 k/uL (0-1.0); Myelocytes # (M) 0.26 k/uL (0); Myelocytes % 1 %; Neutrophils % (M) 51 %; Nucleated Red Blood Cells 0 /100 WBC (0-0); Total Cells Counted 200
--- NOTE | 2019-02-27 09:06 | P.CRDCN ---
History of Present Illness Consult date: 02/27/19 Chief complaint: Shortness of breath History of present illness: This is a pleasant 63-year-old gentleman with a past medical history significant for diabetes, hypertension, chronic hypoxic respiratory failure secondary to pulmonary fibrosis, as well as history of polymyositis currently on steroid as well as immunosuppressive therapy, presented to the emergency room because of shortness of breath. For the last few weeks, he has been more short of breath than his baseline. No symptoms of chest pain or chest discomfort. He has been noticing that the oxygen saturation has been low and because of that he has been utilizing oxygen at home. No dizziness or lightheadedness, heart racing or fluttering, or syncope. Sometimes he felt that he was clammy. The chest x-ray showed multifocal patchy opacities bilaterally may represent pneumonia and also new moderate left pleural effusion. EKG showed sinus rhythm without any ischemic ST or T-wave abnormalities. The cardiac enzymes were checked and came in to be slightly abnormal and because of that we consulted to see the patient. The patient denies any history of coronary artery disease or congestive heart failure or any cardiac arrhythmia and denies being under the care of any psychiatric social worker in the past. Interim of risk factor for CAD, he does have diabetes, hypertension, and unfo rtunately he continues to smoke. Past Medical History Past Medical History: COPD, Diabetes Mellitus, GERD/Reflux, Hypertension, Osteoarthritis (OA), Pneumonia, Prostate Disorder, Respiratory Disorder Additional Past Medical History / Comment(s): Polymyositis, pulmonary fibrosis, interstitial lung disease, IDDM type II, neuropathy bilateral feet, BPH, hiatal hernia, abdominal hernia, chronic back pain, polymyositis causes pain in di fferent areas at different times per pt, vertigo at times, gait dysfunction, bilateral tinnitis. History of Any Multi-Drug Resistant Organisms: None Reported Past Surgical History: Appendectomy, Hernia Repair, Orthopedic Surgery Additional Past Surgical History / Comment(s): Umbilical hernia repair, EGD, colonoscopy/benign polyp, sinus surgery, R knee surgery as a child, 2018 L thigh muscle biopsy. Past Anesthesia/Blood Transfusion Reactions: No Reported Reaction Smoking Status: Current every day smoker - Past Family History Mother Family Medical History: Cancer, Congestive Heart Failure (CHF), Diabetes Mellitus Additional Family Medical History / Comment(s): Mother had breast cancer. She is living. Father History Unknown: Yes Additional Family Medical History / Comment(s): Father in an industrial accident when he was a young man. Medications and Allergies Home Medications Medication Instructions Recorded Confirmed Type Enalapril [Vasotec] 20 mg PO DAILY 06/05/18 02/26/19 History Naproxen [Naprosyn] 500 - 1,000 mg PO DAILY 06/05/18 02/26/19 History Omeprazole [PriLOSEC] 20 mg PO AC-BRKFST 06/05/18 02/26/19 History Sildenafil [Revatio] 20 mg PO DAILY 06/05/18 02/26/19 History Metoprolol Succinate (ER) [Toprol 50 mg PO DAILY 09/09/18 02/26/19 History XL] Albuterol Inhaler [Ventolin Hfa 2 puff INHALATION RT-Q4H 01/22/19 02/26/19 History Inhaler] Budesonide/Formoterol Fumarate 2 puff INHALATION RT-BID 01/22/19 02/26/19 History [Symbicort 160-4.5 Mcg Inhaler] Insulin Glargine [Lantus] 50 unit SQ DAILY 01/22/19 02/26/19 History Mycophenolate Mofetil [Cellcept] 1,500 mg PO QAM 01/22/19 02/26/19 History metFORMIN HCL [Glucophage] 1,000 mg PO DAILY 01/22/19 02/26/19 History Docusate [Colace] 100 mg PO TID 02/26/19 02/26/19 History Ergocalciferol (Vitamin D2) 50,000 unit PO FR 02/26/19 02/26/19 History [Drisdol] Hydrocodone/Acetaminophen [[place] 1 tab PO Q4H PRN 02/26/19 02/26/19 History 10-325] Iron 85mg 170 mg PO DAILY 02/26/19 02/26/19 History Morphine Sulfate ER [Ms Contin] 15 mg PO Q12HR 02/26/19 02/26/19 History Mycophenolate Mofetil [Cellcept] 1,000 mg PO HS 02/26/19 02/26/19 History Naloxone HCl [Narcan] 1 spray NASAL DIRECTED 02/26/19 02/26/19 History Temazepam [Restoril] 30 mg PO HS 02/26/19 02/26/19 History predniSONE 40 mg PO DAILY 02/26/19 02/26/19 History Allergies Allergy/AdvReac Type Severity Reaction Status Date / Time No Known Allergies Allergy Verified 02/26/19 11:30 Physical Exam Vitals: Vital Signs Temp Pulse Pulse Resp BP BP Pulse Ox 02/27/19 04:00 97.5 F L 110 H 18 140/85 95 02/27/19 00:00 98.2 F 111 H 18 134/76 95 02/26/19 20:00 97.9 F 115 H 18 109/91 96 02/26/19 19:56 110 H 18 02/26/19 19:46 113 H 18 02/26/19 17:21 112 H 16 95 02/26/19 15:06 117 H 02/26/19 15:03 117 H 20 150/86 96 02/26/19 14:09 109 H 20 131/76 93 L 02/26/19 12:34 110 H 18 134/77 96 02/26/19 10:28 98 F 119 H 28 H 138/83 98 Intake and Output 02/26/19 02/27/19 02/27/19 22:59 06:59 14:59 Intake Total 0 Output Total 200 250 Balance -200 -250 Intake: Oral 0 Output: Urine 200 250 Other: # Voids 0 Weight 104.1 kg - Constitutional General appearance: no acute distress - Respiratory Respiratory: bilateral: diminished - Cardiovascular Rhythm: regular Heart sounds: normal: S1, S2 Results 02/27/19 06:57 02/27/19 06:57 Cardiac Enzymes 02/26/19 02/26/19 02/26/19 Range/Units 11:10 11:10 16:33 AST 25 (17-59) U/L Troponin I 0.037 H* 0.035 H* (0.000-0.034) ng/mL 02/26/19 Range/Units 22:45 AST (17-59) U/L Troponin I 0.040 H* (0.000-0.034) ng/mL Coagulation 02/26/19 Range/Units 11:10 PT 11.0 (9.0-12.0) sec APTT 24.2 (22.0-30.0) sec CBC 02/26/19 02/27/19 Range/Units 11:10 06:57 WBC 27.4 H 26.1 H (3.8-10.6) k/uL RBC 4.82 4.60 (4.30-5.90) m/uL Hgb 10.7 L 10.4 L (13.0-17.5) gm/dL Hct 34.5 L 33.3 L (39.0-53.0) % Plt Count 249 248 (150-450) k/uL Comprehensive Metabolic Panel 02/26/19 02/27/19 Range/Units 11:10 06:57 Sodium 129 L 130 L (137-145) mmol/L Potassium 4.9 4.2 (3.5-5.1) mmol/L Chloride 96 L 94 L (98-107) mmol/L Carbon Dioxide 21 L 26 (22-30) mmol/L BUN 22 H 22 H (9-20) mg/dL Creatinine 0.59 L 0.68 (0.66-1.25) mg/dL Glucose 188 H 95 (74-99) mg/dL Calcium 9.1 9.0 (8.4-10.2) mg/dL AST 25 (17-59) U/L ALT 21 (21-72) U/L Alkaline Phosphatase 318 H (38-126) U/L Total Protein 6.0 L (6.3-8.2) g/dL Albumin 3.5 (3.5-5.0) g/dL Current Medications Generic Name Dose Route Start Last Admin Trade Name Freq PRN Reason Stop Dose Admin Hydrocodone Bitart/Acetaminophen 1 each 02/26/19 15:42 02/27/19 07:41 [place] 10 PO 1 each Q4H PRN Administration Pain Albuterol/Ipratropium 3 ml 02/27/19 08:00 02/27/19 08:56 Duoneb 0.5 Mg-3 Mg/3 Ml Soln INHALATION Not Given RT-QID BRYCE Albuterol/Ipratropium 3 ml 02/26/19 22:14 Duoneb 0.5 Mg-3 Mg/3 Ml Soln INHALATION RT-Q2H PRN Shortness Of Breath Or Wheezing Budesonide/Formoterol Fumarate 2 puff 02/26/19 20:00 02/27/19 08:56 Symbicort 160-4.5 Mcg Inhaler INHALATION Not Given RT-BID BRYCE Docusate Sodium 100 mg 02/26/19 16:00 02/27/19 07:40 Colace PO 100 mg TID BRYCE Administration Ergocalciferol 50,000 unit 02/27/19 09:00 02/27/19 07:40 Vitamin D2 PO 50,000 unit FR BRYCE Administration Ferrous Sulfate 325 mg 02/27/19 09:00 02/27/19 07:40 Feosol PO 325 mg DAILY BRYCE Administration Heparin Sodium (Porcine) 5,000 unit 02/26/19 16:00 02/27/19 07:39 Heparin SQ 5,000 unit Q8HR BRYCE Administration Levofloxacin 750 mg/ IV 150 mls @ 100 mls/hr 02/27/19 13:00 Solution IVPB Q24H [facility] Sodium Chloride 1,000 mls @ 50 mls/hr 02/26/19 15:45 02/26/19 16:12 Saline 0.9% IV 50 mls/hr .Q20H BRYCE Administration Insulin Aspart 0 unit 02/26/19 17:30 02/27/19 07:30 Novolog SQ Not Given ACHS [facility] Protocol Insulin Detemir 50 unit 02/27/19 09:00 02/27/19 07:40 Levemir SQ Not Given DAILY [facility] Lisinopril 40 mg 02/27/19 09:00 02/27/19 07:40 Zestril PO 40 mg DAILY [facility] Administration Metoprolol Succinate 50 mg 02/26/19 15:45 02/27/19 07:40 Toprol Xl PO 50 mg DAILY [facility] Administration Miscellaneous Information 1 each 02/26/19 12:53 Pneumonia Protocol Utilized PO ONCE PRN Per Protocol Morphine Sulfate 15 mg 02/26/19 21:00 02/27/19 08:43 Ms Contin PO 15 mg Q12HR BRYCE Administration Mycophenolate Mofetil 1,000 mg 02/26/19 21:00 02/26/19 22:51 Cellcept PO 1,000 mg HS BRYCE Administration Mycophenolate Mofetil 1,500 mg 02/27/19 09:00 02/27/19 07:41 Cellcept PO 1,500 mg QAM BR[facility]CE Administration Pantoprazole Sodium 40 mg 02/27/19 07:30 02/27/19 06:34 Protonix PO 40 mg AC-BRKFST BRYCE Administration Prednisone 40 mg 02/27/19 09:00 02/27/19 07:41 PO 40 mg DAILY BRYCE Administration Temazepam 30 mg 02/26/19 21:00 02/26/19 22:52 Restoril PO 30 mg HS PRN Administration Insomnia Intake and Output 02/26/19 02/27/19 02/27/19 22:59 06:59 14:59 Intake Total 0 Output Total 200 250 Balance -200 -250 Intake: Oral 0 Output: Urine 200 250 Other: # Voids 0 Weight 104.1 kg 02/27/19 06:57 02/27/19 06:57 Assessment and Plan Assessment: Assessment #1 acute hypoxic respiratory failure #2 history of pulmonary fibrosis #3 possible bilateral pneumonia #4 history of myositis #5 mildly abnormal cardiac enzymes #6 hypertension #7 history of smoking Plan #1 the mildly abnormal cardiac enzymes is probably type II secondary to hypoxemia. At the same time, severe underlying coronary artery disease to be ruled out, giving the patient risk factors including diabetes, hypertension, and significant history of smoking #2 for now, I would consider conservative medical approach for the mildly abnormal cardiac enzymes. We'll follow-up with the pulmonary service input. #3 continue aspirin as well as metoprolol. Would increase the dose of the metoprolol if the blood pressure allow. #4 obtain an echocardiogram was Doppler #5 follow-up with the patient. Thank you for allowing us participate in the care of the patient please do not hesitate to call if you have any question or concern
[2019-02-27 11:41] LABS: Glucose,Whole Blood 202 mg/dL (75-99)
[2019-02-27] MEDS: SODIUM CHLORIDE 0.9% 1,000 ML IV SCH (11:56)
[2019-02-27] MEDS ORDERED: LEVOFLOXACIN 750MG-D5W PMX 750 MG in DEXTROSE/WATER 1 150ML.BAG IVPB SCH (13:00)
[2019-02-27] MEDS ORDERED: RX INFO: IV CONTRAST WAS GIVEN 1 EACH MISC MISCELLANE PRN (13:57)
[2019-02-27 14:48] VITALS: BMI 32.0
--- NOTE | 2019-02-27 15:28 | CT ---
EXAMINATION TYPE: CT chest w con DATE OF EXAM: 02/27/2019 COMPARISON: Chest x-ray from earlier today an older studies HISTORY: Shortness of breath and chest pain. CT DLP: 578.1 mGycm. Automated Exposure Control for Dose Reduction was Utilized. TECHNIQUE: CT scan of the thorax is performed following with IV Contrast, patient injected with 100 mL of Isovue 300. FINDINGS: LUNGS: There is persistent moderate to large left pleural effusion and associated left mid to lower l jude compressive atelectasis. There is left upper lung central groundglass opacity. Right lung shows m ultifocal areas of groundglass opacity with areas of nodular and masslike consolidation most prominen t in the lower lungs. Largest area measures 4.4 x 1.8 cm axial image 40. There is occlusion of the l eft lower lobe bronchus shortly after its origin axial image 28. No distinct mediastinal shift. MEDIASTINUM: There are enlarged mediastinal lymph nodes. For reference right paratracheal lymph node measures 1.7 x 1.5 cm-image 20. For reference anterior right hilar lymph node measures 1.8 x 1.6 cm image 27. No cardiomegaly or pericardial effusion is seen. OTHER: Osseous structures show numerous sclerotic foci consistent with osseous metastatic disease, la rgest lesion is involving L2 vertebra diffusely there is mild height loss involving the T7 vertebra s uperior anterior endplate possible chronic compression fracture as there is no linear lucency present . There is suspicious left adrenal mass measuring 3.7 x 3.9 cm image 55. There is suspicious right re troperitoneal mass or adenopathy posterior to IVC image 64. IMPRESSION: 1. Moderate to large size left pleural effusion confirmed with associated left lung compressive atele ctasis. 2. Metastatic neoplasm is present. There is diffuse osseous metastatic disease. There are suspicious nodules in the right lung base. There is abrupt occlusion of the left lower lung bronchus suggesting mass or mucous plugging. There is suspicious thoracic adenopathy and left adrenal mass. Consider PET/ CT follow-up to further evaluate to help guide sampling.
[2019-02-27 16:44] LABS: Glucose,Whole Blood 244 mg/dL (75-99)
--- NOTE | 2019-02-27 18:16 | P.CNPUL ---
History of Present Illness Consult date: 02/27/19 Reason for consult: dyspnea, pleural effusion History of present illness: This is a 63-year-old male patient with a complicated medical history which includes progressive weakness, progressive shortness of breath and possibly component of myositis for which she is been under investigation and the patient is demented on high-dose was a pleasant agents including a combination of CellCept and prednisone. I had a lengthy discussion with his dispatcher chief oil at [facility]. The patient has undergone a muscle biopsy. We are not certain about the diagnosis of polymyositis and other diagnoses being entertained. The patient has been progressively getting more short of breath and the chest x-ray from 2 months back in the follow-up chest exit was done today showed worsening in the Mikana better pleural effusion in addition to multiple nodularities throughout the right and the left lung. The patient was admitted to the hospital and I ordered a CAT scan of the chest that showed a moderate-sized left-sided pleural effusion in addition to multiple other lesions scattered throughout the right and the left lung carlin bilaterally and the findings are highly suggestive of underlying metastatic disease. The patient also has mediastinal lymphadenopathy. Note that the patient has had persistent leukocytosis, sed rate has been consistently elevated, his immunoglobulin levels have been low, he has 21% eosinophil counts and he is immunosuppressed. He is afebrile. He is weak. He has constitutional symptoms including weight loss. He is a hematologic profile is not available to me, however based on my discussion with the dispatcher chief oil, ANCA levels have not been obtained and I am a bit concerned about the possibility of vasculitis including Iliana's dermatosis. I'm also unsure of his TB status. Nevertheless the patient has no exposure to TB and he has lived all his life and [place]. No nausea. No vomiting. No altered mentation. He is a congested cough. No hemoptysis. No pleurisy. He has been working with the rheumatology department at [facility]. Review of Systems Constitutional: Reports fatigue, Reports poor appetite, Reports weakness, Reports weight loss Eyes: denies as per HPI, denies blurred vision, denies bulging eye, denies decreased vision, denies diplopia, denies discharge, denies dry eye, denies irritation, denies itching, denies pain, denies photophobia, denies loss of peripheral vision, denies loss of vision, denies tunnel vision/blind spots Ears: deny: decreased hearing, ear discharge, earache, tinnitus Ears, nose, mouth and throat: Denies headache, Denies sore throat Cardiovascular: Reports decreased exercise tolerance, Reports dyspnea on exertion Respiratory: Reports cough, Reports dyspnea Gastrointestinal: Reports loss of appetite Genitourinary: Reports as per HPI Musculoskeletal: Reports muscle weakness, Reports myalgias Musculoskeletal: absent: ankle pain, ankle stiffness, ankle swelling, as per HPI, elbow pain, elbow stiffness, elbow swelling, foot pain, foot stiffness, foot swelling, hand pain, hand stiffness, hand swelling, hip pain, hip stiffness, hip swelling, knee pain, knee stiffness, knee swelling, shoulder pain, shoulder stiffness, shoulder swelling, wrist pain, wrist stiffness, wrist swelling Integumentary: Reports as per HPI Neurological: Reports weakness Psychiatric: Reports as per HPI Endocrine: Reports fatigue Hematologic/Lymphatic: Reports as per HPI Allergic/Immunologic: Reports as per HPI Past Medical History Past Medical History: COPD, Diabetes Mellitus, GERD/Reflux, Hypertension, Osteoarthritis (OA), Prostate Disorder, Respiratory Disorder Additional Past Medical History / Comment(s): Polymyositis, interstitial lung disease, IDDM type II, neuropathy bilateral feet, BPH, hiatal hernia, abdominal hernia, chronic back pain, polymyositis causes pain in different areas at different times per pt, vertigo at times, gait dysfunction, bilateral tinnitis. History of Any Multi-Drug Resistant Organisms: None Reported Past Surgical History: Appendectomy, Hernia Repair, Orthopedic Surgery Additional Past Surgical History / Comment(s): Umbilical hernia repair, EGD, colonoscopy/benign polyp, sinus surgery, R knee surgery as a child, 2018 L thigh muscle biopsy. Past Anesthesia/Blood Transfusion Reactions: No Reported Reaction Smoking Status: Current every day smoker - Past Family History Mother Family Medical History: Cancer, Congestive Heart Failure (CHF), Diabetes Mellitus Additional Family Medical History / Comment(s): Mother had breast cancer. She is living. Father History Unknown: Yes Additional Family Medical History / Comment(s): Father in an industrial accident when he was a young man. Medications and Allergies Home Medications Medication Instructions Recorded Confirmed Type Enalapril [Vasotec] 20 mg PO DAILY 06/05/18 02/26/19 History Naproxen [Naprosyn] 500 - 1,000 mg PO DAILY 06/05/18 02/26/19 History Omeprazole [PriLOSEC] 20 mg PO AC-BRKFST 06/05/18 02/26/19 History Sildenafil [Revatio] 20 mg PO DAILY 06/05/18 02/26/19 History Metoprolol Succinate (ER) [Toprol 50 mg PO DAILY 09/09/18 02/26/19 History XL] Albuterol Inhaler [Ventolin Hfa 2 puff INHALATION RT-Q4H 01/22/19 02/26/19 Hist ory Inhaler] Budesonide/Formoterol Fumarate 2 puff INHALATION RT-BID 01/22/19 02/26/19 Histor y [Symbicort 160-4.5 Mcg Inhaler] Insulin Glargine [Lantus] 50 unit SQ DAILY 01/22/19 02/26/19 History Mycophenolate Mofetil [Cellcept] 1,500 mg PO QAM 01/22/19 02/26/19 History metFORMIN HCL [Glucophage] 1,000 mg PO DAILY 01/22/19 02/26/19 History Docusate [Colace] 100 mg PO TID 02/26/19 02/26/19 History Ergocalciferol (Vitamin D2) 50,000 unit PO FR 02/26/19 02/26/19 History [Drisdol] Hydrocodone/Acetaminophen [[place]odi 1 tab PO Q4H PRN 02/26/19 02/26/19 History 10-325] Iron 85mg 170 mg PO DAILY 02/26/19 02/26/19 History Morphine Sulfate ER [Ms Contin] 15 mg PO Q12HR 02/26/19 02/26/19 History Mycophenolate Mofetil [Cellcept] 1,000 mg PO HS 02/26/19 02/26/19 History Naloxone HCl [Narcan] 1 spray NASAL DIRECTED 02/26/19 02/26/19 History Temazepam [Restoril] 30 mg PO HS 02/26/19 02/26/19 History predniSONE 40 mg PO DAILY 02/26/19 02/26/19 History Allergies Allergy/AdvReac Type Severity Reaction Status Date / Time No Known Allergies Allergy Verified 02/26/19 11:30 Physical Exam Vitals: Vital Signs Temp Pulse Pulse Resp BP Pulse Ox 02/27/19 16:45 102 H 02/27/19 16:27 108 H 20 2 L 02/27/19 15:04 97.8 F 121 H 20 174/85 91 L 02/27/19 12:00 98.6 F 106 H 18 155/78 96 02/27/19 09:34 104 H 02/27/19 09:26 100 02/27/19 08:00 97.4 F L 120 H 18 171/94 95 02/27/19 04:00 97.5 F L 110 H 18 140/85 95 02/27/19 00:00 98.2 F 111 H 18 134/76 95 02/26/19 20:00 97.9 F 115 H 18 109/91 96 02/26/19 19:56 110 H 18 02/26/19 19:46 113 H 18 Intake and Output 02/27/19 02/27/19 02/27/19 06:59 14:59 22:59 Intake Total 400 Output Total 250 Balance -250 400 Intake: IV 400 Sodium Chloride 0.9% 1, 400 000 ml @ 50 mls/hr IV . Q20H [facility] Rx#:[id number] Output: Urine 250 Other: Weight 104.1 kg 104.1 kg Gen. appearance, comfortable not in acute distress. Patient is slightly john rehensive and anxious Head exam was generally normal. There was no scleral icterus or corneal arcus. Mucous membranes were moist. Neck was supple and without jugular venous distension, thyromegaly, or carotid bruits. Carotids were easily palpable bilaterally. There was no adenopathy. Lungs sounds are diminished on the left compared to the right and there is dullness to percussion. Cardiac exam revealed the PMI to be normally situated and sized. The rhythm was regular and no extrasystoles were noted during several minutes of auscultation. The first and second heart sounds were normal and physiologic splitting of the second heart sound was noted. There were no murmurs, rubs, clicks, or gallops. Abdominal exam revealed normal bowel sounds. The abdomen was soft, non-tender, and without masses, organomegaly, or appreciable enlargement of the abdominal aorta. Examination of the extremities revealed easily palpable radial, femoral and pedal pulses. There was no cyanosis, clubbing or edema. Examination of the skin revealed no evidence of significant rashes, suspicious appearing nevi or other concerning lesions. Neurologic the patient has muscle weakness in all 4 extremities. No focal neur ological deficits. Results - Laboratory Findings CBC and BMP: 02/27/19 06:57 02/27/19 06:57 PT/INR, D-dimer PT 11.0 sec (9.0-12.0) 02/26/19 11:10 INR 1.0 (<1.2) 02/26/19 11:10 Abnormal lab findings: Abnormal Labs 02/26/19 02/26/19 02/26/19 11:10 11:10 11:10 WBC 27.4 H Hgb 10.7 L Hct 34.5 L MCV 71.6 L MCH 22.3 L RDW 19.5 H Neutrophils # (Manual) 14.20 H Monocytes # (Manual) 2.19 H Eosinophils # (Manual) 8.22 H Metamyelocytes # (Man) 0.82 H Myelocytes # (Manual) 0.27 H Sodium 129 L Chloride 96 L Carbon Dioxide 21 L BUN 22 H Creatinine 0.59 L Glucose 188 H POC Glucose (mg/dL) Plasma Lactic Acid Iraj Magnesium 1.4 L Alkaline Phosphatase 318 H Troponin I 0.037 H* Total Protein 6.0 L 02/26/19 02/26/19 02/26/19 11:10 14:45 16:33 WBC Hgb Hct MCV MCH RDW Neutrophils # (Manual) Monocytes # (Manual) Eosinophils # (Manual) Metamyelocytes # (Man) Myelocytes # (Manual) Sodium Chloride Carbon Dioxide BUN Creatinine Glucose POC Glucose (mg/dL) 192 H Plasma Lactic Acid Iraj 2.8 H* Magnesium Alkaline Phosphatase Troponin I 0.035 H* Total Protein 02/26/19 02/26/19 02/26/19 17:12 21:16 22:45 WBC Hgb Hct MCV MCH RDW Neutrophils # (Manual) Monocytes # (Manual) Eosinophils # (Manual) Metamyelocytes # (Man) Myelocytes # (Manual) Sodium Chloride Carbon Dioxide BUN Creatinine Glucose POC Glucose (mg/dL) 199 H 131 H Plasma Lactic Acid Iraj Magnesium Alkaline Phosphatase Troponin I 0.040 H* Total Protein 02/27/19 02/27/19 02/27/19 06:57 06:57 11:32 WBC 26.1 H Hgb 10.4 L Hct 33.3 L MCV 72.3 L MCH 22.6 L RDW 19.1 H Neutrophils # (Manual) 14.30 H Monocytes # (Manual) 1.31 H Eosinophils # (Manual) 5.48 H Metamyelocytes # (Man) 0.52 H Myelocytes # (Manual) 0.26 H Sodium 130 L Chloride 94 L Carbon Dioxide BUN 22 H Creatinine Glucose POC Glucose (mg/dL) 202 H Plasma Lactic Acid Iraj Magnesium Alkaline Phosphatase Troponin I Total Protein 02/27/19 16:42 WBC Hgb Hct MCV MCH RDW Neutrophils # (Manual) Monocytes # (Manual) Eosinophils # (Manual) Metamyelocytes # (Man) Myelocytes # (Manual) Sodium Chloride Carbon Dioxide BUN Creatinine Glucose POC Glucose (mg/dL) 244 H Plasma Lactic Acid Iraj Magnesium Alkaline Phosphatase Troponin I Total Protein - Diagnostic Findings Chest x-ray: report reviewed, image reviewed CT scan - chest: image reviewed Assessment and Plan Plan: 1 acute hypoxic respiratory failure 2 shortness of breath, subacute 3 new onset left-sided pleural effusion 4 diffuse bilateral pulmonary lesions/nodules of various sizes and distribution. Rule out metastatic disease knowing that the patient has a new onset left-sided pleural effusion and mediastinal lymphadenopathy. Rule out metastatic bronchogenic carcinoma. Rule out lymphoma. Rule out septic embolization secondary to endocarditis. Rule out opportunistic infection knowing that the patient has been immunosuppressed with a combination of CellCept and prednisone. Rule out vasculitis including Iliana's dermatosis. Rule out pulmonary manifestations of polymyositis. 5 questionable polymyositis with elevated CPK levels. Underlying ILD is not certain at this point in time. 6 elevated CPKs 7 elevated sed rate and CRP 8 eosinophilia 9 COPD 7 diabetes mellitus 11 hypertension 12 BPH 13. Peripheral neuropathy Plan I contacted [facility] I talked to Dr. Horvath, the dispatcher chief oil in charge of his case who also happens to be a muscle specialist. She the muscle specialist and has interest and poor this myositis. She is not certain of the diagnosis. She is considering alternatives toileting malignancy and she is highly concerned of septic embolization secondary to endocarditis. I think all these are considerations that are very much reasonable. She wanted the patient to be chance of back to [facility]. I'm very receptive to her suggestion knowing that while her workup has already been done [facility] and the patient would need an extensive rheumatologic and infectious and malignancy workup that can be performed at [facility]. I discussed this with the patient and will make arranges for this transfer. Meanwhile we'll continue supportive care and will follow. We'll check CPK. We'll check sed rate. We'll check p and c-ANCA. Stop the CellCept per rheumatology recommendation. Kept on the prednisone per rheumatology recommendation. Obtain a regular transthoracic echocardiogram. Obtain blood cultures.
--- NOTE | 2019-02-27 18:45 | ECHOF ---
Referral Reason:nstemi MEASUREMENTS -------- HEIGHT: 180.3 cm WEIGHT: 103.9 kg BP: IVSd: 1.4 cm (0.6 - 1.1) LVIDd: 4.9 cm (3.9 - 5.3) LVPWd: 1.4 cm (0.6 - 1.1) IVSs: 1.9 cm LVIDs: 2.7 cm LVPWs: 2.5 cm Ao Diam: 3.7 cm (2.0 - 3.7) AV Cusp: 1.7 cm (1.5 - 2.6) LA Diam: 3.5 cm (2.7 - 3.8) MV E Erasmo: 0.65 m/s MV DecT: 113 ms MV A Erasmo: 1.00 m/s MV E/A Ratio: 0.65 RAP: 5.00 mmHg RVSP: 17.26 mmHg FINDINGS -------- Resting tachycardia (HR>100bpm). This was a technically difficult study with suboptimal views. The left ventricular size is normal. There is moderate concentric left ventricular hypertrophy. O verall left ventricular systolic function is normal with, an EF between 55 - 60 %. The right ventricle is normal in size and function. The left atrial size is normal. The right atrial size is normal. Lumason used Interatrial and interventricular septum intact. The aortic valve is trileaflet and appears structurally normal. There is trace mitral regurgitation. Trace tricuspid regurgitation present. The right ventricular systolic pressure, as measured by Dopp ler, is 17.26mmHg. There is no pulmonic regurgitation present. The aortic root size is normal. There is a small, generalized pericardial effusion present. Large Pleural Effusion. CONCLUSIONS -------- 1. Resting tachycardia (HR>100bpm). 2. This was a technically difficult study with suboptimal views. 3. The left ventricular size is normal. 4. There is moderate concentric left ventricular hypertrophy. 5. The right ventricle is normal in size and function. 6. The left atrial size is normal. 7. The right atrial size is normal. 8. Lumason used 9. Interatrial and interventricular septum intact. 10. The aortic valve is trileaflet and appears structurally normal. 11. There is trace mitral regurgitation. 12. Trace tricuspid regurgitation present. 13. The right ventricular systolic pressure, as measured by Doppler, is 17.26mmHg. 14. There is no pulmonic regurgitation present. 15. The aortic root size is normal. 16. There is a small, generalized pericardial effusion present. 17. Large Pleural Effusion. CUSTOMS ENTRY CLERK: Marlys Anand RDCS
[2019-02-27 20:31] LABS: Glucose,Whole Blood 227 mg/dL (75-99)
[2019-02-27] MEDS: TEMAZEPAM 30 MG CAP PO PRN (21:22)
--- NOTE | 2019-02-28 00:28 | P.PN ---
Subjective Progress Note Date: 02/27/19 Principal diagnosis: Shortness of breath secondary to moderate left pleural effusion and multifocal pneumonia vs metastatic lesions versus lymphoma Patient is a 63-year-old male with a known history of diabetes type 2 insulin- dependent, COPD, hypertension, polymyositis, pulmonary fibrosis, interstitial lung disease and multiple other medical problems currently on immunosuppressive therapy with mycophenolate mofetil and prednisone came to ER with the complaints of shortness of breath for the past few days. Patient says that he woke up in the morning today and felt very short of breath. Patient has been using oxygen for the past 2 days. Patient does have home oximetry occasionally uses it. As per the patient, his pulse ox was 88% despite using oxygen at home. Patient says that he does have cough but unable to bring out any sputum due to muscle weakness. Patient does have diffuse body pains due to polymyositis which has not been changed recently. Denied any complaints of fever. Otherwise patient felt very clammy this morning. No nausea vomiting or diarrhea. No headache or dizziness or lightheadedness. Denied any leg swelling. 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 Livingston and was recommended to go to emergency room. Chest x-ray showed bilateral multifocal patchy opacities that again may represent underlying multifocal pneumonia with a new moderate left pleural effusion. Follow-up resolution to exclude underlying pulmonary nodule/mass. WBC 27 hemoglobin 10.7, sodium 129, lactic acid 2.8 and troponin 0.037, magnesium 1.4 02/27/2019 Patient is still complaining of shortness of breath but improved compared to yesterday. Patient was seen by pulmonary and CT chest was done showed moderate- sized left pleural effusion with associated compressive atelectasis. Metastatic neoplasm is present. There is diffuse osseous metastatic disease. There are suspicious nodules in the right lung base. There is abrupt occlusion of the left lower lung bronchus suggesting mass or mucus plugging. There is suspicious thoracic adenopathy and adrenal mass. Consider PET/follow-up CT. Patient is on follow-up with his turning lathe tender at [facility]. Discussed the case with Dr. Caballero at the [facility] for possible transfer to tertiary care facility due to possibility of septic embolization with secondary to endocarditis versus metastatic neoplasm versus lymphoma and the patient may need extensive workup and also previous workup has already done at the [facility]. Dr. Caballero states that transfer to tertiary care facility is not possible at this time and recommends to continue pulmonary workup including bronchoscopy with biopsy and thoracentesis. Patient is being continued on antibiotics in the form of Levaquin. Continued on breathing treatments. No fever no chills. No nausea vomiting or abdominal pain. Patient otherwise still dyspneic with minimal ambulation. Critical care team is following. Current medications reviewed. Objective - Vital Signs Vital signs: Vital Signs Temp 97.8 F 02/27/19 15:04 Pulse 121 H 02/27/19 15:04 Resp 20 02/27/19 15:04 BP 174/85 02/27/19 15:04 Pulse Ox 91 L 02/27/19 15:04 Intake & Output 02/26/19 02/27/19 02/27/19 18:59 06:59 18:59 Intake Total 0 400 Output Total 450 Balance 0 -450 400 Weight 104.326 kg 104.1 kg 104.1 kg Intake: IV 400 Sodium Chloride 0.9% 1, 400 000 ml @ 50 mls/hr IV . Q20H [facility] Rx#:[id number] Oral 0 Output: Urine 450 Other: # Voids 0 0 - Exam PHYSICAL EXAMINATION: Patient is lying in the bed comfortably, no acute distress, awake alert and oriented.. HEENT: Normocephalic. Neck is supple. Pupils reactive. Nostrils clear. Oral cavity is moist. Ears reveal no drainage. Neck reveals no JVD, carotid bruits, or thyromegaly. CHEST EXAMINATION: Trachea is central. Symmetrical expansion. Left lower lobe diminished air entry. No wheezing. Minimal use of accessory muscles. CARDIAC: Normal S1, S2 with no gallops. No murmurs ABDOMEN: Soft. Bowel sounds normal. No organomegaly. No abdominal bruits. Extremities: Trace edema. No clubbing or cyanosis Neurologically awake, alert, oriented x3 with well-coordinated movements. No focal deficits noted Skin: No rash or skin lesions. Psychiatric: Coperative. Nonsuicidal Musculoskeletal: No joint swelling or deformity. Normal range of motion. - Labs CBC & Chem 7: 02/27/19 06:57 02/27/19 06:57 Labs: Abnormal Lab Results - Last 24 Hours (Table) 02/26/19 02/26/19 02/26/19 Range/Units 16:33 17:12 21:16 WBC (3.8-10.6) k/uL Hgb (13.0-17.5) gm/dL Hct (39.0-53.0) % MCV (80.0-100.0) fL MCH (25.0-35.0) pg RDW (11.5-15.5) % Neutrophils # (Manual) (1.3-7.7) k/uL Monocytes # (Manual) (0-1.0) k/uL Eosinophils # (Manual) (0-0.7) k/uL Metamyelocytes # (Man) (0) k/uL Myelocytes # (Manual) (0) k/uL Sodium (137-145) mmol/L Chloride (98-107) mmol/L BUN (9-20) mg/dL POC Glucose (mg/dL) 199 H 131 H (75-99) mg/dL Troponin I 0.035 H* (0.000-0.034) ng/mL 02/26/19 02/27/19 02/27/19 Range/Units 22:45 06:57 06:57 WBC 26.1 H (3.8-10.6) k/uL Hgb 10.4 L (13.0-17.5) gm/dL Hct 33.3 L (39.0-53.0) % MCV 72.3 L (80.0-100.0) fL MCH 22.6 L (25.0-35.0) pg RDW 19.1 H (11.5-15.5) % Neutrophils # (Manual) 14.30 H (1.3-7.7) k/uL Monocytes # (Manual) 1.31 H (0-1.0) k/uL Eosinophils # (Manual) 5.48 H (0-0.7) k/uL Metamyelocytes # (Man) 0.52 H (0) k/uL Myelocytes # (Manual) 0.26 H (0) k/uL Sodium 130 L (137-145) mmol/L Chloride 94 L (98-107) mmol/L BUN 22 H (9-20) mg/dL POC Glucose (mg/dL) (75-99) mg/dL Troponin I 0.040 H* (0.000-0.034) ng/mL 02/27/19 Range/Units 11:32 WBC (3.8-10.6) k/uL Hgb (13.0-17.5) gm/dL Hct (39.0-53.0) % MCV (80.0-100.0) fL MCH (25.0-35.0) pg RDW (11.5-15.5) % Neutrophils # (Manual) (1.3-7.7) k/uL Monocytes # (Manual) (0-1.0) k/uL Eosinophils # (Manual) (0-0.7) k/uL Metamyelocytes # (Man) (0) k/uL Myelocytes # (Manual) (0) k/uL Sodium (137-145) mmol/L Chloride (98-107) mmol/L BUN (9-20) mg/dL POC Glucose (mg/dL) 202 H (75-99) mg/dL Troponin I (0.000-0.034) ng/mL Microbiology - Last 24 Hours (Table) 02/26/19 11:20 Blood Culture - Preliminary Blood No Growth after 24 hours Assessment and Plan Assessment: -Shortness of breath secondary to moderate left pleural effusion and diffuse bilateral pulmonary metastatic lesions. Rule out bronchogenic carcinoma versus lymphoma versus septic embolization secondary to endocarditis. Patient is also on immunosuppressive therapy. Possible multifocal pneumonia/ Acute hypoxic respiratory failure secondary to above. Pulmonary fibrosis/interstitial lung disease Polymyositis Diabetes type 2 insulin-dependent Hypertension GERD COPD not in exacerbation Diabetic peripheral neuropathy BPH Chronic back pain Gait dysfunction Nicotine addiction DVT prophylaxis with heparin subcu Plan: Continue with antibiotics in the form of Levaquin. Patient will be continued on DuoNeb's and Symbicort. Continue with home blood pressure medications and insulin dosing. Pulmonary is following.. Continue with home medications including immunosuppressants including prednisone. Further recommendations based on the clinical course. Prognosis is guarded. Smoking cessation has been counseled extensively. Time with Patient: Greater than 30
[2019-02-28] MEDS: HYDROcodone/APAP 10-325MG 1 EACH TAB PO PRN ×5 (03:34→18:18)
[2019-02-28 06:53] LABS: Glucose,Whole Blood 129 mg/dL (75-99)
[2019-02-28 07:01] LABS: Anisocytosis Slight; HCT 33.1 % (39.0-53.0); HGB 10.4 gm/dL (13.0-17.5); Hypochromasia Slight; MCH 22.5 pg (25.0-35.0); MCHC 31.5 g/dL (31.0-37.0); MCV 71.3 fL (80.0-100.0); Mean Platelet Volume 7.7; Microcytosis Marked; Platelet Count 217 k/uL (150-450); RBC 4.64 m/uL (4.30-5.90); RDW 19.7 % (11.5-15.5); WBC 27.1 k/uL (3.8-10.6)
[2019-02-28] MEDS: INSULIN ASPART (NovoLOG) 100 UNIT/ML VIAL SQ SCH ×3 (07:06→17:12)
[2019-02-28] MEDS: PANTOPRAZOLE 40 MG TABLET PO SCH (07:09)
[2019-02-28] MEDS: SODIUM CHLORIDE 0.9% 1,000 ML IV SCH (07:10)
[2019-02-28 07:13] LABS: Anion Gap 10 mmol/L; Blood Urea Nitrogen 19 mg/dL (9-20); Calcium 9.2 mg/dL (8.4-10.2); Carbon Dioxide 25 mmol/L (22-30); Chloride 95 mmol/L (98-107); Glucose 113 mg/dL (74-99); Potassium 4.8 mmol/L (3.5-5.1); Sodium 130 mmol/L (137-145)
[2019-02-28] MEDS: INSULIN DETEMIR (LEVEMIR) 100 UNIT/ML SYR SQ SCH (07:43)
[2019-02-28] MEDS: DOCUSATE 100 MG CAP PO SCH ×2 (07:50→14:59)
[2019-02-28] MEDS: HEPARIN SODIUM,PORCINE 5,000 UNIT/ML 1 ML VIAL SQ SCH ×2 (07:50→14:56)
[2019-02-28] MEDS: FERROUS SULFATE 325 MG TAB PO SCH (07:50)
[2019-02-28] MEDS: LISINOPRIL 20 MG TAB PO SCH (07:50)
[2019-02-28] MEDS: METOPROLOL SUCCINATE (ER) 50 MG TAB.ER.24H PO SCH (07:51)
[2019-02-28] MEDS: SYMBICORT 160-4.5 MCG INHALER INHALATION SCH (08:29)
[2019-02-28] MEDS: IPRATROPIUM-ALBUTEROL 3 ML NEB INHALATION SCH ×3 (08:29→16:02)
[2019-02-28] MEDS ORDERED: predniSONE 20 MG TAB PO SCH (09:00)
[2019-02-28] MEDS: MORPHINE SULFATE ER 15 MG TABLET PO SCH (09:15)
[2019-02-28 09:47] VITALS: RESP 18
[2019-02-28 09:50] LABS: Band Neutrophils % 8 %; Eosinophils # (M) 7.05 k/uL (0-0.7); Lymphocytes # (M) 3.52 k/uL (1.0-4.8); Metamyelocytes # (M) 0.81 k/uL (0); Metamyelocytes % 3 %; Monocytes # (M) 1.36 k/uL (0-1.0); Myelocytes # (M) 0.54 k/uL (0); Myelocytes % 2 %; Neutrophils % (M) 44 %; Nucleated Red Blood Cells 0 /100 WBC (0-0); Total Cells Counted 200
[2019-02-28 11:49] LABS: Glucose,Whole Blood 180 mg/dL (75-99)
[2019-02-28] MEDS ORDERED: LEVOFLOXACIN 750 MG TAB PO SCH (13:00)
--- NOTE | 2019-02-28 13:17 | XR ---
EXAMINATION TYPE: XR chest 1V portable DATE OF EXAM: 02/28/2019 HISTORY: post left thoracentesis. REFERENCE: Previous study dated 02/27/2019. FINDINGS: There continues to be a left lower lobe infiltrate. There is an enlarging right lower lobe infiltrate. There is a left effusion. Heart size is obscured. IMPRESSION: WORSENING BILATERAL INFILTRATES.
--- NOTE | 2019-02-28 14:14 | P.PN ---
Subjective Progress Note Date: 02/28/19 Principal diagnosis: Abnormal cardiac enzymes This is a pleasant 63-year-old gentleman with a past medical history significant for diabetes, hypertension, chronic hypoxic respiratory failure secondary to pulmonary fibrosis, as well as history of polymyositis currently on steroid as well as immunosuppressive therapy, presented to the emergency room because of shortness of breath. For the last few weeks, he has been more short of breath than his baseline. No symptoms of chest pain or chest discomfort. He has been noticing that the oxygen saturation has been low and because of that he has been utilizing oxygen at home. No dizziness or lightheadedness, heart racing or flu ttering, or syncope. Sometimes he felt that he was clammy. The chest x-ray showed multifocal patchy opacities bilaterally may represent pneumonia and also new moderate left pleural effusion. EKG showed sinus rhythm without any ischemic ST or T-wave abnormalities. The cardiac enzymes were checked and came in to be slightly abnormal and because of that we consulted to see the patient. The patient denies any history of coronary artery disease or congestive heart failure or any cardiac arrhythmia and denies being under the care of any depot manager in the past. On follow-up with the patient today, he seems to be doing better internal shortness of breath. He underwent pleurocentesis earlier today. The echocardiogram revealed normal LV function. He still tachycardic with a resting heart rate in the 100. I'm going to increase the dose of metoprolol succinate 200 mg by mouth daily. The patient is in process to be discharged home later on today. I will follow-up with the patient in the office as an outpatient. Objective - Vital Signs Vital signs: Vital Signs Temp 98.5 F 02/28/19 12:00 Pulse 104 H 02/28/19 12:15 Resp 18 02/28/19 12:00 BP 144/94 02/28/19 12:00 Pulse Ox 92 L 02/28/19 12:00 Intake & Output 02/27/19 02/28/19 02/28/19 18:59 06:59 18:59 Intake Total 400 1060 120 Output Total 200 200 Balance 400 860 -80 Weight 104.1 kg 105.2 kg Intake: IV 400 400 Sodium Chloride 0.9% 1, 400 400 000 ml @ 50 mls/hr IV . [facility] Rx#:[id number] Oral 660 120 Output: Urine 200 200 Other: Voiding Method Toilet Toilet Urinal Urinal # Voids 1 1 - Constitutional General appearance: Present: no acute distress - Respiratory Respiratory: bilateral: diminished - Cardiovascular Rhythm: regular Heart sounds: normal: S1, S2 - Labs CBC & Chem 7: 02/28/19 06:44 02/28/19 06:44 Labs: Abnormal Lab Results - Last 24 Hours (Table) 02/27/19 02/27/19 02/27/19 Range/Units 06:57 16:42 18:24 WBC (3.8-10.6) k/uL Hgb (13.0-17.5) gm/dL Hct (39.0-53.0) % MCV (80.0-100.0) fL MCH (25.0-35.0) pg RDW (11.5-15.5) % Neutrophils # (Manual) (1.3-7.7) k/uL Monocytes # (Manual) (0-1.0) k/uL Eosinophils # (Manual) (0-0.7) k/uL Metamyelocytes # (Man) (0) k/uL Myelocytes # (Manual) (0) k/uL ESR 76 H (0-15) mm/hr Sodium (137-145) mmol/L Chloride (98-107) mmol/L Glucose (74-99) mg/dL POC Glucose (mg/dL) 244 H (75-99) mg/dL C-Reactive Protein (<10.0) mg/L Procalcitonin 0.21 H (0.02-0.09) ng/mL 02/27/19 02/27/19 02/28/19 Range/Units 18:24 20:30 06:42 WBC (3.8-10.6) k/uL Hgb (13.0-17.5) gm/dL Hct (39.0-53.0) % MCV (80.0-100.0) fL MCH (25.0-35.0) pg RDW (11.5-15.5) % Neutrophils # (Manual) (1.3-7.7) k/uL Monocytes # (Manual) (0-1.0) k/uL Eosinophils # (Manual) (0-0.7) k/uL Metamyelocytes # (Man) (0) k/uL Myelocytes # (Manual) (0) k/uL ESR (0-15) mm/hr Sodium (137-145) mmol/L Chloride (98-107) mmol/L Glucose (74-99) mg/dL POC Glucose (mg/dL) 227 H 129 H (75-99) mg/dL C-Reactive Protein 89.9 H (<10.0) mg/L Procalcitonin (0.02-0.09) ng/mL 02/28/19 02/28/19 02/28/19 Range/Units 06:44 06:44 11:45 WBC 27.1 H (3.8-10.6) k/uL Hgb 10.4 L (13.0-17.5) gm/dL Hct 33.1 L (39.0-53.0) % MCV 71.3 L (80.0-100.0) fL MCH 22.5 L (25.0-35.0) pg RDW 19.7 H (11.5-15.5) % Neutrophils # (Manual) 14.00 H (1.3-7.7) k/uL Monocytes # (Manual) 1.36 H (0-1.0) k/uL Eosinophils # (Manual) 7.05 H (0-0.7) k/uL Metamyelocytes # (Man) 0.81 H (0) k/uL Myelocytes # (Manual) 0.54 H (0) k/uL ESR (0-15) mm/hr Sodium 130 L (137-145) mmol/L Chloride 95 L (98-107) mmol/L Glucose 113 H (74-99) mg/dL POC Glucose (mg/dL) 180 H (75-99) mg/dL C-Reactive Protein (<10.0) mg/L Procalcitonin (0.02-0.09) ng/mL Microbiology - Last 24 Hours (Table) 02/26/19 11:20 Blood Culture - Preliminary Blood No Growth after 48 hours 02/27/19 20:45 Gram Stain - Preliminary Sputum Sputum Culture - Preliminary Assessment and Plan Assessment: Assessment #1 acute hypoxic respiratory failure #2 history of pulmonary fibrosis #3 possible bilateral pneumonia #4 history of myositis #5 mildly abnormal cardiac enzymes #6 hypertension #7 history of smoking Plan #1 the mildly abnormal cardiac enzymes is probably type II secondary to hypoxemia. At the same time, severe underlying coronary artery disease to be ruled out, giving the patient risk factors including diabetes, hypertension, and significant history of smoking #2 for now, I would consider conservative medical approach for the mildly abnormal cardiac enzymes. We'll follow-up with the pulmonary service input. #3 increase the dose of Toprol-XL 100 mg by mouth daily #4 from the cardiac standpoint he can be discharged home
[2019-02-28 14:35] LABS: Appearance,BF Cloudy; Color,BF Orange; Nucleated Cells, Body Fluid 1200 /uL
[2019-02-28 14:36] LABS: RBC, Body Fluid 33800 /uL
[2019-02-28 14:51] LABS: Mononuclear WBC,Body Fluid 52 %; Polynuclear WBC,Body Fluid 27 %; Total Cells Counted,Body Fluid 100
--- NOTE | 2019-02-28 15:35 | P.PN ---
Subjective Progress Note Date: 02/28/19 On today's evaluation of 02/28/2019 the patient essentially the same compared to yesterday. I reviewed the CAT scan of the chest and I have elected discussion with the patient's cloth drier at [facility] and the patient's . Obviously this is a very complicated situation. There is a high likelihood that we may be dealing with a metastatic cancer. We opted to proceed with a left-sided thoracentesis. I performed a thoracentesis and I drained approximately liters of pleural fluid without any complications. Subsequent chest x-ray following the procedure showed no evidence of any pneumothorax and there is some residual pleural effusion within the left lung. The fluid was sent for analysis. Meanwhile, as of the blood work showed a white cell count of 27 and elevated sed rate and elevated CRP with a negative blood culture and echocardiogram that showed no evidence of endocarditis. Family expressed wishes to go to [facility]. In fact the family requested discharge home with the intention of being readmitted at [facility] later stage depending on his overall pulmonary status. I think it's reasonable as long as the patient is discharged home on oxygen. Objective - Vital Signs Vital signs: Vital Signs Temp 98.5 F 02/28/19 12:00 Pulse 104 H 02/28/19 12:15 Resp 18 02/28/19 12:00 BP 144/94 02/28/19 12:00 Pulse Ox 92 L 02/28/19 12:00 Intake & Output 02/27/19 02/28/19 02/28/19 18:59 06:59 18:59 Intake Total 400 1060 120 Output Total 200 200 Balance 400 860 -80 Weight 104.1 kg 105.2 kg Intake: IV 400 400 Sodium Chloride 0.9% 1, 400 400 000 ml @ 50 mls/hr IV . [facility] Rx#:[id number] Oral 660 120 Output: Urine 200 200 Other: Voiding Method Toilet Toilet Urinal Urinal # Voids 1 1 - Exam Gen. appearance, comfortable not in acute distress. Patient is slightly apprehensive and anxious Head exam was generally normal. There was no scleral icterus or corneal arcus. Mucous membranes were moist. Neck was supple and without jugular venous distension, thyromegaly, or carotid bruits. Carotids were easily palpable bilaterally. There was no adenopathy. Lungs sounds are diminished on the left compared to the right and there is dullness to percussion. Cardiac exam revealed the PMI to be normally situated and sized. The rhythm was regular and no extrasystoles were noted during several minutes of auscultation. The first and second heart sounds were normal and physiologic splitting of the second heart sound was noted. There were no murmurs, rubs, clicks, or gallops. Abdominal exam revealed normal bowel sounds. The abdomen was soft, non-tender, and without masses, organomegaly, or appreciable enlargement of the abdominal aorta. Examination of the extremities revealed easily palpable radial, femoral and pedal pulses. There was no cyanosis, clubbing or edema. Examination of the skin revealed no evidence of significant rashes, suspicious appearing nevi or other concerning lesions. Neurologic the patient has muscle weakness in all 4 extremities. No focal neurological deficits. - Labs CBC & Chem 7: 02/28/19 06:44 02/28/19 06:44 Labs: Abnormal Lab Results - Last 24 Hours (Table) 02/27/19 02/27/19 02/27/19 Range/Units 06:57 16:42 18:24 WBC (3.8-10.6) k/uL Hgb (13.0-17.5) gm/dL Hct (39.0-53.0) % MCV (80.0-100.0) fL MCH (25.0-35.0) pg RDW (11.5-15.5) % Neutrophils # (Manual) (1.3-7.7) k/uL Monocytes # (Manual) (0-1.0) k/uL Eosinophils # (Manual) (0-0.7) k/uL Metamyelocytes # (Man) (0) k/uL Myelocytes # (Manual) (0) k/uL ESR 76 H (0-15) mm/hr Sodium (137-145) mmol/L Chloride (98-107) mmol/L Glucose (74-99) mg/dL POC Glucose (mg/dL) 244 H (75-99) mg/dL C-Reactive Protein (<10.0) mg/L Procalcitonin 0.21 H (0.02-0.09) ng/mL 02/27/19 02/27/19 02/28/19 Range/Units 18:24 20:30 06:42 WBC (3.8-10.6) k/uL Hgb (13.0-17.5) gm/dL Hct (39.0-53.0) % MCV (80.0-100.0) fL MCH (25.0-35.0) pg RDW (11.5-15.5) % Neutrophils # (Manual) (1.3-7.7) k/uL Monocytes # (Manual) (0-1.0) k/uL Eosinophils # (Manual) (0-0.7) k/uL Metamyelocytes # (Man) (0) k/uL Myelocytes # (Manual) (0) k/uL ESR (0-15) mm/hr Sodium (137-145) mmol/L Chloride (98-107) mmol/L Glucose (74-99) mg/dL POC Glucose (mg/dL) 227 H 129 H (75-99) mg/dL C-Reactive Protein 89.9 H (<10.0) mg/L Procalcitonin (0.02-0.09) ng/mL 02/28/19 02/28/19 02/28/19 Range/Units 06:44 06:44 11:45 WBC 27.1 H (3.8-10.6) k/uL Hgb 10.4 L (13.0-17.5) gm/dL Hct 33.1 L (39.0-53.0) % MCV 71.3 L (80.0-100.0) fL MCH 22.5 L (25.0-35.0) pg RDW 19.7 H (11.5-15.5) % Neutrophils # (Manual) 14.00 H (1.3-7.7) k/uL Monocytes # (Manual) 1.36 H (0-1.0) k/uL Eosinophils # (Manual) 7.05 H (0-0.7) k/uL Metamyelocytes # (Man) 0.81 H (0) k/uL Myelocytes # (Manual) 0.54 H (0) k/uL ESR (0-15) mm/hr Sodium 130 L (137-145) mmol/L Chloride 95 L (98-107) mmol/L Glucose 113 H (74-99) mg/dL POC Glucose (mg/dL) 180 H (75-99) mg/dL C-Reactive Protein (<10.0) mg/L Procalcitonin (0.02-0.09) ng/mL Microbiology - Last 24 Hours (Table) 02/26/19 11:20 Blood Culture - Preliminary Blood No Growth after 48 hours 02/27/19 20:45 Gram Stain - Preliminary Sputum Sputum Culture - Preliminary Assessment and Plan Plan: 1 acute hypoxic respiratory failure, secondary to above mentioned issues and complications. 2 shortness of breath, subacute 3 new onset left-sided pleural effusion, post a diagnostic thoracentesis with a total of 1 L of pleural fluid was evacuated from the left lung. 4 diffuse bilateral pulmonary lesions/nodules of various sizes and distribution. Rule out metastatic disease knowing that the patient has a new onset left-sided pleural effusion and mediastinal lymphadenopathy. Rule out metastatic bronchogenic carcinoma. Rule out lymphoma. Rule out septic embolization secondary to endocarditis. Rule out opportunistic infection knowing that the patient has been immunosuppressed with a combination of CellCept and prednisone. Rule out vasculitis including Iliana's dermatosis. Rule out pulmonary manifestations of polymyositis. 5 questionable polymyositis with elevated CPK levels. Underlying ILD is not certain at this point in time. 6 elevated CPKs 7 elevated sed rate and CRP 8 eosinophilia 9 COPD 7 diabetes mellitus 11 hypertension 12 BPH 13. Peripheral neuropathy Plan I contacted [facility] I talked to Dr. Horvath, the cloth drier in charge of his case who also happens to be a muscle specialist. She the muscle specialist and has interest and poor this myositis. She is not certain of the diagnosis. She is considering alternatives diagnoses include malignancy and she is highly concerned of septic embolization secondary to endocarditis. The blood cultures been negative thus far negative for cardiac exam shows no evidence of any endocarditis in the valves. She wanted the patient to be chance of back to [facility]. I'm very receptive to her suggestion knowing that while her workup has already been done [facility] and the patient would need an extensive rheumatologic and infectious and malignancy workup that can be performed at [facility]. I performed a thoracentesis on this patient for symptomatic purposes. The patient was discharged home to be followed up by the [facility], probably readmitted.. Go home on home oxygen at 2 L. Pleural fluid was sent for cytology, cytometry, chemistry, cultures.
[2019-02-28 15:42] VITALS: BP 136/84; TEMP 98.1
[2019-02-28 16:05] VITALS: PULSE 96
[2019-02-28 16:36] LABS: Glucose,Whole Blood 206 mg/dL (75-99)
--- NOTE | 2019-02-28 21:54 | PCN ---
PROCEDURE NOTE PROCEDURE: Thoracentesis. PREOP DIAGNOSIS: Left-sided pleural effusion. POSTOP DIAGNOSIS: Left-sided pleural effusion Indication Pleural effusion. A time-out was completed verifying correct patient, procedure, site, positioning , and implant (s) or special equipment if applicable. Ultrasound guidance was/was not used and appropriate fluid pocket was identified and marked. Patient was positioned, prepped and draped in usual sterile fashion. Lidocaine was used to anesthetize the area. A Thoracentesis catheter was introduced into the pleural space and fluid was removed. Blood loss was none. A chest x-ray was ordered to evaluate for pneumothorax. Total Fluid Removed 1 L Color of Fluid dark turbid yellowish pleural effusion Fluid was/was not sent for appropriate laboratory tests. Patient tolerated the procedure well and there were no complications. No complications. No pneumothorax following a chest x-ray. MMODL / IJN: [id number] /
[2019-03-01] MEDS ORDERED: METOPROLOL SUCCINATE (ER) 100 MG TAB.ER.24H PO SCH (09:00)
[2019-03-02 14:41] LABS: C-ANCA <1:20 Titer (<1:20); P-ANCA <1:20 Titer (<1:20)
== END 2019-02-28 18:43 | disposition home or self-care (01) | DRG 193 ==
LOC: EC 10:17 → 3SCARD 12:53
PROVIDERS: ADMIT Internal Medicine; ATTEND Internal Medicine
PROC: 0W9B3ZZ Drainage of Left Pleural Cavity, Percutaneous Approach (ICD-10-PCS; principal; 2019-02-26)
DX: J18.9 Pneumonia, unspecified organism (principal); J96.21 Acute and chronic respiratory failure with hypoxia; J44.0 Chronic obstructive pulmonary disease with (acute) lower respiratory infection; J90 Pleural effusion, not elsewhere classified; C79.51 Secondary malignant neoplasm of bone; M33.20 Polymyositis, organ involvement unspecified; C78.02 Secondary malignant neoplasm of left lung; C78.01 Secondary malignant neoplasm of right lung; N40.0 Benign prostatic hyperplasia without lower urinary tract symptoms; G89.29 Other chronic pain; M54.9 Dorsalgia, unspecified; J84.10 Pulmonary fibrosis, unspecified; K21.9 Gastro-esophageal reflux disease without esophagitis; R74.8 Abnormal levels of other serum enzymes; R26.9 Unspecified abnormalities of gait and mobility; I10 Essential (primary) hypertension; C80.1 Malignant (primary) neoplasm, unspecified; F17.200 Nicotine dependence, unspecified, uncomplicated; F03.90 Unspecified dementia, unspecified severity, without behavioral disturbance, psychotic disturbance, mood disturbance, and anxiety; Z82.49 Family history of ischemic heart disease and other diseases of the circulatory system; Z99.81 Dependence on supplemental oxygen; Z87.01 Personal history of pneumonia (recurrent); Z86.010 Personal history of colon polyps; Z71.6 Tobacco abuse counseling; Z79.51 Long term (current) use of inhaled steroids; Z79.52 Long term (current) use of systemic steroids; Z79.899 Other long term (current) drug therapy; Z79.4 Long term (current) use of insulin; Z83.3 Family history of diabetes mellitus; Z80.3 Family history of malignant neoplasm of breast
CPT/HCPCS: 36415; 71045; 71046; 71260; 80048; 80053; 83605; 83735; 83880; 84145; 84484; 85025; 85610; 85652; 85730; 86140; 86255; 87040; 87070; 87102; 87116; 87205; 87206; 87252; 87496; 87498; 87502; 87529; 87634; 87798; 89050; 93005; 93306; 94640; 94760; 96374; 99285